=== PATIENT | female | born 1950 | race Caucasian/White ===

== ENCOUNTER 2017-01-24 09:18 | Day surgery (SDC) | payer MEDICARE, OTHER ==
[2017-01-21 08:12] VITALS: BMI 30.9
[2017-01-24] MEDS ORDERED: oxyCODONE HCL 5 MG TABLET PO PRN (12:29)
[2017-01-24] MEDS ORDERED: ONDANSETRON 4 MG/2 ML VIAL IVPUSH PRN (12:29)
[2017-01-24] MEDS ORDERED: LACTATED RINGERS SOLUTION 1,000 ML IV SCH (12:30)
[2017-01-24] MEDS ORDERED: ceFAZolin SODIUM 1 GM VIAL IVPB ONE (13:22)
[2017-01-24] MEDS ORDERED: LIDOCAINE HCL 1%, 10 MG/ML (20ML VIAL) PNB ONE (13:42)
[2017-01-24] MEDS ORDERED: BACITRACIN 50,000 UNITS VIAL TP ONE (13:55)
--- NOTE | 2017-01-24 14:32 | OP ---
Operative Note - Note: Operative Date: 01/24/17 Pre-Operative Diagnosis: urge incontinence Operation: full interstim implant Implants: interstim neuromodulator Post-Operative Diagnosis: Same as Pre-op Surgeon: Silvino Allison Anesthesia: Local, Fractional
[2017-01-24 15:40] VITALS: TEMP 97.6
[2017-01-24 16:28] VITALS: BP 121/76; PULSE 59
--- NOTE | 2017-01-25 12:12 | OP ---
DATE OF OPERATION: 01/24/2017 PREOPERATIVE DIAGNOSIS: Urge incontinence. POSTOPERATIVE DIAGNOSIS: Urge incontinence. PROCEDURE: 1. Complete InterStim system implantation with incision and implantation of tined quadripolar lead electrodes into foramen S3. 2. Fluoroscopic guidance for needle placement. 3. Subcutaneous implantation of sacral nerve neurostimulator, electronic analysis and complex programming. INDICATIONS FOR THE PROCEDURE: Patient has severe urinary frequency and urgency with urge incontinence. The patient was informed of the risks and benefits of the procedures and agreed to undertake this procedure. DESCRIPTION OF PROCEDURE: The patient was properly identified and placed in prone position as per operating room protocol. MAC anesthesia was administered. The patient was given 1 g of Ancef. Pillows were placed under the lower abdomen to flatten the sacrum and under the shins to allow the toes to dangle freely. Tape was placed on each buttock and pulled laterally to separate cheeks adequately to visualize anal sphincter. The patient was prepped and draped in the usual sterile manner using ChloraPrep prep solution. The C-arm was moved into the PA position to provide fluoroscopy visual and the midline of the vertebrae. S1 notches and medial foraminal borders were marked. The C-arm was moved to the lateral position to image the area from sacral promontory to the coccyx. Local injection of lidocaine was administered. A 3.5-inch size needle was introduced approximately 2 cm above the SI notch and 3 cm lateral to the vertebral midline, feeling for foraminal margins until the S3 foramen was identified and penetrated. The depth of the needle was confirmed and adjusted fluoroscopically. Proper needle position was confirmed by patient identification of location of sensation, direct observation of the lifting of the perineum or bellowing, and observation of plantar flexion of the great toe utilizing the test stimulator box. The needle stylet was removed and a directional guidewire was placed and confirmed fluoroscopically. The foramen needle was removed. An incision was made peripherally to the directional guidewire through the fascial layer. The dilator and introducer sheath were placed over the directional guidewire and directed into the foramen until the opaque marker of the dilator was seen on the anterior rim of the sacrum. The dilator obturator was unlocked and removed. The lead was then placed through the introducer sheath to the first white line. Position was checked fluoroscopically. The lead was then further introduced until 3 electrodes were visible below the sacrum. Each electrode was tested for location of patient sensation, visualization of ulises and plantar flexion of the great toe. After satisfactory positioning was confirmed, under continuous fluoroscopy, the introducer sheath was retracted, deploying the lead tines into the perisacral tissue. Further incision was made into the subcutaneous tissue posterior to the iliac crest and blunt dissection was continued until the gluteal fascia was identified and hemostasis was achieved, allowing for a sufficient pocket for the neurostimulator. A tunneling tool and tube were placed from the lead subcutaneously to the incised pocket site. The tunneling tool was removed and the lead was fed through the tube and pulled out at the pocket site. The lead was cleansed of bodily fluids and a boot was placed over the lead. The lead was inserted into the InterStim II pulse generator and the metal bands were aligned with the white lead tip clearly visible in the distal portion of the pulse generator header. The single set screw was tightened with the hex wrench. The pulse generator was placed into the subcutaneous pocket with the etched identification side placed upward and the extension wrapped counterclockwise around the pulse generator. The programming head was placed over the implanted neurostimulator. The impedance was verified to ensure adequate lead placement and the parameters were within normal limits. If impedance is greater than the normal limits, a second interrogation is required. If the second interrogation is required, further troubleshooting may be required. Impedances were checked, confirmed to be within normal limits at greater than 50 and less than 4000. After implantation of the neurostimulator was completed, complex programming of the neurostimulator was performed based on impedance values. Final electrode sensations were set to 0+1-2-. Estimated time for analysis and complex programming was 30 minutes. The wounds were irrigated with antibiotic solution and water and closed with a subcutaneous and subcuticular stitch. Counts were correct. Steri-Strips and gauze were placed over the incision under the cable connector. The estimated blood loss was less than 3 mL. The patient was transferred to postop in satisfactory condition. Using the clinician statistical programmer, the patient was programmed to the lead of optimum sensation and given instructions on utilizing the patient statistical programmer prior to discharge. Conrad [id number]
== END 2017-01-24 16:15 | disposition home or self-care (01) ==
LOC: JASU-SURG 09:18
PROVIDERS: ATTEND Urology
PROC: 4B01XVZ Measurement of Peripheral Nervous Stimulator, External Approach (ICD-10-PCS; 2017-01-24)
PROC: 0JH70BZ Insertion of Single Array Stimulator Generator into Back Subcutaneous Tissue and Fascia, Open Approach (ICD-10-PCS; 2017-01-24)
PROC: 01HY0MZ Insertion of Neurostimulator Lead into Peripheral Nerve, Open Approach (ICD-10-PCS; 2017-01-24)
PROC: 4B01XVZ Measurement of Peripheral Nervous Stimulator, External Approach (ICD-10-PCS; 2017-01-24)
PROC: 0JH70BZ Insertion of Single Array Stimulator Generator into Back Subcutaneous Tissue and Fascia, Open Approach (ICD-10-PCS; principal; 2017-01-24 11:00)
DX: N39.41 Urge incontinence (principal); R35.0 Frequency of micturition
CPT/HCPCS: 64581; 64590; 95972; C1767; 76000-TC; 94760

== ENCOUNTER 2017-09-01 09:04 | Emergency (ER) | payer MEDICARE, OTHER ==
[2017-09-01 09:11] VITALS: TEMP 97.7; BMI 31.4
--- NOTE | 2017-09-01 10:00 | PDOC ---
History of Present Illness - History of Present Illness Initial Comments: 09/01/17 12:58 Patient is a 67 year old female with a significant past medical history of Seizure, Dementia, Hypercholesterolemia, recurrent UTI, Diet controlled diabetes , who presents to the ED with complaints of increased crying that began earlier this week. As per patient's , patient has been experiencing increased movement of her bowels, which he states began to worry him, prompting him to bring her into the ED for further evaluation. He reports taking the patient to see Dr. Maya but states the symptoms have been persistent since the appointment. Denies chest pain, Sob. Denies nausea, vomiting. Denies contact with sick individuals, out of state travelling. Denies diarrhea, constipation, dysuria, hematuria. Denies fever,chills. Denies any other symptoms. Allergies: Ciprofloxacin Social history: Surgical history: Right foot surgery. PMD: Dr. 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 - Suicide/Smoking/Psychosocial Hx Smoking History: Never smoked Have you smoked in the past 12 months: No Information on smoking cessation initiated: No Hx Alcohol Use: No Drug/Substance Use Hx: No Substance Use Type: None Hx Substance Use Treatment: No <Ge Rand - Last Filed: 09/01/17 13:03> - Past Medical History Allergies/Adverse Reactions: Allergies Allergy/AdvReac Type Severity Reaction Status Date / Time ciprofloxacin Allergy Intermediate Rash Verified 09/01/17 09:06 Home Medications: Ambulatory Orders Albuterol Sulfate Inhaler - [Ventolin HFA Inhaler -] 1 - 2 inh PO QID 12/31/14 Aspirin [Ecotrin] 81 mg PO DAILY 12/31/14 Atorvastatin Ca [Lipitor] 10 mg PO HS 01/21/17 Memantine HCl/Donepezil HCl [Namzaric 7 mg-10 mg Capsule] 1 each PO DAILY Oxybutynin Chloride [Oxybutynin Chloride ER] 10 mg PO DAILY 01/21/17 Phenobarbital 32.4 mg PO BID 01/21/17 Phenobarbital 60 mg PO BID 01/21/17 Amox-Tr/K Cl [Augmentin - 500Mg Tablet] 1 tab PO BID #14 tab 01/24/17 Cephalexin [Keflex] 500 mg PO BID #14 capsule 09/01/17 Review of Systems - Review of Systems Able to Perform ROS?: Yes Comments:: 09/01/17 12:58 GENERAL/CONSTITUTIONAL: No fever or chills. No weakness. HEAD, EYES, EARS, NOSE AND THROAT: No change in vision. No ear pain or discharge. No sore throat. CARDIOVASCULAR: No chest pain or shortness of breath. RESPIRATORY: No cough, wheezing, or hemoptysis. GASTROINTESTINAL: +Frequent bowel movements. No nausea, vomiting, diarrhea or constipation. GENITOURINARY: No dysuria, frequency, or change in urination. MUSCULOSKELETAL: No joint or muscle swelling or pain. No neck or back pain. SKIN: No rash NEUROLOGIC: No headache, vertigo, loss of consciousness, or change in strength/ sensation. ENDOCRINE: No increased thirst. No abnormal weight change. HEMATOLOGIC/LYMPHATIC: No anemia, easy bleeding, or history of blood clots. ALLERGIC/IMMUNOLOGIC: No hives or skin allergy. <Chris Wilson - Last Filed: 09/01/17 12:58> *Physical Exam - Vital Signs Last Vital Signs Temp Pulse Resp BP Pulse Ox 97.7 F 70 16 112/69 100 09/01/17 09:06 09/01/17 09:06 09/01/17 09:06 09/01/17 09:06 09/01/17 09:06 - Physical Exam Comments: 09/01/17 12:59 GENERAL: Awake, alert, in no acute distress HEAD: No signs of trauma EYES: PERRLA, EOMI, sclera anicteric, conjunctiva clear ENT: Auricles normal inspection, hearing grossly normal, nares patent, oropharynx clear without exudates. Moist mucosa NECK: Normal ROM, supple, no lymphadenopathy, JVD, or masses LUNGS: Breath sounds equal, clear to auscultation bilaterally. No wheezes, and no crackles HEART: Regular rate and rhythm, normal S1 and S2, no murmurs, rubs or gallops ABDOMEN: Soft, nontender, normoactive bowel sounds. No guarding, no rebound. No masses EXTREMITIES: Normal range of motion, no edema. No clubbing or cyanosis. No cords, erythema, or tenderness NEUROLOGICAL: +AAOx0. +Non verbal Cranial nerves II through XII grossly intact. Normal speech, normal gait SKIN: Warm, Dry, normal turgor, no rashes or lesions noted. <Chris Wilson - Last Filed: 09/01/17 12:58> - Vital Signs Last Vital Signs Temp Pulse Resp BP Pulse Ox 97.7 F 70 16 112/69 100 09/01/17 09:06 09/01/17 09:06 09/01/17 09:06 09/01/17 09:06 09/01/17 09:06 <Ge Rand - Last Filed: 09/01/17 13:03> Heart Score/ECG Review #1 ECG reviewed & interpreted by me at: 10:10 09/01/17 12:09 NSR 58, no std/filipe, TWI III, normal axis, normal intervals, QTC 422 msec <Ge Rand - Last Filed: 09/01/17 13:03> ED Treatment Course - LABORATORY CBC & Chemistry Diagram: 09/01/17 10:25 09/01/17 10:25 - ADDITIONAL ORDERS Additional order review: Laboratory Results 09/01/17 09/01/17 11:00 10:25 Sodium 141 Potassium 4.0 Chloride 106 Carbon Dioxide 31 Anion Gap 4 L BUN 13 Creatinine 0.8 Creat Clearance w eGFR > 60 Random Glucose 88 Calcium 8.6 Magnesium 2.4 Total Bilirubin 0.2 AST 22 ALT 14 Alkaline Phosphatase 137 H Creatine Kinase 188 Creatine Kinase Index 1.7 CK-MB (CK-2) 3.291 Troponin I < 0.02 Total Protein 7.2 Albumin 3.7 Urine Color Ltyellow Urine Appearance Clear Urine pH 8.0 Ur Specific [place] 1.008 Urine Protein Negative Urine Glucose (UA) Negative Urine Ketones Negative Urine Blood 2+ H Urine Nitrite Negative Urine Bilirubin Negative Urine Urobilinogen Negative Ur Leukocyte Esterase 1+ H 09/01/17 10:25 RBC 4.24 MCV 92.7 MCHC 33.6 RDW 13.9 MPV 10.1 Neutrophils % 55.9 Lymphocytes % 21.9 Monocytes % 7.4 Eosinophils % 14.0 H Basophils % 0.8 <Chris Wilson - Last Filed: 09/01/17 12:58> - LABORATORY CBC & Chemistry Diagram: 09/01/17 10:25 09/01/17 10:25 <Ge Rand - Last Filed: 09/01/17 13:03> Medical Decision Making - Medical Decision Making 09/01/17 09:59 A portion of this note was documented by scribe services under my direction. I have reviewed the details of the note, within reason, and agree with the documentation with the following case summary and management plan written by me. Patient treated in the ED. Nursing notes are reviewed and incorporated into the medical decision-making. Vital signs reviewed. Peripheral IV access obtained by the nurse, laboratory studies are drawn and sent, reviewed and interpreted by myself. Vital Signs Temp Pulse Resp BP Pulse Ox 97.7 F 70 16 112/69 100 09/01/17 09:06 09/01/17 09:06 09/01/17 09:06 09/01/17 09:06 09/01/17 09:06 67 year old female with diet-controlled diabetes, hyperlipidemia, seizure disorder, dementia, history urinary tract infections presents with increasing crying. The history is obtained from the patient's as the patient is demented. The patient's reports that the last 2 weeks, the patient has been increasingly crying more often though without other acute focal pathology. Has noticed that the patient has been moving her bowels more frequent throughout the night but not loose or diarrhea like. The patient never endorsed any nausea, vomiting or fevers or abdominal pain. Patient otherwise cannot specify any acute symptoms. The patient went to follow-up with Dr. Maya for visit at that time. However, since then the patient has been having these persistent symptoms and brought the patient to the ER. The patient overall is nontoxic appearing and without complaints. She has had some increased stooling but not diarrhea like. I have low suspicion for infection at this time. We'll obtain a urinalysis. I will touch base with the patient's primary care physician. The patient is otherwise well-appearing. Could this crying be secondary to her advancing dementia? I feel that the patient is otherwise can be discharged with follow-up at home. I do not suspect colitis or gastroenteritis or other acute abdominal pathology at this time. 09/01/17 13:00 CBC, BMP 09/01/17 10:25 09/01/17 10:25 CMP Sodium 141 mmol/L (136-145) 09/01/17 10:25 Potassium 4.0 mmol/L (3.5-5.1) 09/01/17 10:25 Chloride 106 mmol/L (98-107) 09/01/17 10:25 Carbon Dioxide 31 mmol/L (21-32) 09/01/17 10:25 Anion Gap 4 (8-16) L 09/01/17 10:25 BUN 13 mg/dL (7-18) 09/01/17 10:25 Creatinine 0.8 mg/dL (0.55-1.02) 09/01/17 10:25 Creat Clearance w eGFR > 60 (>60) 09/01/17 10:25 Random Glucose 88 mg/dL (74-106) 09/01/17 10:25 Calcium 8.6 mg/dL (8.5-10.1) 09/01/17 10:25 Magnesium 2.4 mg/dL (1.8-2.4) 09/01/17 10:25 Total Bilirubin 0.2 mg/dL (0.2-1.0) 09/01/17 10:25 AST 22 U/L (15-37) 09/01/17 10:25 ALT 14 U/L (12-78) 09/01/17 10:25 Alkaline Phosphatase 137 U/L (45-117) H 09/01/17 10:25 Creatine Kinase 188 IU/L (26-192) 09/01/17 10:25 Creatine Kinase Index 1.7 % (0.0-5.0) 09/01/17 10:25 CK-MB (CK-2) 3.291 ng/mL (0.5-3.6) 09/01/17 10:25 Troponin I < 0.02 ng/ml (0.00-0.05) 09/01/17 10:25 Total Protein 7.2 g/dl (6.4-8.2) 09/01/17 10:25 Albumin 3.7 g/dl (3.4-5.0) 09/01/17 10:25 Urine Test Results Urine Color Ltyellow 09/01/17 11:00 Urine Appearance Clear 09/01/17 11:00 Urine pH 8.0 (5.0-8.0) 09/01/17 11:00 Ur Specific [place] 1.008 (1.001-1.035) 09/01/17 11:00 Urine Protein Negative (NEGATIVE) 09/01/17 11:00 Urine Glucose (UA) Negative (NEGATIVE) 09/01/17 11:00 Urine Ketones Negative (NEGATIVE) 09/01/17 11:00 Urine Blood 2+ (NEGATIVE) H 09/01/17 11:00 Urine Nitrite Negative (NEGATIVE) 09/01/17 11:00 Urine Bilirubin Negative (<2.0 mg/dL) 09/01/17 11:00 Ur Leukocyte Esterase 1+ (NEGATIVE) H 09/01/17 11:00 Ur Epithelial Cells Rare /HPF (FEW) 09/01/17 11:00 We have placed a page out to Dr. Maya. Awaiting phone calls. However, pt's is requesting to go home. It is unclear why the patient is moving her bowels more frequently (not diarrhea ). However, given that the patient is overall well-appearing and nontoxic, the patient can be discharged with outpatient follow up. I will prescribe keflex for the UTI. I discussed the physical exam findings, ancillary test results and final diagnoses with the patient. I answered all of the patient's questions. The patient was satisfied with the care received and felt comfortable with the discharge plan and treatment plan. The patient will call their primary care physician within 24 hours to arrange follow-up and will return to the Emergency Department with any new, persistant or worsening symptoms. <Ge Rand - Last Filed: 09/01/17 13:03> *DC/Admit/Observation/Transfer - Attestations Scribe Attestion: 09/01/17 12:59 Documentation prepared by Chris Wilson, acting as lpn or medical assistant for Ge Rand MD, /DO. <Chris Wilson - Last Filed: 09/01/17 12:58> - Discharge Dispostion Decision to Admit order: No <Ge Rand - Last Filed: 09/01/17 13:03> Diagnosis at time of Disposition: UTI (urinary tract infection) Qualifiers: Urinary tract infection type: site unspecified Hematuria presence: without hematuria Qualified Code(s): N39.0 - Urinary tract infection, site not specified - Discharge Dispostion Disposition: HOME Condition at time of disposition: Stable - Prescriptions Prescriptions: Cephalexin [Keflex] 500 mg PO BID #14 capsule - Referrals Referrals: Irsael Maya MD [Primary Care Provider] - - Patient Instructions Printed Discharge Instructions: DI for Urinary Tract Infection (UTI) Additional Instructions: Please take the keflex 500 mg every 12 hours for the next week for the urine infection. Please take them every day. Follow up with Dr. Maya. Print Language: [place] - Post Discharge Activity
[2017-09-01 10:38] LABS: BASO % 0.8 % (0-2.0); HEMATOCRIT 39.4 % (32.4-45.2); HEMOGLOBIN 13.2 GM/dL (10.7-15.3); LYMPH % 21.9 % (8-40); MCH 31.1 pg (25.7-33.7); MCHC 33.6 g/dl (32.0-36.0); MEAN CELL VOLUME 92.7 fl (80-96); MEAN PLT VOLUME 10.1 fl (7.5-11.1); MONO % 7.4 % (3.8-10.2); NEUT % 55.9 % (42.8-82.8); PLATELET COUNT 184 K/MM3 (134-434); RBC 4.24 M/mm3 (3.60-5.2); RDW 13.9 % (11.6-15.6); WHITE BLOOD COUNT 6.6 K/mm3 (4.0-10.0)
[2017-09-01 10:59] LABS: ALBUMIN 3.7 g/dl (3.4-5.0); ANION GAP 4 (8-16); BILIRUBIN,TOTAL 0.2 mg/dL (0.2-1.0); BLOOD UREA NITROGEN 13 mg/dL (7-18); CALCIUM 8.6 mg/dL (8.5-10.1); CHLORIDE 106 mmol/L (98-107); CO2 31 mmol/L (21-32); CREATININE 0.8 mg/dL (0.55-1.02); GLUCOSE,RANDOM 88 mg/dL (74-106); MAGNESIUM 2.4 mg/dL (1.8-2.4); SGOT/AST 22 U/L (15-37); SGPT/ALT 14 U/L (12-78); SODIUM 141 mmol/L (136-145); TOT PROT 7.2 g/dl (6.4-8.2)
[2017-09-01 11:02] LABS: ALK PHOS 137 U/L (45-117)
[2017-09-01 11:21] LABS: URINE APPEARANCE CLEAR; URINE BILIRUBIN NEGATIVE (<2.0 mg/dL); URINE COLOR LTYELLOW; URINE GLUCOSE (UA) NEGATIVE (NEGATIVE); URINE KETONE NEGATIVE (NEGATIVE); URINE NITRITE NEGATIVE (NEGATIVE); URINE PROTEIN NEGATIVE (NEGATIVE); URINE UROBILINOGEN NEGATIVE mg/dL (0.2-1.0)
[2017-09-01 11:24] LABS: URINE LEUK ESTERASE 1+ (NEGATIVE)
[2017-09-01 12:00] LABS: EPI CELLS RARE /HPF (FEW)
[2017-09-01] MEDS ORDERED: CEPHALEXIN MONOHYDRATE 500 MG CAPSULE (UD) PO ONE (13:34)
[2017-09-01] MEDS ORDERED: CEPHALEXIN MONOHYDRATE 500 MG CAPSULE (UD) ONE (13:36)
[2017-09-01 13:53] VITALS: BP 129/79; PULSE 73
--- NOTE | 2017-09-02 09:46 | EKG ---
Test Reason : Blood Pressure : / mmHG Vent. Rate : 058 BPM Atrial Rate : 058 BPM P-R Int : 154 ms QRS Dur : 074 ms QT Int : 430 ms P-R-T Axes : 046 008 012 degrees QTc Int : 422 ms SINUS BRADYCARDIA OTHERWISE NORMAL ECG NO PREVIOUS ECGS AVAILABLE Confirmed by KELSI CEBALLOS MD ([id number]) on 09/02/2017 9:45:50 AM Referred By: Confirmed By:KELSI CEBALLOS MD
== END 2017-09-01 13:54 | disposition home or self-care (01) ==
LOC: JER 09:04
DX: N39.0 Urinary tract infection, site not specified (principal); G30.8 Other Alzheimer's disease; F02.80 Dementia in other diseases classified elsewhere, unspecified severity, without behavioral disturbance, psychotic disturbance, mood disturbance, and anxiety; E11.9 Type 2 diabetes mellitus without complications; E78.00 Pure hypercholesterolemia, unspecified; Z86.69 Personal history of other diseases of the nervous system and sense organs; Z87.09 Personal history of other diseases of the respiratory system
CPT/HCPCS: 36415; 80053; 81003; 81015; 82550; 82553; 83735; 84484; 85025; 87086; 93005; 93010; 99283-25

== ENCOUNTER 2017-09-07 07:15 | Emergency (ER) | payer MEDICARE, OTHER ==
--- NOTE | 2017-09-07 07:18 | PDOC ---
Attending Attestation - HPI HPI: 09/07/17 08:01 The patient is a 67 year old female, with a significant past medical history of seizures, dementia, hyperlipidemia, recurrent UTIs, and diet controlled diabetes , who presents to the emergency department BIB from home, for evaluation of altered mental status since this morning. As per , the patient was difficult to arouse this morning, and was making a gagging noise. The reports she was not shaking, but difficult to wake up. He reports patient is now back at baseline. reports she is minimally verbal, and incontinent of stool and urine at baseline. No recent travel or sick contacts. - Physicial Exam PE: 09/07/17 08:04 Constitutional: Awake, alert, oriented to person. No acute distress. Nonverbal , but able to track movement with her eyes and smile. Head: Normocephalic. Atraumatic Eyes: PERRL. EOMI. Conjunctivae are not pale. ENT: Mucous membranes are moist and intact. Posterior pharynx without exudates or erythema. Uvula midline. No tongue biting Neck: Supple. Full ROM. No lymphadenopathy. Cardiovascular: Regular rate. Regular rhythm. S1, S2 regular. Distal pulses are 2+ and symmetric. Pulmonary/Chest: Poor inspiratory effort, but otherwise clear to auscultation bilaterally. No evidence of respiratory distress. No wheezing, rales or rhonchi. Abdominal: Soft and non-distended. There is no tenderness. No rebound, guarding or rigidity. No organomegaly. No palpable masses. Good bowel sounds. Back: No CVA tenderness. Musculoskeletal: No edema. No cyanosis. No clubbing. Full range of motion in all extremities. No calf tenderness. Radial/pedal pulses are intact and 2+ bilaterally Skin: Skin is warm and dry. No petechiae. No purpura. Neurological: Alert and oriented to person. Cranial nerves II-XII are grossly intact. Strength is grossly symmetric. No sensory deficits. Psychiatric: Good eye contact. Normal interaction, affect and behavior. - Medical Decision Making 09/07/17 08:01 Documentation prepared by Joby García, acting as medical laboratory technicians for Tenisha Real DO. <Joby García - Last Filed: 09/07/17 08:11> - Resident Resident Name: Young,Dwight - ED Attending Attestation I have performed the following: I have examined & evaluated the patient, The case was reviewed & discussed with the resident, I agree w/resident's findings & plan, Exceptions are as noted - Medical Decision Making 09/07/17 07:18 I, Dr. Tenisha Real, DO, attest that this document has been prepared under my direction and personally reviewed by me in its entirety. I further attest, that it accurately reflects all work, treatment, procedures and medical decision -making performed by me. 09/07/17 08:08 a/p: 67yo female with alzheimers dementia and hx of seizures biba for eval of being unarousable this am -per the , pt made girgling sound, when he tried to wake her up she was difficult to arouse -arrives in the ED awake, minimally verbal at baseline -no shaking per the - states at baseline MS at this time -pt follows commands, smiles, tracks with eyes, moving all extremities -hx of UTI -hypothermic on rectal upon arrival -will obtain labs, cultures, ua, head ct, ekg, cxr -will monitor and reassess 09/07/17 08:10 repeat temp is 97 09/07/17 10:00 pt crying that she wants to go home per , will take phenobarb for seizures in the Am, but sometimes throws the pills out at night no shaking, drooling, foaming at the mouth this AM will dose am dose of phenobarb no acute findings on labs or head ct or cxr will po challenge has been at baseline MS 09/07/17 12:55 pt tolerated PO has been at baseline MS family and pat want to go home discussed all reasons to return to the ED. pt ambulatory in the ED wants to take her home <Tenisha Real - Last Filed: 09/07/17 12:55> Heart Score/ECG Review - ECG Intrepretation Comment:: 09/07/17 08:08 sinus at 77, nl axis, nl interval, no acute st/t wave findings, t wave flattening diffusely <Tenisha Real - Last Filed: 09/07/17 12:55>
[2017-09-07 07:22] VITALS: BMI 28.3
--- NOTE | 2017-09-07 07:38 | PDOC ---
History of Present Illness - General Chief Complaint: Altered Mental Status Stated Complaint: POSSIBLE SEIZURE Time Seen by Provider: 09/07/17 07:17 - History of Present Illness Initial Comments: 09/07/17 07:36 67 yo F with h/o Seizure, Dementia, Hypercholesterolemia, recurrent UTI, Diet controlled diabetes, BIBA with AMS. Per EMS patient called EMS because patient was unresponsive to painful stimuli and unarousable this AM, when he attempted to wake her up. states that patient was found in bed making "gargling" sounds, with no witnessed convulsions or abnormal posturing this AM. No report of fall, head/neck/back trauma. Last known well yesterday evening 1000 PM before going to sleep. EMS states that patient was urinary incontinent upon arrival. Patient with baseline urinary and fecal incontinence. Seen in [facility] ED earlier this week ( 09/01) for increased crying spells. Patient unable to provide history ( non verbal at baseline). PMH: as noted above SHx: Unable to provide. Surgical Hx: Right foot surgery. PMD: Dr. Maya Allergies: Ciprofloxacin Past History - Past Medical History Allergies/Adverse Reactions: Allergies Allergy/AdvReac Type Severity Reaction Status Date / Time ciprofloxacin Allergy Intermediate Rash Verified 09/07/17 07:16 Home Medications: Ambulatory Orders Aspirin [Ecotrin] 81 mg PO DAILY 12/31/14 Atorvastatin Ca [Lipitor] 10 mg PO HS 01/21/17 Oxybutynin Chloride [Oxybutynin Chloride ER] 10 mg PO DAILY 01/21/17 Phenobarbital 32.4 mg PO BID 01/21/17 Phenobarbital 60 mg PO BID 01/21/17 Albuterol Sulfate Inhaler - [Ventolin Hfa Inhaler -] 1 - 2 inh PO Q4H PRN Cetirizine HCl [Zyrtec -] 10 mg PO DAILY 09/07/17 Escitalopram Oxalate [Lexapro -] 10 mg PO DAILY 09/07/17 Fluticasone Prop 0.05% Nasal [Flonase -] 1 spray NS BID 09/07/17 Folic Acid 1 mg PO DAILY 09/07/17 Memantine HCl/Donepezil HCl [Namzaric 28 mg-10 mg Capsule] 1 each PO DAILY 09/07 Asthma: Yes COPD: No Dementia: Yes Disorders: Yes (HEMATURIA, incontinency) HTN: Yes Hypercholesterolemia: Yes Seizures: Yes - Suicide/Smoking/Psychosocial Hx Smoking History: Never smoked Have you smoked in the past 12 months: No Information on smoking cessation initiated: No Hx Alcohol Use: No Drug/Substance Use Hx: No Substance Use Type: None Hx Substance Use Treatment: No Review of Systems - Review of Systems Comments:: 09/07/17 07:40 Unable to obtain. Limited 2/2 AMS. *Physical Exam - Vital Signs Last Vital Signs Temp Pulse Resp BP Pulse Ox 95.4 F L 80 20 103/41 100 09/07/17 07:16 09/07/17 07:16 09/07/17 07:16 09/07/17 07:16 09/07/17 07:16 - Physical Exam Comments: 09/07/17 07:40 GENERAL: Awake, alert, in no acute distress. Non verbal at baseline. Non communicative. HEAD: No signs of trauma, normocephalic, atraumatic EYES: PERRLA, EOMI, sclera anicteric, conjunctiva clear ENT: Auricles normal inspection, hearing grossly normal, nares patent, oropharynx clear without exudates. Moist mucosa NECK: Normal ROM, supple, no lymphadenopathy, JVD, or masses LUNGS: No distress, speaks full sentences, clear to auscultation bilaterally HEART: Regular rate and rhythm, normal S1 and S2, no murmurs, rubs or gallops, peripheral pulses normal and equal bilaterally. ABDOMEN: Soft, nontender, normoactive bowel sounds. No guarding, no rebound. No masses EXTREMITIES : Normal inspection, Normal range of motion, no edema. No clubbing or cyanosis. NEUROLOGICAL:Limited. Cranial nerves II through XII grossly intact. No focal sensorimotor deficits SKIN: Warm, Dry, normal turgor, no rashes or lesions noted ED Treatment Course - LABORATORY CBC & Chemistry Diagram: 09/07/17 07:40 09/07/17 07:40 - RADIOLOGY Radiology Studies Ordered: Category Date Time Status CXRPORT [CHEST X-RAY PORTABLE*] [RAD] Stat Radiology 09/07/17 07:23 Taken Medical Decision Making - Medical Decision Making 09/07/17 07:54 67 yo F with h/o Seizure, Dementia, Hypercholesterolemia, recurrent UTI, Diet controlled diabetes, BIBA with AMS. Alert, non verbal at baselin. No obvious deficits on physical exam. Per patient is now at baseline mental status. VSS. BS ~85 per EMS. Will evaluate for hypoglycemia, seizure/postictal phase, underlying electrolyte abnml, metabolic derangements, toxic and acid- base disturbance, and underlying infections. ED Course: CBC, CMP, Lactic acid, Cardiac Blood cx. Urine cx NS [address] HEAD, CXR, EKG 09/07/17 10:13 CBC: Unremarkable CK: 209 Trop: neg CT HEAD: No acute intracranial pathology. CXR: Unremarkable UA: Neg Phenobarbital 60 mg. Patient can tolerate PO intake. Patient safe for d/c with return precautions. *DC/Admit/Observation/Transfer Diagnosis at time of Disposition: Altered mental status Qualifiers: Altered mental status type: unspecified Qualified Code(s): R41.82 - Altered mental status, unspecified - Referrals Referrals: Israel Maya MD [Primary Care Provider] - - Patient Instructions Printed Discharge Instructions: DI for Altered Mental Status Additional Instructions: Please return to the emergency department with any new or worsening symptoms or concerns. Please follow up with your primary care physician within 72 hours. - Post Discharge Activity - Attestations Physician Attestion: 09/07/17 10:15 I attest to the information provided in this note.
[2017-09-07] MEDS ORDERED: SODIUM CHLORIDE 1,000 ML IV STA (07:47)
[2017-09-07 07:55] LABS: HEMATOCRIT 39.8 % (32.4-45.2); HEMOGLOBIN 13.4 GM/dL (10.7-15.3); MCH 31.3 pg (25.7-33.7); MCHC 33.6 g/dl (32.0-36.0); MEAN CELL VOLUME 93.2 fl (80-96); MEAN PLT VOLUME 9.7 fl (7.5-11.1); PLATELET COUNT 194 K/MM3 (134-434); RBC 4.27 M/mm3 (3.60-5.2); WHITE BLOOD COUNT 5.3 K/mm3 (4.0-10.0)
[2017-09-07 08:07] VITALS: TEMP 97.5
[2017-09-07 08:11] LABS: INR 0.95 (0.82-1.09); PROTHROMBIN TIME (PATIENT) 10.7 SEC (9.7-13.0)
[2017-09-07 08:28] LABS: ALBUMIN 3.6 g/dl (3.4-5.0); ALK PHOS 133 U/L (45-117); ANION GAP 6 (8-16); BILIRUBIN,TOTAL 0.3 mg/dL (0.2-1.0); BLOOD UREA NITROGEN 9 mg/dL (7-18); CHLORIDE 106 mmol/L (98-107); CO2 30 mmol/L (21-32); CREATININE 0.8 mg/dL (0.55-1.02); GLUCOSE,RANDOM 87 mg/dL (74-106); SGPT/ALT 17 U/L (12-78); SODIUM 142 mmol/L (136-145); TOT PROT 7.1 g/dl (6.4-8.2)
[2017-09-07 08:28] LABS: URINE APPEARANCE CLEAR; URINE BILIRUBIN NEGATIVE (<2.0 mg/dL); URINE COLOR LTYELLOW; URINE GLUCOSE (UA) NEGATIVE (NEGATIVE); URINE KETONE NEGATIVE (NEGATIVE); URINE LEUK ESTERASE NEGATIVE (NEGATIVE); URINE NITRITE NEGATIVE (NEGATIVE); URINE PROTEIN NEGATIVE (NEGATIVE); URINE UROBILINOGEN NEGATIVE mg/dL (0.2-1.0)
[2017-09-07 08:39] LABS: POTASSIUM 4.4 mmol/L (3.5-5.1); SGOT/AST 28 U/L (15-37)
[2017-09-07 08:49] LABS: EPI CELLS RARE /HPF (FEW); URINE MUCUS RARE
[2017-09-07 09:47] LABS: PLATELET ESTIMATE NORMAL
[2017-09-07] MEDS ORDERED: PHENobarbital 30 MG TABLET PO ONE ×2 (10:00)
[2017-09-07 10:23] VITALS: BP 124/57; PULSE 79
--- NOTE | 2017-09-07 11:49 | EKG ---
Test Reason : Blood Pressure : / mmHG Vent. Rate : 077 BPM Atrial Rate : 077 BPM P-R Int : 162 ms QRS Dur : 068 ms QT Int : 378 ms P-R-T Axes : 056 027 016 degrees QTc Int : 427 ms NORMAL SINUS RHYTHM NORMAL ECG WHEN COMPARED WITH ECG OF 01-SEP-2017 10:09, NO SIGNIFICANT CHANGE WAS FOUND Confirmed by ABIMBOLA DURAND MD ([id number]) on 09/07/2017 11:49:07 AM Referred By: Confirmed By:ABIMBOLA DURAND MD
== END 2017-09-07 11:05 | disposition home or self-care (01) ==
LOC: JER 07:15
PROC: 3E0337Z Introduction of Electrolytic and Water Balance Substance into Peripheral Vein, Percutaneous Approach (ICD-10-PCS; principal; 2017-09-07)
DX: R41.82 Altered mental status, unspecified (principal); F03.90 Unspecified dementia, unspecified severity, without behavioral disturbance, psychotic disturbance, mood disturbance, and anxiety; Z87.440 Personal history of urinary (tract) infections; E11.9 Type 2 diabetes mellitus without complications
CPT/HCPCS: 36415; 70450-TC; 71045-TC-FY; 80053; 81003; 81015; 82550; 82553; 82962; 83605; 84484; 85025; 85610; 87040; 87086; 93005; 93010; 96360; 99284-25; J7030

== ENCOUNTER 2017-09-09 09:27 | Emergency (ER) | payer MEDICARE, OTHER ==
--- NOTE | 2017-09-09 10:13 | PDOC ---
History of Present Illness - General Chief Complaint: Vaginal Bleeding Stated Complaint: BLEEDING (ALTERED MENTAL STATUS) Time Seen by Provider: 09/09/17 10:05 History Source: Spouse Exam Limitations: Dementia - History of Present Illness Initial Comments: CHIEF COMPLAINT: 67 y/o afebrile female with dementia, HLD, asthma here from home with and home health aide because of 2 episodes of vaginal bleeding this morning. HISTORY OF PRESENT ILLNESS: and aide state last night the patient reported abdominal pain and they noticed bright red blood in the patient's diaper twice this morning. and aide deny fever, cough, hemoptysis, n/v/d , constipation, hematemesis, BRBPR, melena. The patient has been seen here in the past for hematuria. PMD is Dr. Maya Vital signs on arrival are within normal limits. REVIEW OF SYSTEMS: Provided by . GENERAL/CONSTITUTIONAL: No fever/chills. RESPIRATORY: No cough, hemoptysis. GASTROINTESTINAL: +abdominal pain. No vomiting, diarrhea, constipation, BRPBR, melena, hematemsis. GENITOURINARY: No change in urination. +vaginal bleeding SKIN: No rash or easy bruising. NEUROLOGIC: No LOC PHYSICAL EXAM: GENERAL: The patient is awake, alert, demented. HEAD: Normal with no signs of trauma. ABDOMEN: Soft, non-distended, minimal TTP of suprapubic region, no hepatomegaly or splenomegaly, no masses. VAGINAL: Some blood seen on external vaginal opening. RECTAL: soft light brown stool without visible blood. No masses EXTREMITIES: Normal range of motion, no edema. NEUROLOGICAL: Normal speech, normal gait. CN II-XII grossly intact. SKIN: Warm, dry, normal turgor, no rashes or lesions noted. Past History - Past Medical History Allergies/Adverse Reactions: Allergies Allergy/AdvReac Type Severity Reaction Status Date / Time ciprofloxacin Allergy Intermediate Rash Verified 09/09/17 10:03 Home Medications: Ambulatory Orders Aspirin [Ecotrin] 81 mg PO DAILY 12/31/14 Atorvastatin Ca [Lipitor] 10 mg PO HS 01/21/17 Oxybutynin Chloride [Oxybutynin Chloride ER] 10 mg PO DAILY 01/21/17 Phenobarbital 32.4 mg PO BID 01/21/17 Phenobarbital 60 mg PO BID 01/21/17 Albuterol Sulfate Inhaler - [Ventolin Hfa Inhaler -] 1 - 2 inh PO Q4H PRN Cetirizine HCl [Zyrtec -] 10 mg PO DAILY 09/07/17 Escitalopram Oxalate [Lexapro -] 10 mg PO DAILY 09/07/17 Fluticasone Prop 0.05% Nasal [Flonase -] 1 spray NS BID 09/07/17 Folic Acid 1 mg PO DAILY 09/07/17 Memantine HCl/Donepezil HCl [Namzaric 28 mg-10 mg Capsule] 1 each PO DAILY 09/07 Sulfamethoxazole/Trimethoprim [Bactrim Ds -] 1 tab PO TID #12 tablet 09/09/17 Asthma: Yes COPD: No Dementia: Yes (alzehimers.) Disorders: Yes (HEMATURIA, incontinency) HTN: Yes Hypercholesterolemia: Yes Seizures: Yes - Suicide/Smoking/Psychosocial Hx Smoking History: Never smoked Have you smoked in the past 12 months: No Information on smoking cessation initiated: No Hx Alcohol Use: No Drug/Substance Use Hx: No Substance Use Type: None Hx Substance Use Treatment: No *Physical Exam - Vital Signs Last Vital Signs Temp Pulse Resp BP Pulse Ox 0/0 09/09/17 09:57 ED Treatment Course - LABORATORY CBC & Chemistry Diagram: 09/09/17 10:28 09/09/17 10:28 Medical Decision Making - Medical Decision Making A/P: 67 y/o female with reported 2 episodes of vaginal bleeding when diaper being changed this morning. Plan is as follows: 1. Labs 2. Stool occult 3. UA/culture 4. Transvaginal ultrasound Patient's refused transvaginl ultrasound. It appears blood is coming from urethra. Will send for kidney/renal ultrasound Kidney/renal ultrasound IMPRESSION: No hydro or nephrolithiasis. incidental finding of gallstones with dilated common bile duct. Gallbladder ultrasound recommended. Gallbladder ultrasound ordered IV ofirmev ordered. *DC/Admit/Observation/Transfer Diagnosis at time of Disposition: UTI (urinary tract infection), Ovarian cyst, Gallstone - Discharge Dispostion Disposition: HOME Condition at time of disposition: Stable - Prescriptions Prescriptions: Sulfamethoxazole/Trimethoprim [Bactrim Ds -] 1 tab PO TID #12 tablet - Referrals Referrals: Silvino Allison MD [Staff Physician] - - Patient Instructions Printed Discharge Instructions: DI for Urinary Tract Infection (UTI), DI for Hematuria Additional Instructions: You were seen in the ER for a blood in the urine and abdominal pain. We did laboratory tests on your urine and found blood in the urine, as well as a bladder infection. We gave you medications and IV fluids which helped your symptoms, and a dose of antibiotics. We did a CT of the abdomen and pelvis, and an ultrasound of the abdomen, and we saw an ovarian cyst and gallbladder stones which are not likely an emergency problem. After our assessment, we do not believe you are having a medical emergency at this time, and we believe you are safe to go home. operator supply and take your prescription for antibiotic that we are sending electronically to your pharmacy. We are giving you information Dr. David Orourke's clinic, and you should call them on Tuesday morning to make an appointment to come in on Tuesday08/27/21. Please also take over the counter pain medications for pain (like Tylenol), following the instructions on the medication label. Please follow up with your regular doctor in 1-3 days. Call their clinic [facility], tell them you were seen in the ER, and tell them you need an appointment. Please come back to the ER at any time, 24 hours a day, for any new or worsening symptoms, like worsening pain unrelieved with medications, fever, inability to urinate, burning on urination, or other symptoms. If you are having severe or life threatening symptoms, or symptoms that make it unsafe to drive or have someone drive you, please call 911. Que fueron vistos en el ER para yesenia en la orina y dolor abdominal. Hicimos pruebas de laboratorio en la orina y encontraron yesenia en la orina, as kary bernice infeccin de la vejiga. Le dimos los medicamentos y lquidos intravenosos que ayud a kelvin sntomas, y bernice dosis de antibiticos. Hicimos bernice tomografa computarizada del abdomen y la pelvis, y un ultrasonido del abdomen, y vimos un quiste ovrico y de la vescula biliar piedras que probablemente no son un problema de emergencia. Despus de nuestra evaluacin, no creemos que tiene bernice urgencia mdica en cirilo momento, y creemos que son seguras para ir a casa. Recoger y won dumont prescripcin de antibiticos que estamos enviando electr nicamente a dumont farmacia. Le damos informacin de la clnica del Dr. Allison, y usted debe llamar el lunes por la maana para hacer bernice emmanuel para venir en el Nicki 08/27/21. Tenga tambin a lo diann de los analgsicos de venta mike para el dolor (kary Tylenol), siguiendo las instrucciones en la etiqueta del medicamento. Por favor, siga con dumont mdico regular en 1-3 cox. Llame a dumont cl kecia de [facility], dgales que fueron vistos en el ER, y decirles que usted necesita bernice emmanuel. Por favor, vuelva a la kelley de urgencias en cualquier momento, las 24 horas del da, para cualquier nueva o empeoramiento de los sntomas, kary el empeoramiento del dolor no se alivian con medicamentos, fiebre, incapacidad para orinar, ardor al orinar u otros sntomas. Si tiene sntomas graves o potencialmente mortales, o los sntomas que lo hacen inseguro para conducir o tener alguien que, por favor, llame al 911. Print Language: SLOVENIAN - Post Discharge Activity
[2017-09-09 10:38] VITALS: BMI 31.6
[2017-09-09 10:45] LABS: URINE APPEARANCE CLOUDY; URINE BILIRUBIN NEGATIVE (<2.0 mg/dL); URINE COLOR RED; URINE GLUCOSE (UA) NEGATIVE (NEGATIVE); URINE KETONE NEGATIVE (NEGATIVE); URINE NITRITE NEGATIVE (NEGATIVE); URINE UROBILINOGEN NEGATIVE mg/dL (0.2-1.0)
[2017-09-09 10:59] LABS: BASO % 0.3 % (0-2.0); EOS % 5.1 % (0-4.5); HEMATOCRIT 38.4 % (32.4-45.2); LYMPH % 9.9 % (8-40); MCH 31.2 pg (25.7-33.7); MCHC 33.7 g/dl (32.0-36.0); MEAN CELL VOLUME 92.5 fl (80-96); MONO % 7.1 % (3.8-10.2); NEUT % 77.6 % (42.8-82.8); PLATELET COUNT 195 K/MM3 (134-434); RBC 4.15 M/mm3 (3.60-5.2); RDW 14.1 % (11.6-15.6); WHITE BLOOD COUNT 11.3 K/mm3 (4.0-10.0)
[2017-09-09 11:04] LABS: INR 1.02 (0.82-1.09); PROTHROMBIN TIME (PATIENT) 11.5 SEC (9.7-13.0)
[2017-09-09 11:06] LABS: ACTIVATED PTT 29.7 SECONDS (26.9-34.4)
[2017-09-09 11:10] LABS: ALBUMIN 3.6 g/dl (3.4-5.0); ANION GAP 6 (8-16); BLOOD UREA NITROGEN 12 mg/dL (7-18); CALCIUM 8.5 mg/dL (8.5-10.1); CHLORIDE 104 mmol/L (98-107); CO2 30 mmol/L (21-32); CREATININE 0.9 mg/dL (0.55-1.02); GLUCOSE,RANDOM 135 mg/dL (74-106); POTASSIUM 3.5 mmol/L (3.5-5.1); SGOT/AST 17 U/L (15-37); SGPT/ALT 16 U/L (12-78); SODIUM 140 mmol/L (136-145)
[2017-09-09 11:12] LABS: ALK PHOS 130 U/L (45-117); BILIRUBIN,TOTAL 0.6 mg/dL (0.2-1.0); TOT PROT 7.1 g/dl (6.4-8.2)
[2017-09-09 11:23] LABS: URINE LEUK ESTERASE 2+ (NEGATIVE); URINE PROTEIN 3+ (NEGATIVE)
[2017-09-09] MEDS ORDERED: ACETAMINOPHEN INJECTION 100 ML IVPB ONE (12:17)
[2017-09-09] MEDS ORDERED: ACETAMINOPHEN 1000 MG/100 ML VIAL (NON FORMULARY) IVPB ONE (12:17)
--- NOTE | 2017-09-09 15:36 | PDOC ---
*Physical Exam - Vital Signs Last Vital Signs Temp Pulse Resp BP Pulse Ox 98.3 F 82 16 125/74 100 09/09/17 09:57 09/09/17 09:57 09/09/17 09:57 09/09/17 09:57 09/09/17 09:57 09/09/17 15:25 This is a 67 YOF h/o dementia who p/w bleeding in her diaper. Urine with hematuria. Suprapubic tenderness on exam. On renal and bladder US the patient had mobile gallstone, as well as biliary ductal dilatation to 7.5 mm diameter. GI was called and stated a lipase should be checked and if normal, she should be appropriate for outpatient f/u as the white count could be attributed to her UTI shown on UA. However the patient may need spiral CT to r/o renal stone. She also will need tx for UTI. ED Treatment Course - LABORATORY CBC & Chemistry Diagram: 09/09/17 10:28 09/09/17 10:28 - ADDITIONAL ORDERS Additional order review: Laboratory Results 09/09/17 09/09/17 09/09/17 10:56 10:40 10:28 PT with INR INR PTT (Actin FS) Sodium Potassium Chloride Carbon Dioxide Anion Gap BUN Creatinine Creat Clearance w eGFR Random Glucose Calcium Total Bilirubin AST ALT Alkaline Phosphatase Total Protein Albumin Urine Color Red Urine Appearance Cloudy Urine pH 7.0 Ur Specific [place] 1.014 Urine Protein 3+ H Urine Glucose (UA) Negative Urine Ketones Negative Urine Blood 3+ H Urine Nitrite Negative Urine Bilirubin Negative Urine Urobilinogen Negative Ur Leukocyte Esterase 2+ H Urine WBC (Auto) 383 Urine RBC (Auto) 5938 Stool Occult Blood Negative Blood Type O POSITIVE Antibody Screen Negative 09/09/17 09/09/17 10:28 10:28 PT with INR 11.50 INR 1.02 PTT (Actin FS) 29.7 Sodium 140 Potassium 3.5 Chloride 104 Carbon Dioxide 30 Anion Gap 6 L BUN 12 Creatinine 0.9 Creat Clearance w eGFR > 60 Random Glucose 135 H Calcium 8.5 Total Bilirubin 0.6 D AST 17 ALT 16 Alkaline Phosphatase 130 H Total Protein 7.1 Albumin 3.6 Urine Color Urine Appearance Urine pH Ur Specific [place] Urine Protein Urine Glucose (UA) Urine Ketones Urine Blood Urine Nitrite Urine Bilirubin Urine Urobilinogen Ur Leukocyte Esterase Urine WBC (Auto) Urine RBC (Auto) Stool Occult Blood Blood Type Antibody Screen 09/09/17 10:28 RBC 4.15 MCV 92.5 MCHC 33.7 RDW 14.1 MPV 10.0 Neutrophils % 77.6 D Lymphocytes % 9.9 D Monocytes % 7.1 Eosinophils % 5.1 H Basophils % 0.3 - Medications Given in the ED: ED Medications Discontinued Medications Generic Name Dose Route Start Last Admin Trade Name Saji PRN Reason Stop Dose Admin Acetaminophen 1,000 mg 09/09/17 12:17 09/09/17 12:22 Ofirmev Injection - IVPB 09/09/17 12:18 1,000 mg ONCE ONE Administration Medical Decision Making - Medical Decision Making 09/09/17 16:[address] Lacy with GI Surgery. 09/09/17 17:[address] Ab/Pel without contrast shows e/o cystitis, ovarian cyst. The patient's repeat abdominal exam is benign. The is comfortable going home with plan to f/u as OP with GI and PCP. First dose of Bactrim is given here in the ED for UTI. 09/09/17 18:[address] Hao Orourke who placed bladder stimulator in 01/2017 in the patient. He states hematuria very unlikely to have been related to bladder stimulator. I look at her H/H trend from her 3 visits this week and there is no significant drop. The patient is appropriately for discharge home with close follow up with Dr. Hao Orourke and PCP. Dr. El. Orourke states he will see her in clinic on Tuesday next week. This is discussed with the patient and the and they will be able to f/u on Tuesday. Return precautions are discussed. E-Rx is sent to their pharmacy for Bactrim. *DC/Admit/Observation/Transfer Diagnosis at time of Disposition: UTI (urinary tract infection) Qualifiers: Urinary tract infection type: site unspecified Hematuria presence: with hematuria Qualified Code(s): N39.0 - Urinary tract infection, site not specified ; R31.9 - Hematuria, unspecified; R31.9 - Hematuria, unspecified Ovarian cyst Qualifiers: Laterality: unspecified laterality Qualified Code(s): N83.209 - Unspecified ovarian cyst, unspecified side Gallstone Qualifiers: Cholecystitis presence: without cholecystitis Biliary obstruction: with biliary obstruction Qualified Code(s): K80.21 - Calculus of gallbladder without cholecystitis with obstruction - Discharge Dispostion Disposition: HOME Condition at time of disposition: Stable Decision to Admit order: No - Prescriptions Prescriptions: Sulfamethoxazole/Trimethoprim [Bactrim Ds -] 1 tab PO TID #12 tablet - Referrals Referrals: Silvino Allison MD [Staff Physician] - - Patient Instructions Printed Discharge Instructions: DI for Urinary Tract Infection (UTI), DI for Hematuria Additional Instructions: You were seen in the ER for a blood in the urine and abdominal pain. We did laboratory tests on your urine and found blood in the urine, as well as a bladder infection. We gave you medications and IV fluids which helped your symptoms, and a dose of antibiotics. We did a CT of the abdomen and pelvis, and an ultrasound of the abdomen, and we saw an ovarian cyst and gallbladder stones which are not likely an emergency problem. After our assessment, we do not believe you are having a medical emergency at this time, and we believe you are safe to go home. operator command support systems and take your prescription for antibiotic that we are sending electronically to your pharmacy. We are giving you information Dr. David Orourke's clinic, and you should call them on Tuesday morning to make an appointment to come in on Tuesday08/27/21. Please also take over the counter pain medications for pain (like Tylenol), following the instructions on the medication label. Please follow up with your regular doctor in 1-3 days. Call their clinic [facility], tell them you were seen in the ER, and tell them you need an appointment. Please come back to the ER at any time, 24 hours a day, for any new or worsening symptoms, like worsening pain unrelieved with medications, fever, inability to urinate, burning on urination, or other symptoms. If you are having severe or life threatening symptoms, or symptoms that make it unsafe to drive or have someone drive you, please call 911. Que fueron vistos en el ER para yesenia en la orina y dolor abdominal. Hicimos pruebas de laboratorio en la orina y encontraron yesenia en la orina, as kary bernice infeccin de la vejiga. Le dimos los medicamentos y lquidos intravenosos que ayud a kelvin sntomas, y bernice dosis de antibiticos. Hicimos bernice tomografa computarizada del abdomen y la pelvis, y un ultrasonido del abdomen, y vimos un quiste ovrico y de la vescula biliar piedras que probablemente no son un problema de emergencia. Despus de nuestra evaluacin, no creemos que tiene bernice urgencia mdica en cirilo momento, y creemos que son seguras para ir a casa. Recoger y won dumont prescripcin de antibiticos que estamos enviando electr nicamente a dumont farmacia. Le damos informacin de la clnica del Dr. Allison, y usted debe llamar el lunes por la maana para hacer bernice emmanuel para venir en el Nicki 08/27/21. Tenga tambin a lo diann de los analgsicos de venta mike para el dolor (kary Tylenol), siguiendo las instrucciones en la etiqueta del medicamento. Por favor, siga con dumont mdico regular en 1-3 cox. Llame a dumont cl kecia de [facility], dgales que fueron vistos en el ER, y decirles que jami necesita bernice emmanuel. Por favor, vuelva a la kelley de urgencias en cualquier momento, las 24 horas del da, para cualquier nueva o empeoramiento de los sntomas, kary el empeoramiento del dolor no se alivian con medicamentos, fiebre, incapacidad para orinar, ardor al orinar u otros sntomas. Si tiene sntomas graves o potencialmente mortales, o los sntomas que lo hacen inseguro para conducir o tener alguien que, por favor, llame al 911. Print Language: TUVALUAN - Post Discharge Activity
--- NOTE | 2017-09-09 16:38 | CONSULT ---
Consult Consult Specialty:: General Surgery Reason for Consultation:: Hematuria and incidental gallstones - History of Present Illness Chief Complaint: unable to elicit from patient due to Dementia, non-verbal at baseline History of Present Illness: Patient's states patient seems to have lower abdominal pain, denies vomiting, soft stools 3-4 times a day, no other GI symptoms, no other known symptoms - History Source History Provided By: Family Member Limitations to Obtaining History: Dementia - Past Medical History BUFFER CHROME: Yes: Alzheimer's Cardio/Vascular: Yes: Hyperlipdemia. No: CHF Pulmonary: Yes: Asthma Renal/: Yes: Hematuria, Neurogenic Bladder, UTI Reproductive: Yes: Postmenopausal - Past Surgical History Additional Surgical History: Neuro bladder stimulator - Alcohol/Substance Use Hx Alcohol Use: No - Smoking History Smoking history: Never smoked Have you smoked in the past 12 months: No - Social History Usual Living Arrangement: With Spouse ADL: Family Assistance Home Medications - Allergies Allergies/Adverse Reactions: Allergies Allergy/AdvReac Type Severity Reaction Status Date / Time ciprofloxacin Allergy Intermediate Rash Verified 09/11/17 09:55 - Home Medications Home Medications: Ambulatory Orders Aspirin [Ecotrin] 81 mg PO DAILY 12/31/14 Atorvastatin Ca [Lipitor] 10 mg PO HS 01/21/17 Oxybutynin Chloride [Oxybutynin Chloride ER] 10 mg PO DAILY 01/21/17 Phenobarbital 32.4 mg PO BID 01/21/17 Cetirizine HCl [Zyrtec -] 10 mg PO DAILY 09/07/17 Escitalopram Oxalate [Lexapro -] 10 mg PO DAILY 09/07/17 Fluticasone Prop 0.05% Nasal [Flonase -] 1 spray NS BID 09/07/17 Folic Acid 1 mg PO DAILY 09/07/17 Memantine HCl/Donepezil HCl [Namzaric 28 mg-10 mg Capsule] 1 each PO DAILY 09/07 Heparin - 5,000 unit SQ BID vial 09/12/17 Pantoprazole Sodium [Protonix -] 40 mg PO DAILY tablet.ec 09/12/17 Family Disease History - Family Disease History Family History: Unable to Obtain Review of Systems Unable to obtain ROS, reason: Dementia, non-verbal at b Findings/Remarks: Obtained by questioning - Review of Systems Constitutional: denies: Fever, Loss of Appetite, Unintentional Wgt. Loss HENT: denies: Difficult Swallowing, Ear Pain Neck: denies: Pain on Movement Cardiovascular: denies: Chest Pain, Shortness of Breath Respiratory: denies: Cough, Hemoptysis Gastrointestinal: reports: Abdominal Pain. denies: Nausea, Vomiting Genitourinary: reports: Hematuria, Vaginal Bleeding Musculoskeletal: denies: Decreased ROM Integumentary: denies: Wound Neurological: reports: Headache Endocrine: denies: Increased Hunger, Unexplained Weight Loss Hematology/Lymphatic: denies: Easily Bruised Physical Exam Vital Signs: Vital Signs Temperature 98.2 F 09/09/17 15:00 Pulse Rate 76 09/09/17 15:00 Respiratory Rate 17 09/09/17 15:00 Blood Pressure 117/60 09/09/17 15:00 O2 Sat by Pulse Oximetry (%) 98 09/09/17 15:00 Constitutional: Yes: Well Nourished, No Distress, Calm Eyes: Yes: Conjunctiva Clear, EOM Intact HENT: Yes: Atraumatic, Normocephalic Neck: Yes: Supple, Trachea Midline Cardiovascular: Yes: Regular Rate and Rhythm Respiratory: Yes: Regular Gastrointestinal: Yes: Normal Bowel Sounds, Soft, Abdomen, Obese, Tenderness, Other (Patient flinches when abdomen palpated, difficult to discern whether tender). No: Hematemesis, Hernia, Melena, Tenderness, Rebound ...Rectal Exam: Yes: Deferred Renal/: Yes: Hematuria, Vaginal Discharge Musculoskeletal: No: Muscle Weakness Extremities: Yes: WNL Integumentary: No: Jaundice, Rash Neurological: Yes: Alert, Other (Responsive, non-verbal) Psychiatric: Yes: Alert. No: Oriented Labs: CBC, BMP 09/09/17 10:28 09/09/17 10:28 Imaging - Results Cat Scan: Pending, Report Reviewed (Marked thickening of the bladder, thick walled cystic structure in right adenexa, approx. 6 cm, no urolithiasis) Ultrasound: Image Reviewed (US revealed a mobile gallstone approx. 2 cm, no gallbladder wall thickening, no pericholecystic fluid, 7.5 mm CDB) Problem List - Problems (1) Cholelithiasis Assessment/Plan: Incidental gallstones, no US evidence cholecystitis, no evidence choledocholithiasis, no evidence obstruction. No need indication for surgical intervention at this time. Follow up with our surgical group prn. Code(s): K80.20 - CALCULUS OF GALLBLADDER W/O CHOLECYSTITIS W/O OBSTRUCTION Qualifiers: Cholelithiasis location: gallbladder Cholecystitis presence: without cholecystitis Biliary obstruction: without biliary obstruction Qualified Code(s): K80.20 - Calculus of gallbladder without cholecystitis without obstruction (2) Abdominal pain Assessment/Plan: Patient difficult to examine, mild diffuse tenderness, no focal tenderness, no rebound. Probably due to UTI. ED to obtain spiral renal CT scan for hematuria. Code(s): R10.9 - UNSPECIFIED ABDOMINAL PAIN Qualifiers: Abdominal location: generalized Qualified Code(s): R10.84 - Generalized abdominal pain (3) UTI (urinary tract infection) Assessment/Plan: Abx as per ED. Follow up with Urology. Code(s): N39.0 - URINARY TRACT INFECTION, SITE NOT SPECIFIED Qualifiers: Urinary tract infection type: site unspecified Hematuria presence: with hematuria Qualified Code(s): N39.0 - Urinary tract infection, site not specified; R31.9 - Hematuria, unspecified; R31.9 - Hematuria, unspecified (4) Dementia Assessment/Plan: Baseline Dementia. No change in mental status according to patient's . Code(s): F03.90 - UNSPECIFIED DEMENTIA WITHOUT BEHAVIORAL DISTURBANCE Qualifiers: Dementia type: Alzheimer's disease Alzheimer's disease onset: unspecified onset Dementia behavioral disturbance: without behavioral disturbance Qualified Code(s): G30.9 - Alzheimer's disease, unspecified; F02.80 - Dementia in other diseases classified elsewhere without behavioral disturbance; F02.80 - Dementia in other diseases classified elsewhere without behavioral disturbance; F02.80 - Dementia in other diseases classified elsewhere without behavioral disturbance Assessment/Plan A/P Patient presents to ED c/o abdominal pain according to , patient is non-verbal at baseline due to severe Dementia. reports no nausea, NO vomiting, constipation, no other GI symptoms. Hematuris found on U/A, otherwise unremarkable. US revealed one mobile gallstone slightly dilated CBD but no evidence cholecystitis. LFT's, Lipase WNL. Abdominal exam difficult to assess due to non-verbal status, no rebound tenderness. It appears to be a case of incidental cholelihiasis. No need for operative intervention. Patient with prior history of UTI's, hematuria. ED to obtain spiral renal scan to look for nephrolithiasis, ureter stones.
[2017-09-09] MEDS ORDERED: SULFAMETHOXAZOLE/TRIMETHOPRIM 800MG/160MG D.S. TABLET PO ONE (17:39)
[2017-09-09] MEDS ORDERED: SULFAMETHOXAZOLE/TRIMETHOPRIM 800MG/160MG D.S. TABLET ONE (17:44)
[2017-09-09 19:18] VITALS: BP 116/72; PULSE 71; TEMP 98.2
--- NOTE | 2017-09-11 07:54 | PDOC ---
Patient Follow-up (Call Back) - Post ED Follow - Up Condition at time of discharge: Stable Disposition at time of original discharge: HOME Reason for Call Back: Abnwl. Microbiology
--- NOTE | 2017-09-11 08:37 | PDOC ---
Patient Follow-up (Call Back) - Post ED Follow - Up Condition at time of discharge: Stable Disposition at time of original discharge: HOME Reason for Call Back: Abnwl. Microbiology - Disposition Additional Instructions/Notes: (+) urine culture - pseudomonas species. Only sensitive to fluoroquinolones and IV meds. Patient is allergic to cipro (develops rash). Will not give Levaquin, as most likely allergic to that as well. Spoke with patient's and he is going to bring the patient to the ER today for IV antibiotics.
== END 2017-09-09 19:00 | disposition home or self-care (01) ==
LOC: JER 09:27
PROC: 3E033NZ Introduction of Analgesics, Hypnotics, Sedatives into Peripheral Vein, Percutaneous Approach (ICD-10-PCS; principal; 2017-09-09)
DX: N39.0 Urinary tract infection, site not specified (principal); N83.209 Unspecified ovarian cyst, unspecified side; K80.80 Other cholelithiasis without obstruction; G30.9 Alzheimer's disease, unspecified; F02.80 Dementia in other diseases classified elsewhere, unspecified severity, without behavioral disturbance, psychotic disturbance, mood disturbance, and anxiety; F05 Delirium due to known physiological condition; I10 Essential (primary) hypertension; E78.5 Hyperlipidemia, unspecified
CPT/HCPCS: 36415; 74176; 76705-TC; 76775-TC; 76830-TC; 80053; 81003; 81015; 82272; 83690; 85025; 85610; 85730; 86850; 86900; 86901; 87086; 87186; 96374; 99283-25; J0131

== ENCOUNTER 2017-09-11 09:45 | Inpatient (IN) | payer MEDICARE, OTHER ==
[2017-09-11] MEDS ORDERED: CEFEPIME HCL/D5W 1 GM/50 ML BAG IVPB ONE (10:42)
--- NOTE | 2017-09-11 10:42 | PDOC ---
History of Present Illness - General Chief Complaint: Revisit, Lab Variance Stated Complaint: REVISIT Time Seen by Provider: 09/11/17 10:08 History Source: Spouse Exam Limitations: Dementia - History of Present Illness Initial Comments: CHIEF COMPLAINT: 67 y/o afebrile female with dementia, HLD, asthma returned to ER for IV antibiotics after urine culture showed pseudomonas infection. HISTORY OF PRESENT ILLNESS: The patient was seen here on 09/09 and was found to have a UTI. She was discharged with an rx for bactrim. The urine culture resulted today and it's a pseudomonas infection. The patient gets a rash when she takes cipro and therefore she cannot have Levaquin. Was called to return to the ER for IV antibiotics. denies fever and hematuria. PMD is Dr. Maya Vital signs on arrival are within normal limits. REVIEW OF SYSTEMS: Provided by . GENERAL/CONSTITUTIONAL: No fever/chills. RESPIRATORY: No cough, hemoptysis. GASTROINTESTINAL: No abdominal pain. No vomiting, diarrhea, constipation, BRPBR , melena, hematemsis. GENITOURINARY: No change in urination. SKIN: No rash or easy bruising. NEUROLOGIC: No LOC PHYSICAL EXAM: GENERAL: The patient is awake, alert, demented. HEAD: Normal with no signs of trauma. ABDOMEN: Soft, non-distended, minimal TTP of suprapubic region, no hepatomegaly or splenomegaly, no masses. EXTREMITIES: Normal range of motion, no edema. NEUROLOGICAL: normal gait. Demented SKIN: Warm, dry, normal turgor, no rashes or lesions noted. Past History - Past Medical History Allergies/Adverse Reactions: Allergies Allergy/AdvReac Type Severity Reaction Status Date / Time ciprofloxacin Allergy Intermediate Rash Verified 09/11/17 09:55 Home Medications: Ambulatory Orders Aspirin [Ecotrin] 81 mg PO DAILY 12/31/14 Atorvastatin Ca [Lipitor] 10 mg PO HS 01/21/17 Oxybutynin Chloride [Oxybutynin Chloride ER] 10 mg PO DAILY 01/21/17 Phenobarbital 32.4 mg PO BID 01/21/17 Albuterol Sulfate Inhaler - [Ventolin Hfa Inhaler -] 1 - 2 inh PO Q4H PRN Cetirizine HCl [Zyrtec -] 10 mg PO DAILY 09/07/17 Escitalopram Oxalate [Lexapro -] 10 mg PO DAILY 09/07/17 Fluticasone Prop 0.05% Nasal [Flonase -] 1 spray NS BID 09/07/17 Folic Acid 1 mg PO DAILY 09/07/17 Memantine HCl/Donepezil HCl [Namzaric 28 mg-10 mg Capsule] 1 each PO DAILY 09/07 Sulfamethoxazole/Trimethoprim [Bactrim Ds -] 1 tab PO TID #12 tablet 09/09/17 Asthma: Yes COPD: No Dementia: Yes (alzehimers.) Disorders: Yes (HEMATURIA, incontinency) HTN: Yes Hypercholesterolemia: Yes Seizures: Yes - Suicide/Smoking/Psychosocial Hx Smoking History: Never smoked Have you smoked in the past 12 months: No Hx Alcohol Use: No Drug/Substance Use Hx: No Substance Use Type: None Hx Substance Use Treatment: No *Physical Exam - Vital Signs Last Vital Signs Temp Pulse Resp BP Pulse Ox 98 F 75 18 136/56 99 09/11/17 09:52 09/11/17 09:52 09/11/17 09:52 09/11/17 09:52 09/11/17 09:52 Medical Decision Making - Medical Decision Making A/P: 67 y/o female here for IV abx for treatment of a pseudomonal UTI. Plan is as follows: 1. basic labs 2. blood cultures 3. IV cefepime Called Dr. Maya for admission. Spoke with Dr. Young, iron worker foreman for Dr. Maya, and he accepts admission Family made aware. *DC/Admit/Observation/Transfer Diagnosis at time of Disposition: UTI (urinary tract infection) - Discharge Dispostion Condition at time of disposition: Stable Decision to Admit order: Yes - Referrals Referrals: Israel Maya MD [Primary Care Provider] - - Patient Instructions - Post Discharge Activity
[2017-09-11 11:23] LABS: BASO % 0.5 % (0-2.0); EOS % 10.5 % (0-4.5); HEMATOCRIT 36.7 % (32.4-45.2); MCH 30.3 pg (25.7-33.7); MCHC 32.7 g/dl (32.0-36.0); MEAN CELL VOLUME 92.6 fl (80-96); MEAN PLT VOLUME 9.6 fl (7.5-11.1); MONO % 12.4 % (3.8-10.2); NEUT % 58.6 % (42.8-82.8); PLATELET COUNT 198 K/MM3 (134-434); RBC 3.96 M/mm3 (3.60-5.2); RDW 14.1 % (11.6-15.6); WHITE BLOOD COUNT 8.1 K/mm3 (4.0-10.0)
[2017-09-11] MEDS ORDERED: CEFEPIME 1 GM/100 ML BAG IVPB ONE (11:25)
[2017-09-11 11:47] LABS: ALBUMIN 3.3 g/dl (3.4-5.0); ALK PHOS 101 U/L (45-117); ANION GAP 7 (8-16); BILIRUBIN,TOTAL 0.2 mg/dL (0.2-1.0); BLOOD UREA NITROGEN 14 mg/dL (7-18); CALCIUM 8.4 mg/dL (8.5-10.1); CHLORIDE 105 mmol/L (98-107); CO2 30 mmol/L (21-32); GLUCOSE,RANDOM 86 mg/dL (74-106); POTASSIUM 3.6 mmol/L (3.5-5.1); SGOT/AST 13 U/L (15-37); SGPT/ALT 14 U/L (12-78); SODIUM 142 mmol/L (136-145); TOT PROT 6.8 g/dl (6.4-8.2)
[2017-09-11] MEDS ORDERED: CEFEPIME HCL/D5W 1 GM/50 ML BAG IVPB SCH (18:00)
[2017-09-11] MEDS: CEFEPIME HCL/D5W 1 GM/50 ML BAG IVPB SCH (18:00)
[2017-09-11 18:28] VITALS: BMI 31.1
[2017-09-11] MEDS ORDERED: PT OWN MED DRAWER 7, Y5N ONE (21:23)
[2017-09-11] MEDS: PHENobarbital 30 MG TABLET PO SCH (21:25)
[2017-09-11] MEDS: ATORVASTATIN CA 10 MG TABLET (FP) PO SCH (21:25)
[2017-09-11] MEDS: HEPARIN NA (PORCINE) 5,000 UNITS/ML 1ML VIAL SQ SCH (21:25)
[2017-09-11] MEDS: FLUTICASONE PROP 0.05% 16 GM NASAL SPRAY NS SCH (22:28)
[2017-09-12] MEDS: CEFEPIME HCL/D5W 1 GM/50 ML BAG IVPB SCH (01:46)
[2017-09-12 08:37] LABS: BASO % 0.5 % (0-2.0); EOS % 17.2 % (0-4.5); HEMATOCRIT 34.7 % (32.4-45.2); HEMOGLOBIN 11.5 GM/dL (10.7-15.3); LYMPH % 19.7 % (8-40); MCH 30.5 pg (25.7-33.7); MCHC 33.1 g/dl (32.0-36.0); MONO % 8.7 % (3.8-10.2); NEUT % 53.9 % (42.8-82.8); PLATELET COUNT 193 K/MM3 (134-434); RBC 3.77 M/mm3 (3.60-5.2); RDW 14.1 % (11.6-15.6); WHITE BLOOD COUNT 6.6 K/mm3 (4.0-10.0)
[2017-09-12 09:07] LABS: CHLORIDE 108 mmol/L (98-107); POTASSIUM 3.7 mmol/L (3.5-5.1); SODIUM 143 mmol/L (136-145)
[2017-09-12 09:14] LABS: ALBUMIN 3.1 g/dl (3.4-5.0); ALK PHOS 91 U/L (45-117); ANION GAP 7 (8-16); BILIRUBIN,TOTAL 0.2 mg/dL (0.2-1.0); BLOOD UREA NITROGEN 16 mg/dL (7-18); CALCIUM 8.3 mg/dL (8.5-10.1); CO2 28 mmol/L (21-32); CREATININE 0.7 mg/dL (0.55-1.02); GLUCOSE,RANDOM 94 mg/dL (74-106); SGOT/AST 15 U/L (15-37); SGPT/ALT 11 U/L (12-78); TOT PROT 6.4 g/dl (6.4-8.2)
--- NOTE | 2017-09-12 09:48 | CON.ID ---
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 No: CHF Pulmonary: Yes: Asthma Renal/: Yes: Hematuria, Neurogenic Bladder, UTI - Alcohol/Substance Use Hx Alcohol Use: No - Smoking History Smoking history: Never smoked Have you smoked in the past 12 months: No - Social History Usual Living Arrangement: With Spouse ADL: Support Services History of Recent Travel: No Home Medications - Allergies Allergies/Adverse Reactions: Allergies Allergy/AdvReac Type Severity Reaction Status Date / Time ciprofloxacin Allergy Intermediate Rash Verified 09/11/17 09:55 - Home Medications Home Medications: Ambulatory Orders Aspirin [Ecotrin] 81 mg PO DAILY 12/31/14 Atorvastatin Ca [Lipitor] 10 mg PO HS 01/21/17 Oxybutynin Chloride [Oxybutynin Chloride ER] 10 mg PO DAILY 01/21/17 Phenobarbital 32.4 mg PO BID 01/21/17 Albuterol Sulfate Inhaler - [Ventolin Hfa Inhaler -] 1 - 2 inh PO Q4H PRN Cetirizine HCl [Zyrtec -] 10 mg PO DAILY 09/07/17 Escitalopram Oxalate [Lexapro -] 10 mg PO DAILY 09/07/17 Fluticasone Prop 0.05% Nasal [Flonase -] 1 spray NS BID 09/07/17 Folic Acid 1 mg PO DAILY 09/07/17 Memantine HCl/Donepezil HCl [Namzaric 28 mg-10 mg Capsule] 1 each PO DAILY 09/07 Sulfamethoxazole/Trimethoprim [Bactrim Ds -] 1 tab PO TID #12 tablet 09/09/17 Family Disease History - Family Disease History Family History: Unable to Obtain Review of Systems - Review of Systems Constitutional: reports: No Symptoms. denies: Chills, Diaphoresis, Fever Physical Exam Vital Signs: Vital Signs Temperature 98.3 F 09/12/17 08:39 Pulse Rate 80 09/12/17 08:39 Respiratory Rate 20 09/12/17 08:39 Blood Pressure 107/56 09/12/17 08:39 O2 Sat by Pulse Oximetry (%) 98 09/11/17 21:00 Constitutional: Yes: Well Nourished, No Distress, Calm Eyes: Yes: WNL, Conjunctiva Clear HENT: Yes: Atraumatic, Normocephalic Neck: Yes: WNL, Supple, Trachea Midline. No: Lymphadenopathy Cardiovascular: Yes: Regular Rate and Rhythm. No: Murmur Respiratory: Yes: Regular, CTA Bilaterally Gastrointestinal: Yes: Normal Bowel Sounds, Soft. No: Tenderness, Tenderness, Epigastrium ...Rectal Exam: Yes: Deferred Renal/: No: CVA Tenderness - Left, CVA Tenderness - Right, Pozo Present Extremities: Yes: WNL Edema: No Peripheral Pulses WNL: No Neurological: Yes: Alert, Oriented ...Motor Strength: WNL Psychiatric: Yes: Alert, Oriented Labs: CBC, BMP 09/12/17 07:45 09/12/17 07:45 Imaging - Results Cat Scan: Report Reviewed Problem List - Problems (1) UTI (urinary tract infection) Code(s): N39.0 - URINARY TRACT INFECTION, SITE NOT SPECIFIED Qualifiers: (2) Hematuria Code(s): R31.9 - HEMATURIA, UNSPECIFIED (3) Dementia Code(s): F03.90 - UNSPECIFIED DEMENTIA WITHOUT BEHAVIORAL DISTURBANCE Qualifiers: Dementia type: Alzheimer's disease Alzheimer's disease onset: unspecified onset Dementia behavioral disturbance: without behavioral disturbance Qualified Code(s): G30.9 - Alzheimer's disease, unspecified; F02.80 - Dementia in other diseases classified elsewhere without behavioral disturbance; F02.80 - Dementia in other diseases classified elsewhere without behavioral disturbance; F02.80 - Dementia in other diseases classified elsewhere without behavioral disturbance (4) Ciprofloxacin adverse reaction Code(s): T36.8X5A - ADVERSE EFFECT OF OTHER SYSTEMIC ANTIBIOTICS, INIT ENCNTR Assessment/Plan pseudomonas UTi hematuria cipro allergy dementia continue ceftaz consider GYNE evaluation
[2017-09-12] MEDS ORDERED: PATIENT'S OWN MEDICATION (NON-FORMULARY) (Memantine Hcl/Donepezil Hcl [Namzaric 28 Mg-10 M PO SCH (10:00)
--- NOTE | 2017-09-12 10:41 | HP ---
Admitting History and Physical - Primary Care Physician PCP: Demetrius Young - Admission Chief Complaint: Complicated UTI History of Present Illness: Ms Avila, pleasantly confused 67 yo female came through [facility] er for complicated UTI. She came in to ER originally on 09/09/17 with complaints of abdominal pain and red tinged urine on her diaper. Upon evaluation she was found to have cholelithiasis and cystitis. Surgery was consulted for cholelithiasis to r/o cholecyctitis. There were no acute findings and the abdominal pain was not r/t cholelithiasis. Her UC from 09/09/17 grew Pseudomonas aerugenosa, so her , who is the primary managed care specialist was called in to come back to ER for IV abx as patient is allergic to fluoroquinolones. 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 No: CHF Pulmonary: Yes: Asthma Renal/: Yes: Hematuria, Neurogenic Bladder, UTI - Smoking History Smoking history: Never smoked Have you smoked in the past 12 months: No - Alcohol/Substance Use Hx Alcohol Use: No - Social History ADL: Support Services History of Recent Travel: No Home Medications - Allergies Allergies/Adverse Reactions: Allergies Allergy/AdvReac Type Severity Reaction Status Date / Time ciprofloxacin Allergy Intermediate Rash Verified 09/11/17 09:55 - Home Medications Home Medications: Ambulatory Orders Aspirin [Ecotrin] 81 mg PO DAILY 12/31/14 Atorvastatin Ca [Lipitor] 10 mg PO HS 01/21/17 Oxybutynin Chloride [Oxybutynin Chloride ER] 10 mg PO DAILY 01/21/17 Phenobarbital 32.4 mg PO BID 01/21/17 Albuterol Sulfate Inhaler - [Ventolin Hfa Inhaler -] 1 - 2 inh PO Q4H PRN Cetirizine HCl [Zyrtec -] 10 mg PO DAILY 09/07/17 Escitalopram Oxalate [Lexapro -] 10 mg PO DAILY 09/07/17 Fluticasone Prop 0.05% Nasal [Flonase -] 1 spray NS BID 09/07/17 Folic Acid 1 mg PO DAILY 09/07/17 Memantine HCl/Donepezil HCl [Namzaric 28 mg-10 mg Capsule] 1 each PO DAILY 09/07 Sulfamethoxazole/Trimethoprim [Bactrim Ds -] 1 tab PO TID #12 tablet 09/09/17 Review of Systems - Review of Systems Constitutional: reports: No Symptoms Eyes: reports: No Symptoms HENT: reports: No Symptoms Neck: reports: No Symptoms Cardiovascular: reports: No Symptoms Respiratory: reports: No Symptoms Gastrointestinal: reports: No Symptoms Genitourinary: reports: No Symptoms Breasts: reports: No Symptoms Reported Musculoskeletal: reports: No Symptoms Integumentary: reports: No Symptoms Neurological: reports: No Symptoms Endocrine: reports: No Symptoms Hematology/Lymphatic: reports: No Symptoms Psychiatric: reports: No Symptoms Physical Examination Vital Signs: Vital Signs Temperature 98.3 F 09/12/17 08:39 Pulse Rate 80 09/12/17 08:39 Respiratory Rate 20 09/12/17 08:39 Blood Pressure 107/56 09/12/17 08:39 O2 Sat by Pulse Oximetry (%) 98 09/11/17 21:00 Constitutional: Yes: Well Nourished, No Distress, Calm Cardiovascular: Yes: Regular Rate and Rhythm Respiratory: Yes: Regular Gastrointestinal: Yes: Normal Bowel Sounds, Soft Musculoskeletal: Yes: Muscle Weakness Extremities: Yes: WNL Edema: No Peripheral Pulses WNL: Yes Neurological: Yes: Alert, Pre-Existing Deficit Psychiatric: Yes: Alert Labs: CBC, BMP 09/12/17 07:45 09/12/17 07:45 Imaging - Results Ultrasound: Report Reviewed Problem List - Problems (1) UTI (urinary tract infection) Assessment/Plan: -UC positive for pseudomonas aerugenosa -ID consult -IV abx-Ceftazidime -U/S transvaginal shows thickened endometrium abnormal for age/postmenopausal state -add Ca 125 -BREAD ICER consult to r/o any BREAD ICER pathology Code(s): N39.0 - URINARY TRACT INFECTION, SITE NOT SPECIFIED Qualifiers: (2) Abdominal pain Assessment/Plan: -resolved -likely secondary to Cystitis showed on pelvic/bladder U/S Code(s): R10.9 - UNSPECIFIED ABDOMINAL PAIN Qualifiers: Abdominal location: generalized Qualified Code(s): R10.84 - Generalized abdominal pain (3) Weakness Assessment/Plan: -Physical therapy -Spoke to , he is okay with patient going to rehab if needed, await PT evaluation Code(s): R53.1 - WEAKNESS (4) Dementia Code(s): F03.90 - UNSPECIFIED DEMENTIA WITHOUT BEHAVIORAL DISTURBANCE Qualifiers: Dementia type: Alzheimer's disease Alzheimer's disease onset: unspecified onset Dementia behavioral disturbance: without behavioral disturbance Qualified Code(s): G30.9 - Alzheimer's disease, unspecified; F02.80 - Dementia in other diseases classified elsewhere without behavioral disturbance; F02.80 - Dementia in other diseases classified elsewhere without behavioral disturbance; F02.80 - Dementia in other diseases classified elsewhere without behavioral disturbance Assessment/Plan see problem list DVT/GI prophylaxis
[2017-09-12] MEDS: HEPARIN NA (PORCINE) 5,000 UNITS/ML 1ML VIAL SQ SCH ×2 (11:02→21:29)
[2017-09-12] MEDS: PHENobarbital 30 MG TABLET PO SCH ×2 (11:04→21:30)
[2017-09-12] MEDS: FOLIC ACID 1 MG TABLET (FP) PO SCH (11:04)
[2017-09-12] MEDS: ESCITALOPRAM OXALATE 10 MG TABLET (FP) PO SCH (11:05)
[2017-09-12] MEDS: ASPIRIN COATED 81 MG TABLET.EC PO SCH (11:05)
[2017-09-12] MEDS: SOLIFENACIN SUCCINATE 5 MG TAB (FP) PO SCH (11:05)
[2017-09-12] MEDS ORDERED: PT OWN MED DRAWER 7, Y5N ONE ×4 (11:09→21:32)
[2017-09-12] MEDS: FLUTICASONE PROP 0.05% 16 GM NASAL SPRAY NS SCH ×2 (11:12→21:32)
--- NOTE | 2017-09-12 11:31 | CON.OBG ---
Consult Consult Specialty:: Gynecology Reason for Consultation:: POstmenospausal bleeding - History of Present Illness Chief Complaint: Postmenopausal bleeding History of Present Illness: 67 yo female from [facility] er treated for complicated UTI. She came in to ER originally on 09/09/17 with complaints of abdominal pain and red tinged urine on her diaper.Also has cholelithiasis and cystitis. Surgery was consulted for cholelithiasis to r/o cholecyctitis. T UC from 09/09/17 grew Pseudomonas aerugenosa. 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 No: CHF Pulmonary: Yes: Asthma Renal/: Yes: Hematuria, Neurogenic Bladder, UTI ...: No - Alcohol/Substance Use Hx Alcohol Use: No History of Substance Use: reports: None - Smoking History Smoking history: Never smoked Have you smoked in the past 12 months: No - Social History Usual Living Arrangement: With Spouse ADL: Support Services History of Recent Travel: No Home Medications - Allergies Allergies/Adverse Reactions: Allergies Allergy/AdvReac Type Severity Reaction Status Date / Time ciprofloxacin Allergy Intermediate Rash Verified 09/11/17 09:55 - Home Medications Home Medications: Ambulatory Orders Aspirin [Ecotrin] 81 mg PO DAILY 12/31/14 Atorvastatin Ca [Lipitor] 10 mg PO HS 01/21/17 Oxybutynin Chloride [Oxybutynin Chloride ER] 10 mg PO DAILY 01/21/17 Phenobarbital 32.4 mg PO BID 01/21/17 Albuterol Sulfate Inhaler - [Ventolin Hfa Inhaler -] 1 - 2 inh PO Q4H PRN Cetirizine HCl [Zyrtec -] 10 mg PO DAILY 09/07/17 Escitalopram Oxalate [Lexapro -] 10 mg PO DAILY 09/07/17 Fluticasone Prop 0.05% Nasal [Flonase -] 1 spray NS BID 09/07/17 Folic Acid 1 mg PO DAILY 09/07/17 Memantine HCl/Donepezil HCl [Namzaric 28 mg-10 mg Capsule] 1 each PO DAILY 09/07 Sulfamethoxazole/Trimethoprim [Bactrim Ds -] 1 tab PO TID #12 tablet 09/09/17 Review of Systems - Review of Systems Genitourinary: reports: Vaginal Bleeding Physical Exam-INTERMEDIATE FRAME TENDER Vital Signs: Vital Signs Temperature 98.3 F 09/12/17 08:39 Pulse Rate 80 09/12/17 08:39 Respiratory Rate 20 09/12/17 08:39 Blood Pressure 107/56 09/12/17 08:39 O2 Sat by Pulse Oximetry (%) 98 09/11/17 21:00 Constitutional: Yes: Well Nourished, No Distress, Calm HENT: Yes: WNL Gastrointestinal: Yes: WNL, Soft, Abdomen, Obese External Genitalia: Yes: Normal Cervix: Yes: Normal Uterus: Yes: Normal Edema: No Labs: CBC, BMP 09/12/17 07:45 09/12/17 07:45 Problem List - Problems (1) Postmenopausal bleeding Code(s): N95.0 - POSTMENOPAUSAL BLEEDING (2) UTI (urinary tract infection) Code(s): N39.0 - URINARY TRACT INFECTION, SITE NOT SPECIFIED Qualifiers: Assessment/Plan Usg normal for age - no endometrial thicking at 7mm postmenopasual bleeding prob secondary to urethra bleeding due to UTI Plan refer if needed for pap smear as outpatient
[2017-09-12] MEDS: CEFTAZIDIME PENTAHYDRATE 1 GM in DEXTROSE 5%-WATER - 50 ML IVPB SCH ×2 (12:49→17:26)
[2017-09-12] MEDS ORDERED: ALBUTEROL SO4 18 GM HFA INHALER IH PRN (18:54)
[2017-09-12] MEDS: ATORVASTATIN CA 10 MG TABLET (FP) PO SCH (21:29)
[2017-09-13] MEDS: CEFTAZIDIME PENTAHYDRATE 1 GM in DEXTROSE 5%-WATER - 50 ML IVPB SCH ×3 (02:00→21:01)
--- NOTE | 2017-09-13 10:27 | DS ---
Physical Examination Vital Signs: Vital Signs Temperature 98.4 F 09/13/17 07:35 Pulse Rate 75 09/13/17 07:35 Respiratory Rate 18 09/13/17 07:35 Blood Pressure 122/56 09/13/17 07:35 O2 Sat by Pulse Oximetry (%) 98 09/12/17 21:00 Findings/Remarks: Walked with PT withclose contact of 1 Needs Fortaz 1 GM BID IV x 10 days for complicated UTI, Cystitis Constitutional: Yes: Well Nourished, No Distress, Calm HENT: Yes: Atraumatic Cardiovascular: Yes: Regular Rate and Rhythm Respiratory: Yes: Regular Gastrointestinal: Yes: Normal Bowel Sounds, Soft Musculoskeletal: Yes: Muscle Weakness Extremities: Yes: WNL Edema: No Peripheral Pulses WNL: Yes Neurological: Yes: Alert, Pre-Existing Deficit Labs: CBC, BMP 09/12/17 07:45 09/12/17 07:45 Discharge Summary Reason For Visit: UTI Current Active Problems Ciprofloxacin adverse reaction (Acute) Postmenopausal bleeding (Acute) UTI (urinary tract infection) (Acute) Weakness (Acute) Hospital Course: Ms Avila, pleasantly confused 67 yo female came through [facility] er for complicated UTI. She came in to ER originally on 09/09/17 with complaints of abdominal pain and red tinged urine on her diaper. Upon evaluation she was found to have cholelithiasis and cystitis. Surgery was consulted for cholelithiasis to r/o cholecyctitis. There were no acute findings and the abdominal pain was not r/t cholelithiasis. Her UC from 09/09/17 grew Pseudomonas aerugenosa, so her , who is the primary home care rn was called in to come back to ER for IV abx as patient is allergic to fluoroquinolones. Also, at bedside today states that he has not seen any more blood or blood Condition: Stable - Instructions Referrals: Israel Maya MD [Primary Care Provider] - Disposition: SNF FACILITY - Home Medications Comprehensive Discharge Medication List: Ambulatory Orders Aspirin [Ecotrin] 81 mg PO DAILY 12/31/14 Atorvastatin Ca [Lipitor] 10 mg PO HS 01/21/17 Oxybutynin Chloride [Oxybutynin Chloride ER] 10 mg PO DAILY 01/21/17 Phenobarbital 32.4 mg PO BID 01/21/17 Cetirizine HCl [Zyrtec -] 10 mg PO DAILY 09/07/17 Escitalopram Oxalate [Lexapro -] 10 mg PO DAILY 09/07/17 Fluticasone Prop 0.05% Nasal [Flonase -] 1 spray NS BID 09/07/17 Folic Acid 1 mg PO DAILY 09/07/17 Memantine HCl/Donepezil HCl [Namzaric 28 mg-10 mg Capsule] 1 each PO DAILY 09/07 Heparin - 5,000 unit SQ BID vial 09/12/17 Pantoprazole Sodium [Protonix -] 40 mg PO DAILY tablet.ec 09/12/17
[2017-09-13] MEDS ORDERED: PT OWN MED DRAWER 7, Y5N ONE (10:44)
[2017-09-13] MEDS: ASPIRIN COATED 81 MG TABLET.EC PO SCH (11:06)
[2017-09-13] MEDS: HEPARIN NA (PORCINE) 5,000 UNITS/ML 1ML VIAL SQ SCH ×2 (11:07→21:05)
[2017-09-13] MEDS: SOLIFENACIN SUCCINATE 5 MG TAB (FP) PO SCH (11:08)
[2017-09-13] MEDS: ESCITALOPRAM OXALATE 10 MG TABLET (FP) PO SCH (11:08)
[2017-09-13] MEDS: PHENobarbital 30 MG TABLET PO SCH ×2 (11:08→21:05)
[2017-09-13] MEDS: FOLIC ACID 1 MG TABLET (FP) PO SCH (11:08)
[2017-09-13] MEDS: PANTOPRAZOLE 40 MG TABLET (FP) PO SCH (11:08)
[2017-09-13] MEDS: FLUTICASONE PROP 0.05% 16 GM NASAL SPRAY NS SCH ×2 (11:12→21:01)
[2017-09-13] MEDS: ALBUTEROL SO4 2.5/IPRATROPIUM 0.5 INH SOL 3 ML VIAL.NEB. NEB PRN (12:40)
--- NOTE | 2017-09-13 15:31 | PN ---
Progress Note (short form) - Note Progress Note: d/w PMD (jeannette Patel) earlier today no more hematuria seen by gyne Vital Signs Period Temp Pulse Resp BP Sys/[place] Pulse Ox Last 24 Hr 97.5 F-98.4 F 75-86 18-20 102-132/47-68 94-98 cor-rrr lungs clear abd soft,nt ext no edema CBC, BMP 09/12/17 07:45 09/12/17 07:45 Microbiology 09/11/17 11:00 Blood - Peripheral Venous Blood Culture - Preliminary NO GROWTH OBTAINED AFTER 48 HOURS, INCUBATION TO CONTINUE FOR 3 DAYS. 09/11/17 11:00 Blood - Peripheral Venous Blood Culture - Preliminary NO GROWTH OBTAINED AFTER 48 HOURS, INCUBATION TO CONTINUE FOR 3 DAYS. a/p pseudomonas UTI day #2 fortaz plan 10 days total for picc line please call back if needed Problem List - Problems (1) UTI (urinary tract infection) Code(s): N39.0 - URINARY TRACT INFECTION, SITE NOT SPECIFIED Qualifiers: Urinary tract infection type: site unspecified Hematuria presence: with hematuria Qualified Code(s): N39.0 - Urinary tract infection, site not specified; R31.9 - Hematuria, unspecified; R31.9 - Hematuria, unspecified (2) Hematuria Code(s): R31.9 - HEMATURIA, UNSPECIFIED (3) Dementia Code(s): F03.90 - UNSPECIFIED DEMENTIA WITHOUT BEHAVIORAL DISTURBANCE Qualifiers: Dementia type: Alzheimer's disease Alzheimer's disease onset: unspecified onset Dementia behavioral disturbance: without behavioral disturbance Qualified Code(s): G30.9 - Alzheimer's disease, unspecified; F02.80 - Dementia in other diseases classified elsewhere without behavioral disturbance; F02.80 - Dementia in other diseases classified elsewhere without behavioral disturbance; F02.80 - Dementia in other diseases classified elsewhere without behavioral disturbance (4) Ciprofloxacin adverse reaction Code(s): T36.8X5A - ADVERSE EFFECT OF OTHER SYSTEMIC ANTIBIOTICS, INIT ENCNTR
[2017-09-13] MEDS ORDERED: CEFTAZIDIME PENTAHYDRATE 1 GM in DEXTROSE 5%-WATER - 50 ML IVPB SCH (16:00)
[2017-09-13] MEDS ORDERED: MELATONIN 5 MG TABLETS PO ONE (20:47)
[2017-09-13] MEDS: ATORVASTATIN CA 10 MG TABLET (FP) PO SCH (21:02)
[2017-09-13] MEDS ORDERED: cefTAZidime PENTAHYDRATE 1 GM/50ML PRE-DOCKED (RESTRICTED TO ID) IVPB SCH (22:00)
--- NOTE | 2017-09-14 10:58 | PN ---
Progress Note, Physician Chief Complaint: UTI History of Present Illness: NAD Seen by ID Awaiting authorization from insurance for ADIRA, in agreement and then PICC line - Current Medication List Current Medications: Active Medications Albuterol/Ipratropium (Duoneb -) 1 amp NEB Q6H PRN PRN Reason: SHORTNESS OF BREATH Last Admin: 09/13/17 12:40 Dose: 1 amp Aspirin (Ecotrin -) 81 mg PO DAILY [facility] Last Admin: 09/13/17 11:06 Dose: 81 mg Atorvastatin Calcium (Lipitor -) 10 mg PO HS [facility] Last Admin: 09/13/17 21:02 Dose: 10 mg Escitalopram Oxalate (Lexapro -) 10 mg PO DAILY [facility] Last Admin: 09/13/17 11:08 Dose: 10 mg Fluticasone Propionate (Flonase -) 1 spray NS BID [facility] Last Admin: 09/13/17 21:01 Dose: 1 spray Folic Acid (Folic Acid -) 1 mg PO DAILY [facility] Last Admin: 09/13/17 11:08 Dose: 1 mg Heparin Sodium (Porcine) (Heparin -) 5,000 unit SQ BID [facility] Last Admin: 09/13/17 21:05 Dose: 5,000 unit Ceftazidime 1 gm/ Dextrose 50 mls @ 100 mls/hr IVPB BID [facility] Last Admin: 09/13/17 21:01 Dose: 100 mls/hr Non-Formulary Medication (Memantine Hcl/Donepezil Hcl [Namzaric 28 Mg-10 Mg Capsule]) 1 each PO DAILY [facility] Pantoprazole Sodium (Protonix -) 40 mg PO DAILY [facility] Last Admin: 09/13/17 11:08 Dose: 40 mg Phenobarbital (Phenobarbital -) 30 mg PO BID [facility] Last Admin: 09/13/17 21:05 Dose: 30 mg Solifenacin (Vesicare -) 5 mg PO DAILY [facility] Last Admin: 09/13/17 11:08 Dose: 5 mg - Objective Vital Signs: Vital Signs Temperature 98.5 F 09/14/17 06:55 Pulse Rate 74 09/14/17 06:55 Respiratory Rate 20 09/14/17 06:55 Blood Pressure 126/70 09/14/17 06:55 O2 Sat by Pulse Oximetry (%) 95 09/13/17 21:00 Constitutional: Yes: Well Nourished, No Distress, Calm Cardiovascular: Yes: Regular Rate and Rhythm Respiratory: Yes: Regular Gastrointestinal: Yes: Normal Bowel Sounds, Soft Musculoskeletal: Yes: WNL Extremities: Yes: WNL Edema: No Peripheral Pulses WNL: Yes Neurological: Yes: Alert, Oriented Psychiatric: Yes: Alert, Oriented Labs: CBC, BMP 09/12/17 07:45 09/12/17 07:45 Problem List - Problems (1) UTI (urinary tract infection) Assessment/Plan: -UC positive for pseudomonas aerugenosa -ID consult -IV abx-Ceftazidime, needs 10 days in total of abx -will go to SNF, awaiting auth from insurance and then PICC line Code(s): N39.0 - URINARY TRACT INFECTION, SITE NOT SPECIFIED Qualifiers: Urinary tract infection type: site unspecified Hematuria presence: with hematuria Qualified Code(s): N39.0 - Urinary tract infection, site not specified; R31.9 - Hematuria, unspecified; R31.9 - Hematuria, unspecified (2) Abdominal pain Assessment/Plan: -resolved -likely secondary to Cystitis showed on pelvic/bladder U/S Code(s): R10.9 - UNSPECIFIED ABDOMINAL PAIN Qualifiers: Abdominal location: generalized Qualified Code(s): R10.84 - Generalized abdominal pain (3) Weakness Assessment/Plan: -Physical therapy -Spoke to , he is okay with patient going to rehab [facility] Code(s): R53.1 - WEAKNESS (4) Dementia Code(s): F03.90 - UNSPECIFIED DEMENTIA WITHOUT BEHAVIORAL DISTURBANCE Qualifiers: Dementia type: Alzheimer's disease Alzheimer's disease onset: unspecified onset Dementia behavioral disturbance: without behavioral disturbance Qualified Code(s): G30.9 - Alzheimer's disease, unspecified; F02.80 - Dementia in other diseases classified elsewhere without behavioral disturbance; F02.80 - Dementia in other diseases classified elsewhere without behavioral disturbance; F02.80 - Dementia in other diseases classified elsewhere without behavioral disturbance Assessment/Plan see problem list DVT/GI prophylaxis
[2017-09-14] MEDS ORDERED: PT OWN MED DRAWER 7, Y5N ONE (11:08)
[2017-09-14] MEDS: HEPARIN NA (PORCINE) 5,000 UNITS/ML 1ML VIAL SQ SCH ×2 (11:11→21:38)
[2017-09-14] MEDS: FOLIC ACID 1 MG TABLET (FP) PO SCH (11:11)
[2017-09-14] MEDS: PANTOPRAZOLE 40 MG TABLET (FP) PO SCH ×2 (11:11→11:12)
[2017-09-14] MEDS: SOLIFENACIN SUCCINATE 5 MG TAB (FP) PO SCH (11:11)
[2017-09-14] MEDS: ESCITALOPRAM OXALATE 10 MG TABLET (FP) PO SCH (11:11)
[2017-09-14] MEDS: ASPIRIN COATED 81 MG TABLET.EC PO SCH (11:11)
[2017-09-14] MEDS: PHENobarbital 30 MG TABLET PO SCH ×2 (11:11→21:39)
[2017-09-14] MEDS: FLUTICASONE PROP 0.05% 16 GM NASAL SPRAY NS SCH ×2 (11:12→21:39)
[2017-09-14] MEDS: CEFTAZIDIME PENTAHYDRATE 1 GM in DEXTROSE 5%-WATER - 50 ML IVPB SCH ×2 (11:12→21:39)
[2017-09-14] MEDS: ALBUTEROL SO4 2.5/IPRATROPIUM 0.5 INH SOL 3 ML VIAL.NEB. NEB PRN (11:18)
[2017-09-14] MEDS: ATORVASTATIN CA 10 MG TABLET (FP) PO SCH (21:38)
--- NOTE | 2017-09-15 07:45 | DS ---
Physical Examination Vital Signs: Vital Signs Temperature 98.2 F 09/15/17 05:36 Pulse Rate 60 09/15/17 05:36 Respiratory Rate 18 09/15/17 05:36 Blood Pressure 133/73 09/15/17 05:36 O2 Sat by Pulse Oximetry (%) 95 09/13/17 21:00 Cardiovascular: Yes: S1, S2 Respiratory: Yes: Regular, CTA Bilaterally Gastrointestinal: Yes: Normal Bowel Sounds, Soft Labs: CBC, BMP 09/12/17 07:45 09/12/17 07:45 Discharge Summary Reason For Visit: UTI Current Active Problems Ciprofloxacin adverse reaction (Acute) Postmenopausal bleeding (Acute) UTI (urinary tract infection) (Acute) Weakness (Acute) Hospital Course: Ms Avila, pleasantly confused 67 yo female came through [facility] er for complicated UTI. She came in to ER originally on 09/09/17 with complaints of abdominal pain and red tinged urine on her diaper. Upon evaluation she was found to have cholelithiasis and cystitis. Surgery was consulted for cholelithiasis to r/o cholecyctitis. There were no acute findings and the abdominal pain was not r/t cholelithiasis. Her UC from 09/09/17 grew Pseudomonas aerugenosa, so her , who is the primary progressive care manager was called in to come back to ER for IV abx as patient is allergic to fluoroquinolones. Also, at bedside today states that he has not seen any more blood or blood - Problems (1) UTI (urinary tract infection) Assessment/Plan: -UC positive for pseudomonas aerugenosa -ID consult -IV abx-Ceftazidime, needs 10 days in total of abx -will go to [facility] , awaiting auth from insurance and then PICC line Code(s): N39.0 - URINARY TRACT INFECTION, SITE NOT SPECIFIED Qualifiers: Urinary tract infection type: site unspecified Hematuria presence: with hematuria Qualified Code(s): N39.0 - Urinary tract infection, site not specified; R31.9 - Hematuria, unspecified; R31.9 - Hematuria, unspecified (2) Abdominal pain Assessment/Plan: -resolved -likely secondary to Cystitis showed on pelvic/bladder U/S Code(s): R10.9 - UNSPECIFIED ABDOMINAL PAIN Qualifiers: Abdominal location: generalized Qualified Code(s): R10.84 - Generalized abdominal pain (3) Weakness Assessment/Plan: -Physical therapy -Spoke to , he is okay with patient going to rehab [facility] Code(s): R53.1 - WEAKNESS (4) Dementia Code(s): F03.90 - UNSPECIFIED DEMENTIA WITHOUT BEHAVIORAL DISTURBANCE Qualifiers: Dementia type: Alzheimer's disease Alzheimer's disease onset: unspecified onset Dementia behavioral disturbance: without behavioral disturbance Qualified Code(s): G30.9 - Alzheimer's disease, unspecified; F02.80 - Dementia in other diseases classified elsewhere without behavioral disturbance; F02.80 - Dementia in other diseases classified elsewhere without behavioral disturbance; F02.80 - Dementia in other diseases classified elsewhere without behavioral disturbance Condition: Stable - Instructions Referrals: Israel Maya MD [Primary Care Provider] - Disposition: NURSING HOME FACILITY - Home Medications Comprehensive Discharge Medication List: Ambulatory Orders Aspirin [Ecotrin] 81 mg PO DAILY 12/31/14 Atorvastatin Ca [Lipitor] 10 mg PO HS 01/21/17 Oxybutynin Chloride [Oxybutynin Chloride ER] 10 mg PO DAILY 01/21/17 Phenobarbital 32.4 mg PO BID 01/21/17 Cetirizine HCl [Zyrtec -] 10 mg PO DAILY 09/07/17 Escitalopram Oxalate [Lexapro -] 10 mg PO DAILY 09/07/17 Fluticasone Prop 0.05% Nasal [Flonase -] 1 spray NS BID 09/07/17 Folic Acid 1 mg PO DAILY 09/07/17 Memantine HCl/Donepezil HCl [Namzaric 28 mg-10 mg Capsule] 1 each PO DAILY 09/07 Heparin - 5,000 unit SQ BID vial 09/12/17 Pantoprazole Sodium [Protonix -] 40 mg PO DAILY tablet.ec 09/12/17 Albuterol 2.5/Ipratropium 0.5 [Duoneb -] 1 amp NEB Q6H PRN amp 09/15/17 Ceftazidime 1 gm Pre-Docked [Fortaz 1 gm Ivpb (Pre-Docked)] 1 gm IVPB BID bag 09/15/17
[2017-09-15] MEDS ORDERED: PT OWN MED DRAWER 7, Y5N ONE ×2 (10:06→21:07)
[2017-09-15] MEDS: ESCITALOPRAM OXALATE 10 MG TABLET (FP) PO SCH (10:13)
[2017-09-15] MEDS: ASPIRIN COATED 81 MG TABLET.EC PO SCH (10:13)
[2017-09-15] MEDS: PHENobarbital 30 MG TABLET PO SCH ×2 (10:13→21:19)
[2017-09-15] MEDS: PANTOPRAZOLE 40 MG TABLET (FP) PO SCH (10:13)
[2017-09-15] MEDS: FOLIC ACID 1 MG TABLET (FP) PO SCH (10:13)
[2017-09-15] MEDS: HEPARIN NA (PORCINE) 5,000 UNITS/ML 1ML VIAL SQ SCH ×2 (10:14→21:17)
[2017-09-15] MEDS: SOLIFENACIN SUCCINATE 5 MG TAB (FP) PO SCH (10:14)
[2017-09-15] MEDS: FLUTICASONE PROP 0.05% 16 GM NASAL SPRAY NS SCH ×2 (10:14→21:16)
[2017-09-15] MEDS: CEFTAZIDIME PENTAHYDRATE 1 GM in DEXTROSE 5%-WATER - 50 ML IVPB SCH ×2 (10:14→21:17)
[2017-09-15] MEDS: ALBUTEROL SO4 2.5/IPRATROPIUM 0.5 INH SOL 3 ML VIAL.NEB. NEB PRN (15:59)
[2017-09-15] MEDS: ATORVASTATIN CA 10 MG TABLET (FP) PO SCH (21:16)
--- NOTE | 2017-09-16 07:11 | DS ---
Physical Examination Vital Signs: Vital Signs Temperature 98.2 F 09/16/17 06:00 Pulse Rate 82 09/16/17 06:00 Respiratory Rate 20 09/16/17 06:00 Blood Pressure 130/77 09/15/17 14:35 O2 Sat by Pulse Oximetry (%) 96 09/15/17 21:00 Cardiovascular: Yes: Regular Rate and Rhythm Respiratory: Yes: Regular, CTA Bilaterally Gastrointestinal: Yes: Normal Bowel Sounds, Soft Labs: CBC, BMP 09/12/17 07:45 09/12/17 07:45 Discharge Summary Reason For Visit: UTI Current Active Problems Ciprofloxacin adverse reaction (Acute) Postmenopausal bleeding (Acute) UTI (urinary tract infection) (Acute) Weakness (Acute) Hospital Course: Ms Avila, pleasantly confused 67 yo female came through [facility] er for complicated UTI. She came in to ER originally on 09/09/17 with complaints of abdominal pain and red tinged urine on her diaper. Upon evaluation she was found to have cholelithiasis and cystitis. Surgery was consulted for cholelithiasis to r/o cholecyctitis. There were no acute findings and the abdominal pain was not r/t cholelithiasis. Her UC from 09/09/17 grew Pseudomonas aerugenosa, so her , who is the primary cna caregiver was called in to come back to ER for IV abx as patient is allergic to fluoroquinolones. Also, at bedside today states that he has not seen any more blood or blood - Problems (1) UTI (urinary tract infection) Assessment/Plan: -UC positive for pseudomonas aerugenosa -ID consult -IV abx-Ceftazidime, needs 10 days in total of abx -will go to [facility] , awaiting auth from insurance and then PICC line Code(s): N39.0 - URINARY TRACT INFECTION, SITE NOT SPECIFIED Qualifiers: Urinary tract infection type: site unspecified Hematuria presence: with hematuria Qualified Code(s): N39.0 - Urinary tract infection, site not specified; R31.9 - Hematuria, unspecified; R31.9 - Hematuria, unspecified (2) Abdominal pain Assessment/Plan: -resolved -likely secondary to Cystitis showed on pelvic/bladder U/S Code(s): R10.9 - UNSPECIFIED ABDOMINAL PAIN Qualifiers: Abdominal location: generalized Qualified Code(s): R10.84 - Generalized abdominal pain (3) Weakness Assessment/Plan: -Physical therapy -Spoke to , he is okay with patient going to rehab [facility] Code(s): R53.1 - WEAKNESS (4) Dementia Code(s): F03.90 - UNSPECIFIED DEMENTIA WITHOUT BEHAVIORAL DISTURBANCE Qualifiers: Dementia type: Alzheimer's disease Alzheimer's disease onset: unspecified onset Dementia behavioral disturbance: without behavioral disturbance Qualified Code(s): G30.9 - Alzheimer's disease, unspecified; F02.80 - Dementia in other diseases classified elsewhere without behavioral disturbance; F02.80 - Dementia in other diseases classified elsewhere without behavioral disturbance; F02.80 - Dementia in other diseases classified elsewhere without behavioral disturbance Condition: Stable - Instructions Referrals: Israel Maya MD [Primary Care Provider] - Disposition: [facility] FACILITY - Home Medications Comprehensive Discharge Medication List: Ambulatory Orders Aspirin [Ecotrin] 81 mg PO DAILY 12/31/14 Atorvastatin Ca [Lipitor] 10 mg PO HS 01/21/17 Oxybutynin Chloride [Oxybutynin Chloride ER] 10 mg PO DAILY 01/21/17 Phenobarbital 32.4 mg PO BID 01/21/17 Cetirizine HCl [Zyrtec -] 10 mg PO DAILY 09/07/17 Escitalopram Oxalate [Lexapro -] 10 mg PO DAILY 09/07/17 Fluticasone Prop 0.05% Nasal [Flonase -] 1 spray NS BID 09/07/17 Folic Acid 1 mg PO DAILY 09/07/17 Memantine HCl/Donepezil HCl [Namzaric 28 mg-10 mg Capsule] 1 each PO DAILY 09/07 Heparin - 5,000 unit SQ BID vial 09/12/17 Pantoprazole Sodium [Protonix -] 40 mg PO DAILY tablet.ec 09/12/17 Albuterol 2.5/Ipratropium 0.5 [Duoneb -] 1 amp NEB Q6H PRN amp 09/15/17 Ceftazidime 1 gm Pre-Docked [Fortaz 1 gm Ivpb (Pre-Docked)] 1 gm IVPB BID bag 09/15/17
[2017-09-16] MEDS: ALBUTEROL SO4 2.5/IPRATROPIUM 0.5 INH SOL 3 ML VIAL.NEB. NEB PRN (07:37)
[2017-09-16 10:33] VITALS: BP 132/69; PULSE 87; TEMP 98.6
[2017-09-16] MEDS ORDERED: PT OWN MED DRAWER 7, Y5N ONE (11:21)
[2017-09-16] MEDS: CEFTAZIDIME PENTAHYDRATE 1 GM in DEXTROSE 5%-WATER - 50 ML IVPB SCH (12:39)
[2017-09-16] MEDS: HEPARIN NA (PORCINE) 5,000 UNITS/ML 1ML VIAL SQ SCH (12:40)
[2017-09-16] MEDS: SOLIFENACIN SUCCINATE 5 MG TAB (FP) PO SCH (12:40)
[2017-09-16] MEDS: ESCITALOPRAM OXALATE 10 MG TABLET (FP) PO SCH (12:40)
[2017-09-16] MEDS: FOLIC ACID 1 MG TABLET (FP) PO SCH (12:40)
[2017-09-16] MEDS: PHENobarbital 30 MG TABLET PO SCH (12:40)
[2017-09-16] MEDS: ASPIRIN COATED 81 MG TABLET.EC PO SCH (12:40)
[2017-09-16] MEDS: PANTOPRAZOLE 40 MG TABLET (FP) PO SCH (12:40)
[2017-09-16] MEDS: FLUTICASONE PROP 0.05% 16 GM NASAL SPRAY NS SCH (12:41)
== END 2017-09-16 14:50 | DRG 690 ==
LOC: JER 09:45 → JERBED 11:20 → J6S 16:26
PROVIDERS: ADMIT Family Medicine; ATTEND Family Medicine
PROC: 02HV33Z Insertion of Infusion Device into Superior Vena Cava, Percutaneous Approach (ICD-10-PCS; principal; 2017-09-16)
DX: N39.0 Urinary tract infection, site not specified (principal); R10.9 Unspecified abdominal pain; R53.1 Weakness; G30.9 Alzheimer's disease, unspecified; F02.80 Dementia in other diseases classified elsewhere, unspecified severity, without behavioral disturbance, psychotic disturbance, mood disturbance, and anxiety; B96.5 Pseudomonas (aeruginosa) (mallei) (pseudomallei) as the cause of diseases classified elsewhere; N95.0 Postmenopausal bleeding; T36.8X5A Adverse effect of other systemic antibiotics, initial encounter; N83.201 Unspecified ovarian cyst, right side; E78.5 Hyperlipidemia, unspecified; R31.9 Hematuria, unspecified
CPT/HCPCS: 36415; 36569; 77001-TC-FY; 80053; 85025; 86304; 87040; 94640; 97116-GP; 97161-GP; 99282-25; C1751; J1644; J7620

== ENCOUNTER 2017-10-19 09:40 | Emergency (ER) | payer MEDICARE, OTHER ==
[2017-10-19 10:09] VITALS: TEMP 96.7; BMI 29.9
--- NOTE | 2017-10-19 10:19 | PDOC ---
History of Present Illness <Evon Chopra - Last Filed: 10/19/17 12:26> - History of Present Illness Initial Comments: 10/19/17 13:43 The patient is a 67-year-old female, with a significant past medical history of asthma, hyperlipidemia, alzheimers, and seizures, who presents to the ED s/p witnessed seizure today. As per , the patient usually wakes up every morning around 8:00 AM, but was sleeping more than usual today. At 8:30 AM reports that he heard his shaking in the bedroom and immediately ran over to the bedside. Patient was noted to have blood in her mouth. called 911 and patient was transported via EMS to the ED for further evaluation. Seizure lasted for approx 3 mins, but stopped by the time EMS arrived. He denies any falls or head trauma. He reports that Dr. Young recently changed her phenobarbital dosage from 92.4 mg 2x a day to 32 mg 2x a day. He believes that the patient had the seizure today secondary to this dosage change. Patient was said to be at her baseline yesterday, but now reports that the patient appears more tired, which is typical for her after seizures. He otherwise states she is at her baseline - pleasantly demented and non verbal. denies that the patient is experiencing any nausea, vomiting, diarrhea, or abdominal pain. No recent fevers, chills. He denies any chest pain or shortness of breath. Allergies: ciprofloxacin Past surgical history: None report Social history: No reported cigarette, alcohol, or drug use. PCP: Dr. Maya. <Jasmine Espinoza - Last Filed: 10/19/17 19:48> - General Chief Complaint: Seizure Stated Complaint: SEIZURE Time Seen by Provider: 10/19/17 09:45 Past History <Evon Chopra - Last Filed: 10/19/17 12:26> - Past Medical History Asthma: Yes COPD: No Dementia: Yes (Alzheimers) GI Disorders: Yes (H/O GALLSTONES/INCONTINENT OF STOOL) Disorders: Yes (HEMATURIA, incontinency) HTN: Yes Hypercholesterolemia: Yes Seizures: Yes - Suicide/Smoking/Psychosocial Hx Smoking History: Never smoked Have you smoked in the past 12 months: No Information on smoking cessation initiated: No Hx Alcohol Use: No Drug/Substance Use Hx: No Substance Use Type: None Hx Substance Use Treatment: No <Jasmine Espinoza - Last Filed: 10/19/17 19:48> - Past Medical History Allergies/Adverse Reactions: Allergies Allergy/AdvReac Type Severity Reaction Status Date / Time ciprofloxacin Allergy Intermediate Rash Verified 09/11/17 09:55 Home Medications: Ambulatory Orders Aspirin [Ecotrin] 81 mg PO DAILY 12/31/14 Atorvastatin Ca [Lipitor] 10 mg PO HS 01/21/17 Oxybutynin Chloride [Oxybutynin Chloride ER] 10 mg PO DAILY 01/21/17 Phenobarbital 32.4 mg PO BID 01/21/17 Cetirizine HCl [Zyrtec -] 10 mg PO DAILY 09/07/17 Escitalopram Oxalate [Lexapro -] 10 mg PO DAILY 09/07/17 Pantoprazole Sodium [Protonix -] 40 mg PO DAILY tablet.ec 09/12/17 Albuterol Sulfate Inhaler - [Ventolin Hfa Inhaler -] 1 - 2 inh PO Q4H PRN Memantine HCl 5 mg PO DAILY 10/19/17 Memantine HCl/Donepezil HCl [Namzaric 28 mg-10 mg Capsule] 1 each PO DAILY 10/19 Naproxen Sodium [Naproxen Sodium ER] 500 mg PO BID 10/19/17 Phenobarbital 32.4 mg PO BID #60 tablet MDD 2 tablets 10/19/17 Phenobarbital 60 mg PO BID #60 tablet MDD 2 tablets 10/19/17 Review of Systems - Review of Systems Comments:: 10/19/17 13:46 UTO <Jasmine Espinoza - Last Filed: 10/19/17 19:48> *Physical Exam - Vital Signs Last Vital Signs Temp Pulse Resp BP Pulse Ox 96.7 F L 75 18 112/69 100 10/19/17 09:40 10/19/17 09:40 10/19/17 09:40 10/19/17 09:40 10/19/17 09:40 <Evon Chopra - Last Filed: 10/19/17 12:26> - Vital Signs Last Vital Signs Temp Pulse Resp BP Pulse Ox 96.7 F L 75 18 112/69 100 10/19/17 09:40 10/19/17 09:40 10/19/17 09:40 10/19/17 09:40 10/19/17 09:40 - Physical Exam Comments: 10/19/17 13:51 GENERAL: (+)Nonverbal. Awake, alert, smiling in no acute distress. HEAD: No signs of trauma EYES: PERRLA, EOMI, sclera anicteric, conjunctiva clear LUNGS: Breath sounds equal, clear to auscultation bilaterally. No wheezes, and no crackles HEART: Regular rate and rhythm, normal S1 and S2, no murmurs, rubs or gallops ABDOMEN: Soft, nontender, normoactive bowel sounds. No guarding, no rebound. No masses EXTREMITIES: Normal range of motion, no edema. No clubbing or cyanosis. No cords , erythema, or tenderness BACK: No midline spinal tenderness in cervical/thoracic/lumbar region NEUROLOGICAL: Cranial nerves intact, moves all 4 extremities, normal tone. Not cooperative with remainder of exam SKIN: Warm, Dry, normal turgor, no rashes or lesions noted. <Jasmine Espinoza - Last Filed: 10/19/17 19:48> Heart Score/ECG Review #1 10/19/17 13:52 Twelve-lead EKG was performed and reviewed by me. Normal sinus rhythm, rate 63. Normal axis and intervals. No ST elevations. Isolated T-wave inversion in lead 3. <Jasmine Espinoza - Last Filed: 10/19/17 19:48> ED Treatment Course - LABORATORY CBC & Chemistry Diagram: 10/19/17 11:05 10/19/17 10:50 - RADIOLOGY Radiology Studies Ordered: 10/19/17 11:41 Chest X-Ray was reviewed by Dr. Espinoza and overread by Radiology. Impression: Limited examination. Shallow inspiration. No evidence of CHF, pulmonary infiltrates, pneumothorax, or large pleural effusion. 10/19/17 12:[address] was reviewed by Dr. Espinoza and overread by Radiology. Impression: No significant interval change or acute intracranial pathology is identified. <Evon Chopra - Last Filed: 10/19/17 12:26> - LABORATORY CBC & Chemistry Diagram: 10/19/17 11:05 10/19/17 10:50 <Jasmine Espinoza - Last Filed: 10/19/17 19:48> Medical Decision Making - Medical Decision Making 10/19/17 10:23 Dr. Estrada called at 10:23 AM, case discussed with Dr. Espinoza. <Evon Chopra - Last Filed: 10/19/17 12:26> - Medical Decision Making 10/19/17 10:40 67yo F with MMP including alzheimers dementia and seizure d/o, typically well controlled on phenobarb presents to the ED with a GTC seizure. Vitals wnl. Pt currently at her baseline with unremarkable exam. Unable to visualize tongue as pt is not cooperative with exam. but likely has a tongue bite as she had dried blood on her face on arrival. Pt no longer bleeding from lac. Pt likely had seizure as she has been taking 32mg PO phenobarb BID as opposed to her usual dose of 92mg BID since discharge from [facility]. Case discussed with Dr. Estrada ( covering for Dr. Tucker) who recommends an IV load of 130mg and then she can be resumed on her usual dose. Will check labs, UA, CXR, CTH to r/o infection as alternate cause for breakthrough seizure. 10/19/17 19:30 Work up negative so far, UA pending Pt has been observed for 10hrs now, at her baseline per her Loaded with phenobarb 10/19/17 19:46 UA negative, pt at her baseline, stable for DC home I discussed the physical exam findings, ancillary test results and final diagnoses with the patient. I answered all of the patient's questions. The patient was satisfied with the care received and felt comfortable with the discharge plan and treatment plan. The patient will call their primary care physician within 24 hours to arrange follow-up and will return to the Emergency Department with any new, persistent or worsening symptoms. <Jasmine Espinoza - Last Filed: 10/19/17 19:48> *DC/Admit/Observation/Transfer <Evon Chopra - Last Filed: 10/19/17 12:26> - Discharge Dispostion Decision to Admit order: No - Attestations Physician Attestion: 10/19/17 19:47 I, Dr. Jasmine Espinoza MD, attest that this document has been prepared under my direction and personally reviewed by me in its entirety. I further attest, that it accurately reflects all work, treatment, procedures and medical decision -making performed by me. <Jasmine Espinoza - Last Filed: 10/19/17 19:48> Diagnosis at time of Disposition: Seizure - Discharge Dispostion Disposition: HOME Condition at time of disposition: Stable - Prescriptions Prescriptions: Phenobarbital 32.4 mg PO BID #60 tablet MDD 2 tablets Phenobarbital 60 mg PO BID #60 tablet MDD 2 tablets - Referrals Referrals: Israel Maya MD [Primary Care Provider] - Taras Tucker MD [Staff Physician] - - Patient Instructions Printed Discharge Instructions: DI for Seizure Disorder -- Adult Additional Instructions: Follow up with Dr. Tucker (neurologist) within 1-2 weeks. Follow up with Dr. Maya within 1 week. Return to the emergency department if you have any new, worsening, or concerning symptoms. - Post Discharge Activity
[2017-10-19] MEDS ORDERED: PHENobarbital SODIUM 65 MG/1 ML VIAL IVPB ONE (10:26)
[2017-10-19 11:14] LABS: BASO % 0.5 % (0-2.0); EOS % 3.9 % (0-4.5); HEMATOCRIT 39.9 % (32.4-45.2); HEMOGLOBIN 13.1 GM/dL (10.7-15.3); LYMPH % 9.3 % (8-40); MCH 30.5 pg (25.7-33.7); MCHC 32.8 g/dl (32.0-36.0); MEAN PLT VOLUME 9.6 fl (7.5-11.1); MONO % 5.5 % (3.8-10.2); NEUT % 80.8 % (42.8-82.8); PLATELET COUNT 198 K/MM3 (134-434); RBC 4.29 M/mm3 (3.60-5.2); RDW 14.3 % (11.6-15.6); WHITE BLOOD COUNT 8.1 K/mm3 (4.0-10.0)
[2017-10-19 12:07] LABS: ALBUMIN 3.7 g/dl (3.4-5.0); ANION GAP 9 (8-16); BLOOD UREA NITROGEN 17 mg/dL (7-18); CALCIUM 8.7 mg/dL (8.5-10.1); CHLORIDE 108 mmol/L (98-107); CO2 26 mmol/L (21-32); GLUCOSE,RANDOM 109 mg/dL (74-106); SODIUM 143 mmol/L (136-145)
[2017-10-19 12:10] LABS: BILIRUBIN,TOTAL 0.2 mg/dL (0.2-1.0); CREATININE 0.8 mg/dL (0.55-1.02); SGPT/ALT 18 U/L (12-78)
[2017-10-19 12:12] LABS: MAGNESIUM 2.2 mg/dL (1.8-2.4); SGOT/AST 20 U/L (15-37)
[2017-10-19 12:14] LABS: ALK PHOS 131 U/L (45-117)
--- NOTE | 2017-10-19 13:00 | EKG ---
Test Reason : Blood Pressure : / mmHG Vent. Rate : 063 BPM Atrial Rate : 063 BPM P-R Int : 170 ms QRS Dur : 082 ms QT Int : 420 ms P-R-T Axes : 052 007 016 degrees QTc Int : 429 ms NORMAL SINUS RHYTHM NORMAL ECG WHEN COMPARED WITH ECG OF 07-SEP-2017 07:22, NO SIGNIFICANT CHANGE WAS FOUND Confirmed by ABIMBOLA DURAND MD ([id number]) on 10/19/2017 1:00:43 PM Referred By: Confirmed By:ABIMBOLA DURAND MD
[2017-10-19 17:29] LABS: URINE APPEARANCE CLEAR; URINE BILIRUBIN NEGATIVE (<2.0 mg/dL); URINE COLOR STRAW; URINE GLUCOSE (UA) NEGATIVE (NEGATIVE); URINE KETONE NEGATIVE (NEGATIVE); URINE LEUK ESTERASE TRACE (NEGATIVE); URINE NITRITE NEGATIVE (NEGATIVE); URINE PROTEIN NEGATIVE (NEGATIVE); URINE UROBILINOGEN NEGATIVE mg/dL (0.2-1.0)
[2017-10-19 18:53] LABS: EPI CELLS RARE /HPF (FEW); URINE BACTERIA RARE /hpf (NONE SEEN); URINE MUCUS RARE
[2017-10-19 20:22] VITALS: BP 100/56; PULSE 71
--- NOTE | 2017-10-22 07:51 | PDOC ---
Patient Follow-up (Call Back) - Post ED Follow - Up Condition at time of discharge: Stable Disposition at time of original discharge: HOME Reason for Call Back: Abnwl. Microbiology (Urine prelim with + lactose fermenting - bacilli. Pt on no abx. Hx seizures. will await sensitivity.)
== END 2017-10-19 20:15 | disposition home or self-care (01) ==
LOC: JER 09:40
DX: G40.909 Epilepsy, unspecified, not intractable, without status epilepticus (principal); J45.909 Unspecified asthma, uncomplicated; E78.5 Hyperlipidemia, unspecified; I10 Essential (primary) hypertension; G30.9 Alzheimer's disease, unspecified; F02.80 Dementia in other diseases classified elsewhere, unspecified severity, without behavioral disturbance, psychotic disturbance, mood disturbance, and anxiety; Z88.1 Allergy status to other antibiotic agents
CPT/HCPCS: 36415; 70450-TC; 71045-TC-FY; 80053; 81003; 81015; 83735; 84484; 85025; 87086; 87186; 93005; 93010; 99284-25

== ENCOUNTER 2018-01-12 07:54 | Observation (INO) | payer MEDICARE, OTHER ==
--- NOTE | 2018-01-12 09:04 | PDOC ---
History of Present Illness - History of Present Illness Initial Comments: 01/12/18 08:54 67 year old woman, with a pmhx asthma, hyperlipidemia, alzheimers, dementia, arthritis and seizures, who presents to the ED s/p witnessed seizure 0700 this AM. At baseline patient is nonverbal, does not follow commands, has fecal and urinary incontinence. Per patient's the patient's seizure looked exactly like her typical seizures with her arms extended and whole body shaking. She has seizures with a frequency of about 2 months since initial onset in 2013. The patient takes phenobarbitol 92 mg 2x a day. The denies any recent illness, coughing, fevers, blood in urine or stool, vomiting or diarrhea. The notes so other symptoms or concerns at bedside. PMHX: as in HPI PSHX: see below Meds: see below Allergies: ciprofloxacin Tob: none Etoh: none Rec drugs: none PCP: [facility] Supervisor: [phone] <Guerita Granado - Last Filed: 01/13/18 10:40> <Terri Westbrook - Last Filed: 01/14/18 07:32> - General Chief Complaint: Seizure Stated Complaint: SEIZURE Time Seen by Provider: 01/12/18 08:05 Past History - Past Medical History Asthma: Yes COPD: No Dementia: Yes (Alzheimers) GI Disorders: Yes (H/O GALLSTONES/INCONTINENT OF STOOL) Disorders: Yes (HEMATURIA, incontinency) HTN: Yes Hypercholesterolemia: Yes Seizures: Yes - Suicide/Smoking/Psychosocial Hx Smoking History: Never smoked Have you smoked in the past 12 months: No Information on smoking cessation initiated: No Hx Alcohol Use: No Drug/Substance Use Hx: No Substance Use Type: None Hx Substance Use Treatment: No <Guerita Granado - Last Filed: 01/13/18 10:40> <Terri Westbrook - Last Filed: 01/14/18 07:32> - Past Medical History Allergies/Adverse Reactions: Allergies Allergy/AdvReac Type Severity Reaction Status Date / Time ciprofloxacin Allergy Intermediate Rash Verified 01/12/18 08:07 Home Medications: Ambulatory Orders Aspirin [Ecotrin] 81 mg PO DAILY 12/31/14 Atorvastatin Ca [Lipitor] 10 mg PO HS 01/21/17 Oxybutynin Chloride [Oxybutynin Chloride ER] 10 mg PO DAILY 01/21/17 Cetirizine HCl [Zyrtec -] 10 mg PO DAILY 09/07/17 Escitalopram Oxalate [Lexapro -] 10 mg PO DAILY 09/07/17 Pantoprazole Sodium [Protonix -] 40 mg PO DAILY tablet.ec 09/12/17 Albuterol Sulfate Inhaler - [Ventolin Hfa Inhaler -] 1 - 2 inh PO Q4H PRN Memantine HCl 5 mg PO DAILY 10/19/17 Memantine HCl/Donepezil HCl [Namzaric 28 mg-10 mg Capsule] 1 each PO DAILY 10/19 Naproxen Sodium [Naproxen Sodium ER] 500 mg PO BID 10/19/17 Phenobarbital 32.4 mg PO BID #60 tablet MDD 2 tablets 10/19/17 Phenobarbital 60 mg PO BID #60 tablet MDD 2 tablets 10/19/17 Cephalexin Monohydrate [Keflex -] 500 mg PO BID #14 capsule 10/23/17 Review of Systems - Review of Systems Able to Perform ROS?: No (AMS) <Guerita Granado - Last Filed: 01/13/18 10:40> *Physical Exam - Vital Signs Last Vital Signs Temp Pulse Resp BP Pulse Ox 97 F L 77 16 118/75 100 01/12/18 07:55 01/12/18 07:55 01/12/18 07:55 01/12/18 07:55 01/12/18 07:55 - Physical Exam Comments: 01/12/18 09:10 GENERAL: nonverbal, in bed, occasionally alert when spoken to (baseline per ) HEAD: No signs of trauma, normocephalic, atraumatic EYES: clera anicteric, conjunctiva clear ENT: will not open mouth NECK: Normal ROM, supple LUNGS: clear to auscultation anteriorly HEART: Regular rate and rhythm, normal S1 and S2, no murmurs, rubs or gallops, peripheral pulses normal and equal bilaterally. ABDOMEN: Soft, normoactive bowel sounds. No guarding, no rebound. No masses EXTREMITIES : Normal inspection, no edema. No clubbing or cyanosis. NEUROLOGICAL: Will not follow commands SKIN: Warm, Dry, normal turgor, no rashes or lesions noted <Guerita Granado - Last Filed: 01/13/18 10:40> - Vital Signs Last Vital Signs Temp Pulse Resp BP Pulse Ox 97 F L 68 16 117/67 100 01/12/18 07:55 01/12/18 13:16 01/12/18 13:16 01/12/18 13:16 01/12/18 13:16 <Terri Westbrook - Last Filed: 01/14/18 07:32> ED Treatment Course - LABORATORY CBC & Chemistry Diagram: 01/13/18 09:20 01/13/18 09:20 <Guerita Granado - Last Filed: 01/13/18 10:40> - LABORATORY CBC & Chemistry Diagram: 01/13/18 09:20 01/13/18 09:20 - ADDITIONAL ORDERS Additional order review: Laboratory Results 01/12/18 01/12/18 12:45 09:40 Sodium 142 Potassium 4.2 Chloride 107 Carbon Dioxide 27 Anion Gap 8 BUN 18 Creatinine 0.7 Creat Clearance w eGFR > 60 Random Glucose 96 Calcium 9.1 Total Bilirubin 0.1 L AST 22 ALT 17 Alkaline Phosphatase 111 Total Protein 6.8 Albumin 3.7 Urine Color Straw Urine Appearance Clear Urine pH 8.0 Ur Specific [place] 1.006 Urine Protein Negative Urine Glucose (UA) Negative Urine Ketones Negative Urine Blood 2+ H Urine Nitrite Positive Urine Bilirubin Negative Urine Urobilinogen Negative Ur Leukocyte Esterase Negative Urine WBC (Auto) 1 Urine RBC (Auto) 5 Ur Epithelial Cells Rare Urine Bacteria Many 01/12/18 09:40 RBC 4.07 MCV 92.2 MCHC 32.4 RDW 14.8 MPV 9.2 Neutrophils % 57.1 D Lymphocytes % 22.3 D Monocytes % 7.4 Eosinophils % 12.3 H D Basophils % 0.9 - Medications Given in the ED: ED Medications Discontinued Medications Generic Name Dose Route Start Last Admin Trade Name Freq PRN Reason Stop Dose Admin Ceftriaxone Sodium 1,000 mg/ 50 mls @ 100 mls/hr 01/12/18 13:19 01/12/18 13: 30 Dextrose IVPB 01/12/18 13:48 100 mls/hr ONCE ONE Administration Phenobarbital 92 mg 01/12/18 09:17 01/12/18 09:52 Phenobarbital Injection - IV 01/12/18 09:18 92 mg NOW ONE Administration <Terri Westbrook - Last Filed: 01/14/18 07:32> Medical Decision Making - Medical Decision Making 01/12/18 09:10 67 year old woman, with a pmhx asthma, hyperlipidemia, alzheimers, dementia, arthritis and seizures, who presents to the ED s/p witnessed seizure 0700 this AM. At baseline patient is nonverbal, does not follow commands, has fecal and urinary incontinence. Per patient's the patient's seizure looked exactly like her typical seizures with her arms extended and whole body shaking. She has seizures with a frequency of about 2 months since initial onset in 2013. DDX including but not limited to: seizure 2/2 subtherapeutic AED vs PNA vs UTI vs arrythmia W/U: - cbc, cmp - ua, ucx TX: - 1L NS ED Course: Patient stable and at baseline per family 01/12/18 10:54 CBC, CMP, CXR: unremarkable. 01/12/18 11:10 Pt reassessed. at baseline. 01/12/18 12:57 Pt reassessed. stable. Family updated of all labs. Pending urine 01/12/18 14:43 [facility] Supervisor #[id number] This play writer spoke with pt's > 30min about admission. Family agrees to plan. Patient admitted to medicine. <Guerita Granado - Last Filed: 01/13/18 10:40> *DC/Admit/Observation/Transfer - Discharge Dispostion Decision to Admit order: Yes <Guerita Granado - Last Filed: 01/13/18 10:40> - Discharge Dispostion Decision to Admit order: Yes Decision to Admit order Date/Time: 01/14/18 07:32 <Terri Westbrook - Last Filed: 01/14/18 07:32> Diagnosis at time of Disposition: Seizure, UTI (urinary tract infection) - Discharge Dispostion Condition at time of disposition: Guarded
[2018-01-12] MEDS ORDERED: SODIUM CHLORIDE 1,000 ML IV SCH (09:15)
[2018-01-12] MEDS ORDERED: PHENobarbital SODIUM 130 MG/1 ML VIAL IV ONE (09:17)
[2018-01-12] MEDS ORDERED: PHENobarbital SODIUM 130 MG/1 ML VIAL ONE (09:47)
[2018-01-12 09:49] LABS: BASO % 0.9 % (0-2.0); EOS % 12.3 % (0-4.5); HEMATOCRIT 37.5 % (32.4-45.2); HEMOGLOBIN 12.2 GM/dL (10.7-15.3); LYMPH % 22.3 % (8-40); MCH 29.9 pg (25.7-33.7); MCHC 32.4 g/dl (32.0-36.0); MEAN CELL VOLUME 92.2 fl (80-96); MEAN PLT VOLUME 9.2 fl (7.5-11.1); MONO % 7.4 % (3.8-10.2); NEUT % 57.1 % (42.8-82.8); PLATELET COUNT 173 K/MM3 (134-434); RBC 4.07 M/mm3 (3.60-5.2); RDW 14.8 % (11.6-15.6); WHITE BLOOD COUNT 4.8 K/mm3 (4.0-10.0)
[2018-01-12 10:08] LABS: ALBUMIN 3.7 g/dl (3.4-5.0); ANION GAP 8 MMOL/L (8-16); BILIRUBIN,TOTAL 0.1 mg/dL (0.2-1); BLOOD UREA NITROGEN 18 mg/dL (7-18); CALCIUM 9.1 mg/dL (8.5-10.1); CHLORIDE 107 mmol/L (98-107); CO2 27 mmol/L (21-32); CREATININE 0.7 mg/dL (0.55-1.3); GLUCOSE,RANDOM 96 mg/dL (74-106); SGPT/ALT 17 U/L (13-61); SODIUM 142 mmol/L (136-145); TOT PROT 6.8 g/dl (6.4-8.2)
[2018-01-12 10:09] LABS: ALK PHOS 111 U/L (45-117)
--- NOTE | 2018-01-12 10:11 | PDOC ---
Attending Attestation - Resident Resident Name: BhaskarfloraGuerita - ED Attending Attestation I have performed the following: I have examined & evaluated the patient, The case was reviewed & discussed with the resident, I agree w/resident's findings & plan - HPI HPI: 01/12/18 13:39 67 year old woman, with a pmhx asthma, hyperlipidemia, alzheimers, dementia, arthritis and seizures, who presents to the ED s/p witnessed seizure 0700 this AM. At baseline patient is nonverbal, does not follow commands, has fecal and urinary incontinence. witnessed seizure by , now back to baseline status, nonverbal, no trauma. She has seizures with a frequency of about 2 months since initial onset in 2013. The patient takes phenobarbitol 92 mg 2x a day. missed dose this morning. history limited 2/2 dementia - Physicial Exam PE: 01/12/18 13:41 nonverbal, alert. no acute distress. +malodorous. MMM, clenched jaws, no tongue lacs. nl conjunctiva, anicteric; neck supple. lungs clear, RRR, abdomen soft nontender. +obese. No peripheral edema. normal color for ethnicity, WWP. - Medical Decision Making 01/12/18 13:38 [place] 67 year old woman, with a pmhx asthma, hyperlipidemia, alzheimers, dementia, arthritis and seizures p/w witnessed seizure this morning. Every 2 months since 2013. on phenobarbital. Baseline nonverbal and baseline with urinary incontinence. Takes phenobarb, missed morning dose Vital signs reviewed, wnl. low temp. does not appear septic. Medical Plan: CBC, CMP, UA, urine cx, ECG, Prior notes reviewed, including admissions, discharges and consultations. laboratory results and imaging reviewed, basic labs and lytes wnl, notable for + UA with nitrites and urine culture pending. . EKG normal sinus rhythm, no interval abnormalities, narrow QRS, ST and T wave segments and morphology normal. Nonspecific T wave abnormalities given IVF and ceftriaxone for UTI, prior urine cultures +pseudomonas and E coli , with nitrites, will most likely be e. coli infection and sensitivities reviewed. given dose of home dose phenobarbitol. no further sz activity here, continue to monitor. Dispo: admit to Dr. Maya, called service for admission to observation. Admit for UTI, seizure. Discussed results and management plan with pt and family member at bedside, agree with impression and plan 01/12/18 13:43 Heart Score/ECG Review - ECG Impressions Comment:: 01/12/18 13:44 EKG normal sinus rhythm, no interval abnormalities, narrow QRS, ST and T wave segments and morphology normal. Nonspecific T wave abnormalities
[2018-01-12 10:23] LABS: POTASSIUM 4.2 mmol/L (3.5-5.1); SGOT/AST 22 U/L (15-37)
[2018-01-12 12:53] LABS: URINE APPEARANCE CLEAR; URINE BILIRUBIN NEGATIVE (<2.0 mg/dL); URINE COLOR STRAW; URINE GLUCOSE (UA) NEGATIVE (NEGATIVE); URINE KETONE NEGATIVE (NEGATIVE); URINE LEUK ESTERASE NEGATIVE (NEGATIVE); URINE NITRITE POSITIVE (NEGATIVE); URINE PROTEIN NEGATIVE (NEGATIVE); URINE UROBILINOGEN NEGATIVE mg/dL (0.2-1.0)
[2018-01-12 13:04] LABS: EPI CELLS RARE /HPF (FEW)
[2018-01-12] MEDS ORDERED: CEFTRIAXONE 1,000 MG in DEXTROSE 5%-WATER - 50 ML IVPB ONE (13:19)
[2018-01-12 13:23] LABS: URINE BACTERIA MANY /hpf (NONE SEEN)
[2018-01-12] MEDS ORDERED: CEFTRIAXONE 1 GM/50 ML BAG ONE (13:26)
--- NOTE | 2018-01-12 14:41 | EKG ---
Test Reason : Blood Pressure : / mmHG Vent. Rate : 073 BPM Atrial Rate : 073 BPM P-R Int : 168 ms QRS Dur : 070 ms QT Int : 392 ms P-R-T Axes : 046 029 036 degrees QTc Int : 431 ms POOR DATA QUALITY, INTERPRETATION MAY BE ADVERSELY AFFECTED NORMAL SINUS RHYTHM NORMAL ECG WHEN COMPARED WITH ECG OF 19-OCT-2017 10:36, NO SIGNIFICANT CHANGE WAS FOUND Confirmed by PROMISE LAYTON, EDNA ([id number]) on 01/12/2018 2:41:29 PM Referred By: Confirmed By:EDNA VIRGEN MD
[2018-01-12 21:35] VITALS: BMI 31.4
--- NOTE | 2018-01-12 22:46 | HP ---
Admitting History and Physical - Primary Care Physician PCP: Demetrius Young - Admission Chief Complaint: Witnessed Seizure Activity History of Present Illness: This is a 67 y/o woman with a past medical history of Seizure Disorder (on Phenobarbital), Dementia, Alzheimer (non-verbal), HTN, HLD, Neurogenic Bladder. Who presents to the ED with witnessed seizure activity by the patient's spouse. Per the he witnessed seizure 0700 this AM. At baseline patient is nonverbal, does not follow commands, has fecal and urinary incontinence. Per patient's the patient's seizure looked exactly like her typical seizures with her arms extended and whole body shaking. She has seizures with a frequency of about 2 months since initial onset in 2013. The patient takes phenobarbitol 92 mg 2x a day. The reports that the patient has had increased episodes of bowel incontinence and he is concerned. The denies any recent illness, coughing, fevers,vomiting or diarrhea, blood in urine or stool. 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 No: CHF Pulmonary: Yes: Asthma Renal/: Yes: Hematuria, Neurogenic Bladder, UTI - Smoking History Smoking history: Never smoked Have you smoked in the past 12 months: No - Alcohol/Substance Use Hx Alcohol Use: No History of Substance Use: reports: None - Social History ADL: Support Services History of Recent Travel: No Home Medications - Allergies Allergies/Adverse Reactions: Allergies Allergy/AdvReac Type Severity Reaction Status Date / Time ciprofloxacin Allergy Intermediate Rash Verified 01/12/18 08:07 - Home Medications Home Medications: Ambulatory Orders Aspirin [Ecotrin] 81 mg PO DAILY 12/31/14 Atorvastatin Ca [Lipitor] 10 mg PO HS 01/21/17 Oxybutynin Chloride [Oxybutynin Chloride ER] 10 mg PO DAILY 01/21/17 Cetirizine HCl [Zyrtec -] 10 mg PO DAILY 09/07/17 Escitalopram Oxalate [Lexapro -] 10 mg PO DAILY 09/07/17 Pantoprazole Sodium [Protonix -] 40 mg PO DAILY tablet.ec 09/12/17 Albuterol Sulfate Inhaler - [Ventolin Hfa Inhaler -] 1 - 2 inh PO Q4H PRN Memantine HCl 5 mg PO DAILY 10/19/17 Memantine HCl/Donepezil HCl [Namzaric 28 mg-10 mg Capsule] 1 each PO DAILY 10/19 Naproxen Sodium [Naproxen Sodium ER] 500 mg PO BID 10/19/17 Phenobarbital 32.4 mg PO BID #60 tablet MDD 2 tablets 10/19/17 Phenobarbital 60 mg PO BID #60 tablet MDD 2 tablets 10/19/17 Cephalexin Monohydrate [Keflex -] 500 mg PO BID #14 capsule 10/23/17 Family Disease History - Family Disease History Family History: Unable to Obtain Review of Systems Unable to obtain ROS, reason: Alzheimer's/Dementia Physical Examination Vital Signs: Vital Signs Temperature 98.4 F 01/12/18 21:08 Pulse Rate 79 01/12/18 21:08 Respiratory Rate 18 01/12/18 21:08 Blood Pressure 152/68 01/12/18 21:08 O2 Sat by Pulse Oximetry (%) 96 01/12/18 21:08 Constitutional: Yes: No Distress, Calm Eyes: Yes: Conjunctiva Clear, PERRL HENT: Yes: WNL, Atraumatic, Normocephalic Neck: Yes: WNL, Supple, Trachea Midline Cardiovascular: Yes: WNL, Regular Rate and Rhythm, S1, S2 Respiratory: Yes: WNL, Regular, CTA Bilaterally Gastrointestinal: Yes: Normal Bowel Sounds, Soft, Abdomen, Obese ...Rectal Exam: Yes: Deferred Musculoskeletal: Yes: WNL Extremities: Yes: WNL Edema: No Peripheral Pulses WNL: Yes Neurological: Yes: Alert, Aphasia, Confusion. No: Seizure Psychiatric: Yes: Alert Labs: CBC, BMP 01/12/18 09:40 01/12/18 09:40 Laboratory Results - last 24 hr 01/12/18 01/12/18 01/12/18 09:40 09:40 12:45 WBC 4.8 RBC 4.07 Hgb 12.2 Hct 37.5 MCV 92.2 MCH 29.9 MCHC 32.4 RDW 14.8 Plt Count 173 MPV 9.2 Absolute Neuts (auto) 2.8 Neutrophils % 57.1 D Lymphocytes % 22.3 D Monocytes % 7.4 Eosinophils % 12.3 H D Basophils % 0.9 Nucleated RBC % 0 Sodium 142 Potassium 4.2 Chloride 107 Carbon Dioxide 27 Anion Gap 8 BUN 18 Creatinine 0.7 Creat Clearance w eGFR > 60 Random Glucose 96 Calcium 9.1 Total Bilirubin 0.1 L AST 22 ALT 17 Alkaline Phosphatase 111 Total Protein 6.8 Albumin 3.7 Urine Color Straw Urine Appearance Clear Urine pH 8.0 Ur Specific Barnhart 1.006 Urine Protein Negative Urine Glucose (UA) Negative Urine Ketones Negative Urine Blood 2+ H Urine Nitrite Positive Urine Bilirubin Negative Urine Urobilinogen Negative Ur Leukocyte Esterase Negative Urine WBC (Auto) 1 Urine RBC (Auto) 5 Ur Epithelial Cells Rare Urine Bacteria Many Intake & Output 01/10/18 01/11/18 01/12/18 01/13/18 23:59 23:59 23:59 23:59 Intake Total 0 Balance 0 Weight 85.729 kg Current Medications Generic Name Dose Route Start Last Admin Trade Name Freq PRN Reason Stop Dose Admin Ceftriaxone Sodium 1 gm/ 50 mls @ 100 mls/hr 01/13/18 10:00 Dextrose IVPB DAILY ALCIDES Protocol Dextrose/Sodium Chloride 1,000 mls @ 42 mls/hr 01/13/18 03:15 01/13/18 03:39 D5-1/2ns - IV 42 mls/hr ASDIR ALCIDES Administration Phenobarbital 92 mg 01/12/18 22:45 01/12/18 23:55 Phenobarbital Injection - IVPB 92 mg BID ALCIDES Administration Imaging - Results Chest X-ray: Report Reviewed, Image Reviewed Cat Scan: Report Reviewed, Image Reviewed EKG: Pending Problem List - Problems (1) Seizure Code(s): R56.9 - UNSPECIFIED CONVULSIONS (2) Dementia Code(s): F03.90 - UNSPECIFIED DEMENTIA WITHOUT BEHAVIORAL DISTURBANCE Qualifiers: Dementia type: Alzheimer's disease Alzheimer's disease onset: unspecified onset Dementia behavioral disturbance: without behavioral disturbance Qualified Code(s): G30.9 - Alzheimer's disease, unspecified; F02.80 - Dementia in other diseases classified elsewhere without behavioral disturbance (3) Alzheimer disease Code(s): G30.9 - ALZHEIMER'S DISEASE, UNSPECIFIED; F02.80 - DEMENTIA IN OTH DISEASES CLASSD ELSWHR W/O BEHAVRL DISTURB (4) Asthma Code(s): J45.909 - UNSPECIFIED ASTHMA, UNCOMPLICATED (5) HLD (hyperlipidemia) Code(s): E78.5 - HYPERLIPIDEMIA, UNSPECIFIED (6) HTN (hypertension) Code(s): I10 - ESSENTIAL (PRIMARY) HYPERTENSION Assessment/Plan This is a 67 y/o woman with a PMHx of Seizure Disorder (on Phenobarbital), Alzheimer, Dementia, HTN, HLD, Asthma. Placed on Observation for Seizure Activity, UTI for further evaluation of their emergent condition. Plan: 1. Seizure Activity- Head CT ordered tonight it showed-involutional changes, no hemorrhage, no definite mass, no obvious infarct, no shift, no herniation, Appreciate Neurology consult, Phenobarbital given in ED, will continue, add on Phenobarbital level, Seizure Precautions, Fall Precautions, Monitor vitals, Monitor CBC, BMP in am. 2. UTI- UA- +2 blood, +nitrates, Urine Culture-pending, Ceftriaxone given in ED will continue, Appreciate ID consult, Monitor CBC, BMP, Monitor vitals 3. Alzheimer's/Dementia- Continue home med, Fall Precautions 4. Hypertension- stable, Monitor vitals, Continue home meds, Monitor renal function 5. Hyperlipidemia- stable, Continue home med 6. Asthma- controlled, no active flare, continue home med, monitor Spo2 7. FEN- D51/2nS@42ml/hr, Replete lytes prn, NPO until seen by Neurology 8. DVT ppx- SCDs, Heparin SQ Code Status: Full Code Dispo: Observation Addendum: Was notified by RN that the patient has been on 6 south without orders or a H&P In ED records admission was called to the PCP's service at 13:38 I placed admission orders, evaluated the patient and did an H&P tonight. Care was assumed at 22:42 Visit type - Emergency Visit Emergency Visit: Yes ED Registration Date: 01/12/18 Care time: The patient presented to the Emergency Department on the above date and was hospitalized for further evaluation of their emergent condition. - New Patient This patient is new to me today: Yes Date on this admission: 01/12/18 - Critical Care Critical Care patient: No Hospitalist Screening - Colonoscopy Questionnaire Colonoscopy Questionnaire: Colonoscopy Questionnaire - Patient: 50 - 75 years old and never had a screening colonoscopy: Unknown History of colon or rectal polyps, or CA: Unknown History of IBD, Crohn's disease or UC: Unknown History of abdominal radiation therapy as a child: Unknown - Relative: 1 with colon or rectal CA, or polyps at age 60 or younger: Unknown Colon or rectal CA diagnosed at age 45 or younger: Unknown Multiple relatives with colon or rectal CA: Unknown - Outcome: Screening Result: Negative Screen
[2018-01-12] MEDS ORDERED: SODIUM CHLORIDE IV SCH (23:00)
[2018-01-12] MEDS ORDERED: PHENOBARBITAL IV SCH (23:00)
[2018-01-12] MEDS ORDERED: ACETAMINOPHEN 325 MG TABLET (FP) PO ONE (23:37)
[2018-01-12] MEDS: PHENobarbital SODIUM 65 MG/1 ML VIAL IVPB SCH (23:55)
[2018-01-13] MEDS ORDERED: DEXTROSE 5%-0.45% SALINE 1,000 ML IV SCH (03:15)
[2018-01-13 09:59] LABS: ANION GAP 8 MMOL/L (8-16); BLOOD UREA NITROGEN 17 mg/dL (7-18); CHLORIDE 108 mmol/L (98-107); CO2 26 mmol/L (21-32); CREATININE 0.6 mg/dL (0.55-1.3); GLUCOSE,RANDOM 99 mg/dL (74-106); POTASSIUM 3.8 mmol/L (3.5-5.1); SODIUM 142 mmol/L (136-145)
[2018-01-13] MEDS ORDERED: cefTAZidime PENTAHYDRATE 1 GM/50ML PRE-DOCKED (RESTRICTED TO ID) IVPB SCH (10:00)
--- NOTE | 2018-01-13 10:23 | PN ---
Progress Note, Physician Chief Complaint: patient seen and examined has dementia not able to answer my questions with appropriate answer admitted for seizures curently NPO - Current Medication List Current Medications: Active Medications Ceftriaxone Sodium 1 gm/ (Dextrose) 50 mls @ 100 mls/hr IVPB DAILY [facility]; Protocol Dextrose/Sodium Chloride (D5-1/2ns -) 1,000 mls @ 42 mls/hr IV ASDIR [facility] Last Admin: 01/13/18 03:39 Dose: 42 mls/hr Phenobarbital (Phenobarbital Injection -) 92 mg IVPB BID [facility] Last Admin: 01/12/18 23:55 Dose: 92 mg - Objective Vital Signs: Vital Signs Temperature 97.9 F 01/13/18 06:01 Pulse Rate 64 01/13/18 06:01 Respiratory Rate 18 01/13/18 06:01 Blood Pressure 107/59 01/13/18 06:01 O2 Sat by Pulse Oximetry (%) 96 01/13/18 06:19 Constitutional: Yes: Calm Cardiovascular: Yes: Regular Rate and Rhythm, S1, S2 Respiratory: Yes: CTA Bilaterally Gastrointestinal: Yes: Normal Bowel Sounds, Soft Edema: No Labs: CBC, BMP 01/13/18 09:20 01/13/18 09:20 Problem List - Problems (1) Seizure Assessment/Plan: NPO - iv fluids for now uyen lazo eval EEG ct head noted neurology eval pending seizure and fall precautions phenobarbital PT eval Code(s): R56.9 - UNSPECIFIED CONVULSIONS (2) Alzheimer disease Assessment/Plan: namenda and aricept Code(s): G30.9 - ALZHEIMER'S DISEASE, UNSPECIFIED; F02.80 - DEMENTIA IN OTH DISEASES CLASSD ELSWHR W/O BEHAVRL DISTURB (3) Asthma Assessment/Plan: controlled no flare albuterol prn Code(s): J45.909 - UNSPECIFIED ASTHMA, UNCOMPLICATED (4) HLD (hyperlipidemia) Assessment/Plan: statin Code(s): E78.5 - HYPERLIPIDEMIA, UNSPECIFIED (5) UTI (urinary tract infection) Assessment/Plan: Microbiology 01/12/18 12:45 Urine - Urine Clean Catch Urine Culture - Preliminary Lactose Fermenting Neg Bacilli iv rocephin Code(s): N39.0 - URINARY TRACT INFECTION, SITE NOT SPECIFIED
--- NOTE | 2018-01-13 10:38 | PN ---
Progress Note (short form) - Note Progress Note: ID consult dictated imp/reccd 67 yo female with dementia and seizure disorder admitted with seizure at home- last admitted for the same 2 months ago at bedside no fevers no chills eating well at home +urine culture agree with ceftriaxone neuro eval for seizure Problem List - Problems (1) Seizure Code(s): R56.9 - UNSPECIFIED CONVULSIONS (2) UTI (urinary tract infection) Code(s): N39.0 - URINARY TRACT INFECTION, SITE NOT SPECIFIED
[2018-01-13] MEDS ORDERED: cefTRIAXone SODIUM 1 GM VIAL ONE (10:52)
[2018-01-13] MEDS ORDERED: DEXTROSE 5%-WATER - 50 ML IVPB ONE (10:52)
[2018-01-13] MEDS: CEFTRIAXONE 1 GM in DEXTROSE 5%-WATER - 50 ML IVPB SCH (11:07)
[2018-01-13] MEDS: PHENobarbital SODIUM 65 MG/1 ML VIAL IVPB SCH ×2 (11:07→21:08)
--- NOTE | 2018-01-13 11:58 | CONSULT ---
Admitting History and Physical - Primary Care Physician PCP: Israel Maya - Admission History of Present Illness: 67 y/o woman with a past medical history of Seizure Disorder (on Phenobarbital) , Dementia, Alzheimer (non-verbal), HTN, HLD, Neurogenic Bladder. admitted following witnessed seizure activity at home. +urine culture This is my first consult with this pt. CT head (-). Post ictal. Pt alert, low volume unintelligible speech, euphoric, frequent laughter, elicited "Rolon" with precise articulation and good vocal quality. Pt's reports h/o communication deficits post seizures which has improved. Baseline, pt is verbal. 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 No: CHF Pulmonary: Yes: Asthma Renal/: Yes: Hematuria, Neurogenic Bladder, UTI - Smoking History Smoking history: Never smoked Have you smoked in the past 12 months: No - Alcohol/Substance Use Hx Alcohol Use: No History of Substance Use: reports: None - Social History ADL: Support Services History of Recent Travel: No History - Admission Reason For Visit: URINARY TRACT INFECTION, SEIZURE - Diagnostics X-ray: Report Reviewed CT Scan: Report Reviewed - General Mental Status: Awake and Alert, Confused (euphoric) Attention: Intact Head/Neck Control: Fair - Hearing Hearing: Normal Hearing Aide: No Speech Evaluation - Communication Primary Language: BULGARIAN Communication: Yes: Non-Communicable Oral Expression Ability: Yes: Severe Impairment - Speech Production Able to Make Needs Known: Yes: Severely Impaired Intelligibility: Yes: Severely Impaired - Speech Characteristics Voice Loudness: Severely Soft/Quiet (predominantly unintelligible. One clear word elicited upon repetition.) Speech Pattern: Impaired Speech Clarity: < 25% Articulation: Yes: Imprecise - Language/Auditory Comprehension Observation: Able to respond to yes/no queries: No - Language/Verbal Expression Able to Respond to Simple Queries: Yes: Severely Impaired Able to Communicate Wants and Needs: Yes: Severely Impaired Functional Communication Status: Yes: Severely Impaired - Swallow Evaluation/Bedside Assessment Current Nutritional Intake: NPO Oral Secretions: Yes: WFL Dentition: Yes: Adequate Facial Symmetry at Rest: Symmetrical Facial Symmetry on Retraction: Symmetrical Smile: Normal Lingual Movement: Normal, Symmetric Lingual Movement Strgth Against Opposition: Normal Lingual Movement Characteristics: Normal Rate of Intake: Slow/Holding (h/o oral holding with whole medication at home.) Bolus Size: Small Labial Seal: WFL Chewing: WFL Oral Prep Time: WFL A-P Transit: WFL Pocketing: None Timing of Swallow: Delayed Coughing/Throat Clear: No Change in Voice: No Recommendations - Speech Evaluation, Impression/Plan Impression: h/o oral holding with whole medication at home. Euphoric/laughter. Unintelligible jargon post ictal. Swallowing intact. Risk of choking, if laughter while eating. - Dysphagia Impressions/Plan Dysphagia Impressions: Minimal Impairment *Silent aspiration: cannot be R/O at bedside Dysphagia Treatment Plan: Small Bites, Chin Tuck/Down, Safe Rate, 1/2 tsp. at a time, Elevate HOB during feed - Recommendations Diet Consistency: Regular Medication Administration: Crushed with applesauce Liquids: Thin Liquids Supplement: Ensure
--- NOTE | 2018-01-13 16:48 | CONS ---
DATE OF CONSULTATION: 01/13/2018 HISTORY OF PRESENT ILLNESS: The patient is a 67-year-old woman with a past medical history of dementia and seizure disorder. She lives at home with her . She was last brought to the hospital about two months ago with a seizure. She again had a witnessed seizure yesterday morning and was brought to the emergency room. She had fecal and urinary incontinence. She takes phenobarbital at home. She had had no fever or chills at home, no vomiting or diarrhea. She was admitted for further evaluation. PAST MEDICAL HISTORY: Notable for Alzheimer disease, dementia, seizure disorder, hyperlipidemia, asthma, hematuria, neurogenic bladder, prior history of urinary tract infections. SOCIAL HISTORY: She lives at home with her . No history of cigarette, alcohol or substance abuse. FAMILY HISTORY: Not available. ALLERGIES: CIPROFLOXACIN. HOME MEDICATIONS: Aspirin, atorvastatin, oxybutynin, Lexapro, Protonix, memantine, naproxen, phenobarbital. REVIEW OF SYSTEMS: Unavailable from the patient. She has dementia. Per the , this is notable for seizures. PHYSICAL EXAMINATION: General: The patient's denied that the patient was having any fevers. He said she has been eating well at home. Vital Signs: Temperature 98.5, pulse 92, blood pressure 117/66, respiratory rate 18, saturating 98% on room air. HEENT: Normocephalic. Her eyes are anicteric. Neck: Supple. Lungs: Clear to auscultation. Heart: Regular rate and rhythm. Abdomen: Soft, nontender. No suprapubic discomfort. Extremities: Without edema. LABORATORY DATA: Labs are notable for a white count of 4.8. Hemoglobin is 12.2. Chemistries are normal. Urine culture is growing greater than 100,000 gram-negative rods. IMAGING: A head CT is negative. A chest x-ray is normal. IN SUMMARY: 1. This is a woman with recurrent seizures. Management is per primary service and Neurology. 2. Urinary tract infection. I would agree with ceftriaxone as her last urine culture had rock-sensitive Escherichia coli. Would follow up the culture and switch her to oral therapy when available. ADRIANA CHEEMA M.D. [id number]
--- NOTE | 2018-01-13 18:22 | CONSULT ---
Consult - text type - Consultation Consultation Note: NEUROLOGY CONSULTATION is greatly appreciated: Events reviewed and discussed with at the bedside who provides the history of this 67 yo RH woman with 5 children. PMH sig for HTN, cholesterol and progressive cognitive decline for at least 4-5 years and recurrent seizures x 4 years. describes Tonic-clonic seizures with incontinence and prolonged post- ictal confusion. On Phenobarbital 92 mg BID. Other meds include: atorvastatin, oxybutinin, zyrtec , lexapro, pantoprazole, albuterol, donepezil and Memantine. Pt is skilled nursing. HH Aide 9-1 x seven days. Wanders at night. No speech. Dependent on all ADL's and hasn't recognized her "in years." Now admitted with typical seizure and possible UTI, on ceftriaxone. + FH of dementia and seizures in her father (d 66 from [place]) who "had exactly the same thing" according to her . CT of head (reviewed): Moderate, diffuse, cerebral atrophy JERONIMO: No head trauma. No bruits. Hirsute. NEURO: Follows simple, repeated commands. Giggles and laughs but no useful speech + Glabella, snout CN II-XII: Full corona to threat. No facial. gag OK Motor: Moves all fours symmetrical. Playing with bedside medical equipment. Normal reflexes except AJ's. Toes downgoing. Coord: No obvious dystaxia. Sensory: Stands and balances well Gait: Stable. IMP: Severe B/L cerebral dysfunction (OMS/Chronic) C/W fairly advanced Alzheimer 's disease, possible Familial (autosomal dominant). Associated seizure disorder. SUGGEST: Continue antibiotics and hydration. Continue Phenobarbital 92 mp PO q 12 hrs. Add Levetiracetam 250 mg PO BID x 3 days then 500 mg PO BID Continue Donepezil 10 mg q AM and Memantine 10 mg BID Try Quetiapine 25 mg PO q HS D/C Oxybutinin, cirtrazine. Thank you very much, Chris Estrada MD
[2018-01-13] MEDS: ATORVASTATIN CA 10 MG TABLET (FP) PO SCH (21:08)
[2018-01-13] MEDS: levETIRAcetam 250 MG TABLET (FP) PO SCH (21:08)
[2018-01-14] MEDS: MEMANTINE HCL 10 MG TABLET (FP) PO SCH (08:09)
[2018-01-14 08:36] LABS: BASO % 0.6 % (0-2.0); EOS % 11.3 % (0-4.5); HEMATOCRIT 36.8 % (32.4-45.2); HEMOGLOBIN 11.9 GM/dL (10.7-15.3); LYMPH % 26.5 % (8-40); MCH 29.7 pg (25.7-33.7); MCHC 32.4 g/dl (32.0-36.0); MEAN CELL VOLUME 91.6 fl (80-96); MEAN PLT VOLUME 10.2 fl (7.5-11.1); MONO % 9.5 % (3.8-10.2); NEUT % 52.1 % (42.8-82.8); PLATELET COUNT 154 K/MM3 (134-434); RBC 4.01 M/mm3 (3.60-5.2); WHITE BLOOD COUNT 5.1 K/mm3 (4.0-10.0)
[2018-01-14 09:02] LABS: ALBUMIN 3.3 g/dl (3.4-5.0); ALK PHOS 113 U/L (45-117); ANION GAP 6 MMOL/L (8-16); BILIRUBIN,TOTAL 0.1 mg/dL (0.2-1); BLOOD UREA NITROGEN 18 mg/dL (7-18); CALCIUM 8.5 mg/dL (8.5-10.1); CHLORIDE 108 mmol/L (98-107); CHOLESTEROL 206 mg/dL (50-200); CO2 28 mmol/L (21-32); CREATININE 0.7 mg/dL (0.55-1.3); GLUCOSE,RANDOM 96 mg/dL (74-106); HDL CHOLESTEROL 97 mg/dL (40-60); POTASSIUM 3.7 mmol/L (3.5-5.1); SGOT/AST 22 U/L (15-37); SGPT/ALT 18 U/L (13-61); SODIUM 142 mmol/L (136-145); TOT PROT 6.6 g/dl (6.4-8.2); TRIGLYCERIDES 62 mg/dL (0-150)
[2018-01-14] MEDS ORDERED: DEXTROSE 5%-WATER - 50 ML IVPB ONE (09:52)
[2018-01-14] MEDS ORDERED: cefTRIAXone SODIUM 1 GM VIAL ONE (09:52)
[2018-01-14] MEDS: levETIRAcetam 250 MG TABLET (FP) PO SCH ×3 (09:56→21:26)
[2018-01-14] MEDS: CEFTRIAXONE 1 GM in DEXTROSE 5%-WATER - 50 ML IVPB SCH (09:57)
[2018-01-14] MEDS: PHENobarbital SODIUM 65 MG/1 ML VIAL IVPB SCH ×2 (10:00→21:27)
[2018-01-14] MEDS: DONEPEZIL HCL 10 MG TABLET (FP) PO SCH (10:46)
--- NOTE | 2018-01-14 11:58 | PN ---
Progress Note, Physician Chief Complaint: Seizure UTI History of Present Illness: NAD at bedside Seen by Neurology Started on keppra along with phenobarbital Seizure precipitated by acute UTI - Current Medication List Current Medications: Active Medications Atorvastatin Calcium (Lipitor -) 10 mg PO HS [facility] Last Admin: 01/13/18 21:08 Dose: 10 mg Donepezil HCl (Aricept -) 10 mg PO DAILY [facility] Last Admin: 01/14/18 10:46 Dose: 10 mg Ceftriaxone Sodium 1 gm/ (Dextrose) 50 mls @ 100 mls/hr IVPB DAILY [facility]; Protocol Last Admin: 01/14/18 09:57 Dose: 100 mls/hr Dextrose/Sodium Chloride (D5-1/2ns -) 1,000 mls @ 42 mls/hr IV ASDIR [facility] Last Admin: 01/13/18 03:39 Dose: 42 mls/hr Levetiracetam (Keppra -) 250 mg PO BID [facility] Last Admin: 01/14/18 10:48 Dose: Not Given Memantine (Namenda -) 10 mg PO DAILY@0800 [facility] Last Admin: 01/14/18 08:09 Dose: 10 mg Phenobarbital (Phenobarbital Injection -) 92 mg IVPB BID [facility] Last Admin: 01/14/18 10:00 Dose: 92 mg - Objective Vital Signs: Vital Signs Temperature 98.5 F 01/14/18 05:53 Pulse Rate 69 01/14/18 05:53 Respiratory Rate 18 01/14/18 05:53 Blood Pressure 115/64 01/14/18 05:53 O2 Sat by Pulse Oximetry (%) 98 01/14/18 05:39 Constitutional: Yes: Well Nourished, No Distress, Calm Cardiovascular: Yes: Regular Rate and Rhythm Gastrointestinal: Yes: Normal Bowel Sounds, Soft Musculoskeletal: Yes: Muscle Weakness Edema: No Peripheral Pulses WNL: Yes Neurological: Yes: Alert, Pre-Existing Deficit Psychiatric: Yes: Alert Labs: CBC, BMP 01/14/18 07:30 01/14/18 07:30 Problem List - Problems (1) Alzheimer disease Assessment/Plan: -will f/u with Neurology outpatient -On Namenda 10 mg po daily + aricept 10 mg po daily, continue Code(s): G30.9 - ALZHEIMER'S DISEASE, UNSPECIFIED; F02.80 - DEMENTIA IN OTH DISEASES CLASSD ELSWHR W/O BEHAVRL DISTURB (2) Seizure Assessment/Plan: -Seen by neurology -On phenobarbitol -precipitated by acute UTI -Added Keppra 250 mg po BID x 3 days then increase to 500 mg po BID Code(s): R56.9 - UNSPECIFIED CONVULSIONS (3) UTI (urinary tract infection) Assessment/Plan: -On IV rocephin -UC: Microbiology 01/12/18 12:45 Urine - Urine Clean Catch Urine Culture - Final Escherichia Coli -switch to po ceftin for 7 days Code(s): N39.0 - URINARY TRACT INFECTION, SITE NOT SPECIFIED Assessment/Plan see problem list walks at home with 1 person assistance Has help 9-1 on weekdays and 9-12 on weekends (7 days/week) is the primary caregiver
--- NOTE | 2018-01-14 12:11 | DS ---
Physical Examination Vital Signs: Vital Signs Temperature 98.5 F 01/14/18 05:53 Pulse Rate 69 01/14/18 05:53 Respiratory Rate 18 01/14/18 05:53 Blood Pressure 115/64 01/14/18 05:53 O2 Sat by Pulse Oximetry (%) 98 01/14/18 05:39 Findings/Remarks: This is a 67 y/o woman with a past medical history of Seizure Disorder (on Phenobarbital), Dementia, Alzheimer (non-verbal), HTN, HLD, Neurogenic Bladder. Who presents to the ED with witnessed seizure activity by the patient's spouse. Per the he witnessed seizure 0700 this AM. At baseline patient is nonverbal, does not follow commands, has fecal and urinary incontinence. Per patient's the patient's seizure looked exactly like her typical seizures with her arms extended and whole body shaking. She has seizures with a frequency of about 2 months since initial onset in 2013. The patient takes phenobarbitol 92 mg 2x a day. The reports that the patient has had increased episodes of bowel incontinence and he is concerned. The denies any recent illness, coughing, fevers,vomiting or diarrhea, blood in urine or stool. Constitutional: Yes: Well Nourished, No Distress, Calm Cardiovascular: Yes: Regular Rate and Rhythm Gastrointestinal: Yes: Normal Bowel Sounds, Soft Musculoskeletal: Yes: Muscle Weakness Extremities: Yes: WNL Edema: No Peripheral Pulses WNL: Yes Neurological: Yes: Alert, Oriented Psychiatric: Yes: Alert, Oriented Labs: CBC, BMP 01/14/18 07:30 01/14/18 07:30 Discharge Summary Reason For Visit: URINARY TRACT INFECTION, SEIZURE Current Active Problems Alzheimer disease (Acute) Asthma (Acute) HLD (hyperlipidemia) (Acute) HTN (hypertension) (Acute) Seizure (Acute) UTI (urinary tract infection) (Acute) Condition: Stable - Instructions Diet, Activity, Other Instructions: You were seen in the ED for complaints of seizure that was not different from regular seizures. In the ED you were evaluated with labwork and imaging. Your results were unremarkable. There does not appear to be an acute need for immediate hospitalization. You are advised to follow up with your primary care physician within 1 week. Return to the ED immediately if you experience worsening seizures, fevers, headache, loss of consciousness, blood in urine or stool, abdominal pain, chest pain or shortness of breath. Referrals: Israel Maya MD [Primary Care Provider] - Disposition: VNS/HOME HEALTH CARE - Home Medications Comprehensive Discharge Medication List: Ambulatory Orders Aspirin [Ecotrin] 81 mg PO DAILY 12/31/14 Atorvastatin Ca [Lipitor] 10 mg PO HS 01/21/17 Escitalopram Oxalate [Lexapro -] 10 mg PO DAILY 09/07/17 Pantoprazole Sodium [Protonix -] 40 mg PO DAILY tablet.ec 09/12/17 Albuterol Sulfate Inhaler - [Ventolin HFA Inhaler -] 1 - 2 inh PO Q4H PRN Naproxen Sodium [Naproxen Sodium ER] 500 mg PO BID 10/19/17 Phenobarbital 32.4 mg PO BID #60 tablet MDD 2 tablets 10/19/17 Phenobarbital 60 mg PO BID #60 tablet MDD 2 tablets 10/19/17 Cefuroxime Axetil [Cefuroxime] 500 mg PO BID #14 tablet 01/14/18 Memantine HCl 10 mg PO DAILY #30 tablet 01/14/18 levETIRAcetam [Keppra -] 250 mg PO BID #4 tablet 01/14/18
--- NOTE | 2018-01-14 12:49 | PN ---
Progress Note (short form) - Note Progress Note: awake and alert Vital Signs Period Temp Pulse Resp BP Sys/[place] Pulse Ox Last 24 Hr 97.3 F-98.5 F 69-92 18-18 115-127/64-70 98-98 cor-rrr lungs clear abd soft, nt ext no edema CBC, BMP 01/14/18 07:30 01/14/18 07:30 Microbiology 01/12/18 12:45 Urine - Urine Clean Catch Urine Culture - Final Escherichia Coli a/p recurrent seizures- adjust meds per neurology ecoli uti switch to po keflex for 5 more days please call back if needed Problem List - Problems (1) Seizure Code(s): R56.9 - UNSPECIFIED CONVULSIONS (2) UTI (urinary tract infection) Code(s): N39.0 - URINARY TRACT INFECTION, SITE NOT SPECIFIED
[2018-01-14] MEDS: ALBUTEROL SO4 0.083% IH SOL 2.5 MG/3 ML VIAL.NEB. NEB PRN ×2 (15:20→19:30)
[2018-01-14] MEDS: ASPIRIN COATED 81 MG TABLET.EC PO SCH (17:20)
[2018-01-14] MEDS: ATORVASTATIN CA 10 MG TABLET (FP) PO SCH (21:26)
--- NOTE | 2018-01-15 09:45 | PN ---
Progress Note, Physician Chief Complaint: Seizure UTI History of Present Illness: NAD at bedside Seen by Neurology Started on keppra along with phenobarbital Seizure precipitated by acute UTI -On PO abx - Current Medication List Current Medications: Active Medications Albuterol Sulfate (Ventolin 0.083% Nebulizer Soln -) 1 amp NEB Q4H PRN PRN Reason: SHORT OF BREATH/WHEEZING Last Admin: 01/14/18 19:30 Dose: 1 amp Aspirin (Ecotrin -) 81 mg PO DAILY [facility] Last Admin: 01/14/18 17:20 Dose: 81 mg Atorvastatin Calcium (Lipitor -) 10 mg PO HS [facility] Last Admin: 01/14/18 21:26 Dose: 10 mg Cephalexin HCl (Keflex -) 500 mg PO BID [facility] Donepezil HCl (Aricept -) 10 mg PO DAILY [facility] Last Admin: 01/14/18 10:46 Dose: 10 mg Dextrose/Sodium Chloride (D5-1/2ns -) 1,000 mls @ 42 mls/hr IV ASDIR [facility] Last Admin: 01/13/18 03:39 Dose: 42 mls/hr Levetiracetam (Keppra -) 250 mg PO BID [facility] Last Admin: 01/14/18 21:26 Dose: 250 mg Memantine (Namenda -) 10 mg PO DAILY@0800 [facility] Last Admin: 01/14/18 08:09 Dose: 10 mg Phenobarbital (Phenobarbital -) 90 mg PO BID [facility] - Objective Vital Signs: Vital Signs Temperature 98.2 F 01/15/18 05:50 Pulse Rate 64 01/15/18 05:50 Respiratory Rate 20 01/15/18 05:50 Blood Pressure 134/65 01/15/18 05:50 O2 Sat by Pulse Oximetry (%) 98 01/15/18 01:20 Constitutional: Yes: Well Nourished, No Distress, Calm Cardiovascular: Yes: Regular Rate and Rhythm Respiratory: Yes: Regular Musculoskeletal: Yes: WNL Extremities: Yes: WNL Neurological: Yes: Alert, Pre-Existing Deficit Psychiatric: Yes: Alert Labs: CBC, BMP 01/14/18 07:30 01/14/18 07:30 Problem List - Problems (1) Alzheimer disease Assessment/Plan: -will f/u with Neurology outpatient -On Namenda 10 mg po daily + aricept 10 mg po daily, continue Code(s): G30.9 - ALZHEIMER'S DISEASE, UNSPECIFIED; F02.80 - DEMENTIA IN OTH DISEASES CLASSD ELSWHR W/O BEHAVRL DISTURB (2) Seizure Assessment/Plan: -Seen by neurology -On phenobarbitol -precipitated by acute UTI -Added Keppra 250 mg po BID x 3 days then increase to 500 mg po BID Code(s): R56.9 - UNSPECIFIED CONVULSIONS (3) UTI (urinary tract infection) Assessment/Plan: -On IV rocephin -UC: Microbiology 01/12/18 12:45 Urine - Urine Clean Catch Urine Culture - Final Escherichia Coli -switch to po cephalexin for 7 days Code(s): N39.0 - URINARY TRACT INFECTION, SITE NOT SPECIFIED Assessment/Plan see problem list walks at home with 1 person assistance Has help 9-1 on weekdays and 9-12 on weekends (7 days/week) is the primary caregiver
[2018-01-15] MEDS ORDERED: CEPHALEXIN MONOHYDRATE 500 MG CAPSULE (UD) PO SCH (10:00)
[2018-01-15] MEDS ORDERED: CEFUROXIME AXETIL 500 MG TABLET PO SCH (10:00)
[2018-01-15] MEDS ORDERED: PHENobarbital 30 MG TABLET PO SCH (10:00)
[2018-01-15] MEDS: levETIRAcetam 250 MG TABLET (FP) PO SCH (11:04)
[2018-01-15] MEDS: ASPIRIN COATED 81 MG TABLET.EC PO SCH (11:05)
[2018-01-15] MEDS: MEMANTINE HCL 10 MG TABLET (FP) PO SCH (11:05)
[2018-01-15] MEDS: DONEPEZIL HCL 10 MG TABLET (FP) PO SCH (11:06)
[2018-01-15 11:57] VITALS: BP 113/68; PULSE 75; TEMP 98
== END 2018-01-15 14:30 | disposition home health service (06) ==
LOC: JER 07:54 → JERBED 13:25 → J6S 19:48
PROVIDERS: ADMIT Family Medicine; ATTEND Family Medicine
PROC: 3E03329 Introduction of Other Anti-infective into Peripheral Vein, Percutaneous Approach (ICD-10-PCS; principal; 2018-01-12)
PROC: 3E033GC Introduction of Other Therapeutic Substance into Peripheral Vein, Percutaneous Approach (ICD-10-PCS; 2018-01-12)
PROC: 3E0337Z Introduction of Electrolytic and Water Balance Substance into Peripheral Vein, Percutaneous Approach (ICD-10-PCS; 2018-01-12)
PROC: 3E0F7GC Introduction of Other Therapeutic Substance into Respiratory Tract, Via Natural or Artificial Opening (ICD-10-PCS; 2018-01-12)
DX: G40.89 Other seizures (principal); N39.0 Urinary tract infection, site not specified; I10 Essential (primary) hypertension; G30.9 Alzheimer's disease, unspecified; F02.80 Dementia in other diseases classified elsewhere, unspecified severity, without behavioral disturbance, psychotic disturbance, mood disturbance, and anxiety; E78.5 Hyperlipidemia, unspecified; J45.909 Unspecified asthma, uncomplicated; R15.9 Full incontinence of feces; N31.9 Neuromuscular dysfunction of bladder, unspecified; N39.498 Other specified urinary incontinence; Z87.440 Personal history of urinary (tract) infections; Z79.82 Long term (current) use of aspirin; Z88.1 Allergy status to other antibiotic agents
CPT/HCPCS: 36415; 70450-TC; 71045-TC-FY; 80048; 80053; 80061; 81003; 81015; 83721; 85025; 87086; 87186; 93005; 93010; 94640; 96365; 96375; 96376; 99282-25; G0378; J7030

== ENCOUNTER 2018-09-20 16:40 | Emergency (ER) | payer MEDICARE, OTHER | END 2018-09-20 17:39 | disposition home or self-care (01) | LOC: JERFT 16:40 ==

== ENCOUNTER 2018-11-25 05:31 | Emergency (ER) | payer MEDICARE, OTHER ==
[2018-11-25 06:10] VITALS: BMI 30.4
--- NOTE | 2018-11-25 06:11 | PDOC ---
History of Present Illness - General History Source: Spouse Exam Limitations: Dementia - History of Present Illness Initial Comments: 11/25/18 06:05 PCP: Dr. Maya Source: HPI: 68yo woman with PMH asthma, hyperlipidemia, alzheimers, fecal and urinary incontinence, and seizure disorder, on phenobarbital BIBEMS s/p witnessed seizure one hour ago. As per , he felt this shaking beside him and it woke him from sleep. She was in a reclined position and did not fall or have head trauma. Seizure lasted no more than 3-5 minutes. placed paper in her mouth to prevent her from biting her tongue however per EMS report, there was some blood on the paper as thy removed it. Seizure had ended by the time EMS arrived and they report the patient was sleepy but responsive to painful stimuli and gradually woke up while en route, glucose 114. says pt is still a bit sleepy (generally postictal for 20-30min) but is otherwise at her baseline with dementia and non-verbal. denies that the patient is experiencing any nausea, vomiting, diarrhea, or abdominal pain. No recent fevers, chills. He denies any chest pain or shortness of breath. He reports that she is not followed by neurology and that she is compliant with her medications. No anticoagulants. No new neuro deficits noticeable to the . Allergies: ciprofloxacin PMH: as above PSH: denies SHx: nonsmoker, no alcohol or drug use. <Deondre Doe - Last Filed: 11/25/18 07:13> <Fabiana Briggs - Last Filed: 11/26/18 00:47> - General Chief Complaint: Seizure Stated Complaint: SEIZURES Time Seen by Provider: 11/25/18 05:33 Past History - Travel Traveled outside of the country in the last 30 days: No Close contact w/someone who was outside of country & ill: No - Past Medical History Asthma: Yes COPD: No Dementia: Yes (Alzheimers) GI Disorders: Yes (H/O GALLSTONES/INCONTINENT OF STOOL) Disorders: Yes (HEMATURIA, incontinency) HTN: Yes Hypercholesterolemia: Yes Seizures: Yes - Immunization History Immunization Up to Date: No - Suicide/Smoking/Psychosocial Hx Smoking History: Never smoked Have you smoked in the past 12 months: No Hx Alcohol Use: No Drug/Substance Use Hx: No Substance Use Type: None Hx Substance Use Treatment: No <Deondre Doe - Last Filed: 11/25/18 07:13> <Fabiana Briggs - Last Filed: 11/26/18 00:47> - Past Medical History Allergies/Adverse Reactions: Allergies Allergy/AdvReac Type Severity Reaction Status Date / Time ciprofloxacin Allergy Intermediate Rash Verified 11/25/18 06:13 Home Medications: Ambulatory Orders Atorvastatin Ca [Lipitor] 10 mg PO HS 01/21/17 Escitalopram Oxalate [Lexapro -] 10 mg PO DAILY 09/07/17 Pantoprazole Sodium [Protonix -] 40 mg PO DAILY tablet.ec 09/12/17 Albuterol Sulfate Inhaler - [Ventolin HFA Inhaler -] 1 - 2 inh PO Q4H PRN Naproxen Sodium [Naproxen Sodium ER] 500 mg PO BID 10/19/17 Phenobarbital 32.4 mg PO BID #60 tablet MDD 2 tablets 10/19/17 Phenobarbital 60 mg PO BID #60 tablet MDD 2 tablets 10/19/17 Memantine HCl 10 mg PO DAILY #30 tablet 01/14/18 Cephalexin Monohydrate [Keflex -] 500 mg PO BID #14 capsule 01/15/18 Cephalexin Monohydrate [Keflex -] 500 mg PO BID 7 Days #14 capsule 11/25/18 Review of Systems - Review of Systems Able to Perform ROS?: No (demented, ROS per ) Is the patient limited Romansh proficient: Yes Constitutional: No: Fever, Night Sweats Respiratory: No: Cough, Shortness of Breath Cardiac (ROS): No: Chest Pain, Syncope, Chest Tightness ABD/GI: No: Constipated, Diarrhea, Poor Appetite, Poor Fluid Intake, Vomiting <Deondre Doe - Last Filed: 11/25/18 07:13> *Physical Exam - Physical Exam Comments: 11/25/18 06:20 Physical exam limited by patient cooperation / dementia Vitals: 112/64 75 97% 17 98.4 Gen: demented, nonverbal woman with closed eyes, smelling strongly of urine HEENT: eyes closed, mouth open for a split second - edentulous, some blood visualized, patient refused to open for further exam CV: RRR, nl s1/s2, no murmurs appreciated Pulm: CTABL, normal work of breathing, no wheezes / rales / rhonchi appreciated Abd: obese, soft, nontender, nondistended Pulses: 2+ radial and PT Neuro: patient noncooperative, MAEE, good strength, grossly intact cranial nerves <Deondre Doe - Last Filed: 11/25/18 07:13> - Vital Signs Last Vital Signs Temp Pulse Resp BP Pulse Ox 98.4 F 74 17 112/64 96 11/25/18 05:49 11/25/18 05:49 11/25/18 05:49 11/25/18 05:49 11/25/18 05:49 <Fabiana Briggs - Last Filed: 11/26/18 00:47> ED Treatment Course - LABORATORY CBC & Chemistry Diagram: 11/25/18 06:45 11/25/18 06:45 <Deondre Doe - Last Filed: 11/25/18 07:13> - LABORATORY CBC & Chemistry Diagram: 11/25/18 06:45 11/25/18 06:45 <Fabiana Briggs - Last Filed: 11/26/18 00:47> Medical Decision Making - Medical Decision Making 11/25/18 06:26 68yo woman with PMH asthma, hyperlipidemia, alzheimers, fecal and urinary incontinence, and seizure disorder, on phenobarbital BIBEMS s/p witnessed seizure one hour ago. Patient with stable vitals, exam notable for strong smelling urine, ROS limited by dementia and non-verbal. Plan for broad search for occult infection as possible cause of breakthrough seizure. No new neuro deficits per , no anticoagulants and no head trauma per - no need for NCHCT at this time. -CBC, CMP, Mg, Phos, Lactate, Cardiac Prof (for CK) -UA, UCx -CXR, EKG -Phenobarb level 11/25/18 07:13 Signed-out to Dr. Malin. <Deondre Doe - Last Filed: 11/25/18 07:13> *DC/Admit/Observation/Transfer <Deondre Doe - Last Filed: 11/25/18 07:13> <Fabiana Briggs - Last Filed: 11/26/18 00:47> Diagnosis at time of Disposition: UTI (urinary tract infection), Seizure, Alzheimer disease - Discharge Dispostion Disposition: HOME Condition at time of disposition: Improved - Prescriptions Prescriptions: Cephalexin Monohydrate [Keflex -] 500 mg PO BID 7 Days #14 capsule - Referrals Referrals: Richie Bryant MD [Staff Physician] - Chris Estrada MD [Staff Physician] - Kings Santillan MD [Staff Physician] - Israel Maya MD [Staff Physician] - - Patient Instructions Printed Discharge Instructions: DI for Seizure Disorder -- Adult, DI for Urinary Tract Infection (UTI) Additional Instructions: You were seen in the ER today for a seizure. The results of your labs and imaging today showed a urinary tract infection. Please follow-up with your primary care doctor and neurology within 1-2 days to discuss your visit and make sure your symptoms have improved. Please return to the ER if you have any worsening pain, development of fevers or chills, loss of consciousness, inability to tolerate food or fluids, or any other concerns. I have sent medications to your pharmacy. Please take these medications as prescribed.
--- NOTE | 2018-11-25 06:43 | PDOC ---
Attending Attestation - Resident Resident Name: Deondre Doe - ED Attending Attestation I have performed the following: I have examined & evaluated the patient, I agree w/resident's findings & plan - HPI HPI: 11/25/18 06:42 Pt comes with emile at home. witnessed it. It was her usual. - Physicial Exam PE: 11/25/18 06:43 Agree with resident exam. - Medical Decision Making 11/25/18 06:43 Labs and imaging as needed. 11/25/18 06:54 Pt will be signed out to the day ER team.
[2018-11-25 07:01] LABS: BASO % 0.4 % (0-2.0); EOS % 8.5 % (0-4.5); HEMOGLOBIN 11.8 GM/dL (10.7-15.3); LYMPH % 18.3 % (8-40); MCH 31.6 pg (25.7-33.7); MCHC 33.6 g/dl (32.0-36.0); MEAN CELL VOLUME 93.9 fl (80-96); MONO % 6.1 % (3.8-10.2); NEUT % 66.7 % (42.8-82.8); PLATELET COUNT 215 K/MM3 (134-434); RBC 3.73 M/mm3 (3.60-5.2); RDW 14.4 % (11.6-15.6); WHITE BLOOD COUNT 7.3 K/mm3 (4.0-10.0)
[2018-11-25 07:04] LABS: EPI CELLS 3.9 /HPF (0-5/HPF); HYALINE CASTS 2 /lpf (0-8); URINE APPEARANCE CLEAR; URINE BACTERIA 4157.2 /hpf (NEGATIVE); URINE BILIRUBIN NEGATIVE (NEGATIVE); URINE COLOR YELLOW; URINE GLUCOSE (UA) NEGATIVE (NEGATIVE); URINE KETONE NEGATIVE (NEGATIVE); URINE LEUK ESTERASE 1+ (NEGATIVE); URINE NITRITE POSITIVE (NEGATIVE); URINE PROTEIN NEGATIVE (NEGATIVE); URINE RBC 11 /hpf (0-4); URINE UROBILINOGEN 0.2 mg/dL (0.2-1.0); URINE WBC 10 /hpf (0-5)
--- NOTE | 2018-11-25 07:24 | PDOC ---
*Physical Exam - Vital Signs Last Vital Signs Temp Pulse Resp BP Pulse Ox 98.4 F 74 17 112/64 96 11/25/18 05:49 11/25/18 05:49 11/25/18 05:49 11/25/18 05:49 11/25/18 05:49 ED Treatment Course - LABORATORY CBC & Chemistry Diagram: 11/25/18 06:45 11/25/18 06:45 - ADDITIONAL ORDERS Additional order review: Laboratory Results 11/25/18 11/25/18 11/25/18 06:45 06:45 06:45 Phosphorus Cancelled Magnesium Cancelled Creatine Kinase Cancelled Troponin I Cancelled Urine Color Urine Appearance Urine pH Ur Specific [place] Urine Protein Urine Glucose (UA) Urine Ketones Urine Blood Urine Nitrite Urine Bilirubin Urine Urobilinogen Ur Leukocyte Esterase Urine WBC (Auto) Urine RBC (Auto) Urine Casts (Auto) U Epithel Cells (Auto) Urine Bacteria (Auto) 11/25/18 06:45 Phosphorus Magnesium Creatine Kinase Troponin I Urine Color Yellow Urine Appearance Clear Urine pH 7.0 Ur Specific [place] 1.012 Urine Protein Negative Urine Glucose (UA) Negative Urine Ketones Negative Urine Blood 2+ H Urine Nitrite Positive H Urine Bilirubin Negative Urine Urobilinogen 0.2 Ur Leukocyte Esterase 1+ H Urine WBC (Auto) 10 Urine RBC (Auto) 11 Urine Casts (Auto) 2 U Epithel Cells (Auto) 3.9 Urine Bacteria (Auto) 4157.2 11/25/18 06:45 RBC 3.73 MCV 93.9 MCHC 33.6 RDW 14.4 MPV 9.0 D Neutrophils % 66.7 D Lymphocytes % 18.3 D Monocytes % 6.1 Eosinophils % 8.5 H Basophils % 0.4 Medical Decision Making - Medical Decision Making Pt was signed out to me by resident Dr. Doe, who explained the presentation , ED course, any pending results, and needed interventions. Pending results include CBC, CMP, UA, chest x-ray. Pt is currently stable and is lying comfortably. Pt is post-ictal but starting to awake and interacting with . CBC showed no increased WBC UA showed nitrite positive UTI -- will treat with abx (prior cultures have been rock-sensitive). 11/25/18 07:19 Chest x-ray with mild atelectasis at L base. No focal consolidation noted. Pt has had no recent cough or URI symptoms. CMP WNL except mild dehydration (mild increase BUN) -- providing pt dose of IV ceftriaxone and 500 mL IV NS 11/25/18 07:50 Pt awake and interacting with . Pt can be discharged to home with follow-up. Pt advised to follow-up with PCP in 1-2 days and has been referred to Neurology. Strict return precautions provided with pt understanding. Sent abx to pt pharmacy for UTI. 11/25/18 09:04 *DC/Admit/Observation/Transfer Diagnosis at time of Disposition: Seizure UTI (urinary tract infection) Qualifiers: Urinary tract infection type: site unspecified Hematuria presence: with hematuria Qualified Code(s): N39.0 - Urinary tract infection, site not specified ; R31.9 - Hematuria, unspecified Alzheimer disease Qualifiers: Alzheimer's disease onset: unspecified onset Dementia behavioral disturbance: without behavioral disturbance Qualified Code(s): G30.9 - Alzheimer's disease, unspecified; F02.80 - Dementia in other diseases classified elsewhere without behavioral disturbance - Discharge Dispostion Disposition: HOME Condition at time of disposition: Improved Decision to Admit order: No - Prescriptions Prescriptions: Cephalexin Monohydrate [Keflex -] 500 mg PO BID 7 Days #14 capsule - Referrals Referrals: Israel Maya MD [Staff Physician] - Richie Bryant MD [Staff Physician] - Chris Estrada MD [Staff Physician] - Kings Santillan MD [Staff Physician] - - Patient Instructions Printed Discharge Instructions: DI for Seizure Disorder -- Adult, DI for Urinary Tract Infection (UTI) Additional Instructions: You were seen in the ER today for a seizure. The results of your labs and imaging today showed a urinary tract infection. Please follow-up with your primary care doctor and neurology within 1-2 days to discuss your visit and make sure your symptoms have improved. Please return to the ER if you have any worsening pain, development of fevers or chills, loss of consciousness, inability to tolerate food or fluids, or any other concerns. I have sent medications to your pharmacy. Please take these medications as prescribed. - Post Discharge Activity
[2018-11-25] MEDS ORDERED: CEFTRIAXONE 1 GM in DEXTROSE 5%-WATER - 100 ML IVPB ONE (07:30)
[2018-11-25 07:39] LABS: ALBUMIN 3.6 g/dl (3.4-5.0); ALK PHOS 112 U/L (45-117); ANION GAP 8 MMOL/L (8-16); BILIRUBIN,TOTAL 0.2 mg/dL (0.2-1); BLOOD UREA NITROGEN 21.3 mg/dL (7-18); CALCIUM 8.6 mg/dL (8.5-10.1); CHLORIDE 107 mmol/L (98-107); CO2 29 mmol/L (21-32); CREATININE 0.7 mg/dL (0.55-1.3); GLUCOSE,RANDOM 105 mg/dL (74-106); MAGNESIUM 2.2 mg/dL (1.8-2.4); PHOSPHOROUS 2.8 mg/dL (2.5-4.9); POTASSIUM 3.5 mmol/L (3.5-5.1); SGOT/AST 15 U/L (15-37); SGPT/ALT 16 U/L (13-61); SODIUM 144 mmol/L (136-145); TOT PROT 6.8 g/dl (6.4-8.2)
[2018-11-25] MEDS ORDERED: SODIUM CHLORIDE 500 ML IV STA (07:43)
[2018-11-25] MEDS ORDERED: CEFTRIAXONE 1 GM/50 ML BAG ONE (07:53)
[2018-11-25 09:29] VITALS: BP 111/54
[2018-11-25 10:00] VITALS: PULSE 70; TEMP 97.8
--- NOTE | 2018-11-26 09:05 | EKG ---
Test Reason : Blood Pressure : / mmHG Vent. Rate : 078 BPM Atrial Rate : 078 BPM P-R Int : 174 ms QRS Dur : 078 ms QT Int : 374 ms P-R-T Axes : 068 029 019 degrees QTc Int : 426 ms NORMAL SINUS RHYTHM NORMAL ECG WHEN COMPARED WITH ECG OF 12-JAN-2018 09:59, NO SIGNIFICANT CHANGE WAS FOUND Confirmed by LYNETTE SOLORIO MD ([id number]) on 11/26/2018 9:05:02 AM Referred By: Confirmed By:LYNETTE SOLORIO MD
== END 2018-11-25 10:00 | disposition home or self-care (01) ==
LOC: JER 05:31
PROC: 3E0337Z Introduction of Electrolytic and Water Balance Substance into Peripheral Vein, Percutaneous Approach (ICD-10-PCS; principal; 2018-11-25)
PROC: 3E03329 Introduction of Other Anti-infective into Peripheral Vein, Percutaneous Approach (ICD-10-PCS; 2018-11-25)
DX: G40.909 Epilepsy, unspecified, not intractable, without status epilepticus (principal); N39.0 Urinary tract infection, site not specified; R31.9 Hematuria, unspecified; J45.909 Unspecified asthma, uncomplicated; E78.5 Hyperlipidemia, unspecified; G30.8 Other Alzheimer's disease; F02.80 Dementia in other diseases classified elsewhere, unspecified severity, without behavioral disturbance, psychotic disturbance, mood disturbance, and anxiety; R15.9 Full incontinence of feces; R32 Unspecified urinary incontinence
CPT/HCPCS: 36415; 71045-TC-FY; 80053; 80184; 81003; 82550; 83605; 83735; 84100; 84484; 85025; 87086; 87186; 93005; 93010; 96361; 96365; 99284-25; J7030

== ENCOUNTER 2018-12-24 04:59 | Inpatient (IN) | payer MEDICARE, OTHER ==
[2018-12-24 05:04] VITALS: BMI 31.6
--- NOTE | 2018-12-24 06:02 | PDOC ---
History of Present Illness - General Chief Complaint: Seizure Stated Complaint: SEIZURE Time Seen by Provider: 12/24/18 05:19 - History of Present Illness Initial Comments: 12/24/18 06:06 68yo woman with PMH asthma, hyperlipidemia, alzheimers, fecal and urinary incontinence, and seizure disorder, on phenobarbital BIBEMS s/p witnessed seizure one hour ago prior to presentation. Per the , she lives with him. He handles her medications and she has been compliant. The seizure occurred while she was lying in bed and denies head trauma. Was at baseline prior to the seizure. At baseline, she is non verbal and does not follow commands. 12/24/18 07:07 Past History - Past Medical History Allergies/Adverse Reactions: Allergies Allergy/AdvReac Type Severity Reaction Status Date / Time ciprofloxacin Allergy Intermediate Rash Verified 12/24/18 05:04 Home Medications: Ambulatory Orders Atorvastatin Ca [Lipitor] 10 mg PO HS 01/21/17 Escitalopram Oxalate [Lexapro -] 10 mg PO DAILY 09/07/17 Pantoprazole Sodium [Protonix -] 40 mg PO DAILY tablet.ec 09/12/17 Albuterol Sulfate Inhaler - [Ventolin HFA Inhaler -] 1 - 2 inh PO Q4H PRN Naproxen Sodium [Naproxen Sodium ER] 500 mg PO BID 10/19/17 Phenobarbital 60 mg PO BID #60 tablet MDD 2 tablets 10/19/17 Aspirin 81 DAILY 12/24/18 Memantine HCl [Namenda -] 10 mg PO DAILY #30 tablet 12/27/18 Phenobarbital - 30 mg PO BID #60 tablet MDD 2 12/27/18 levETIRAcetam [Keppra -] 500 mg PO BID #60 tablet 12/27/18 Asthma: Yes COPD: No Dementia: Yes (Alzheimers) GI Disorders: Yes (H/O GALLSTONES/INCONTINENT OF STOOL) Disorders: Yes (HEMATURIA, incontinency) HTN: Yes Hypercholesterolemia: Yes Seizures: Yes - Immunization History Immunization Up to Date: No - Suicide/Smoking/Psychosocial Hx Smoking History: Never smoked Have you smoked in the past 12 months: No Hx Alcohol Use: No Drug/Substance Use Hx: No Substance Use Type: None Hx Substance Use Treatment: No Review of Systems - Review of Systems Able to Perform ROS?: No (Dementia, non verbal) *Physical Exam - Vital Signs Last Vital Signs Temp Pulse Resp BP Pulse Ox 98.0 F 74 14 98/45 L 98 12/24/18 05:03 12/24/18 05:03 12/24/18 05:03 12/24/18 05:03 12/24/18 05:03 - Physical Exam General Appearance: Yes: Nourished, Appropriately Dressed. No: Apparent Distress, Intoxicated HEENT: positive: EOMI, CECELIA, Symmetrical, Pharynx Normal. negative: Pale Conjunctivae, Scleral Icterus (R), Scleral Icterus (L), Pharyngeal Erythema, Tonsillar Exudate, Nasal Congestion, Rhinorrhea Neck: positive: Trachea midline, Supple. negative: Tender, Lymphadenopathy (R) , Lymphadenopathy (L), Tender lateral, Tender midline Respiratory/Chest: positive: Lungs Clear, Normal Breath Sounds. negative: Chest Tender, Respiratory Distress, Accessory Muscle Use Cardiovascular: positive: Regular Rhythm, Regular Rate, S1, S2. negative: Systolic Murmur Gastrointestinal/Abdominal: positive: Normal Bowel Sounds, Flat, Soft. negative : Tender Lymphatic: negative: Adenopathy Musculoskeletal: positive: Normal Inspection. negative: CVA Tenderness, Vertebral Tenderness Extremity: positive: Normal Capillary Refill, Normal Inspection, Normal Range of Motion. negative: Tender Integumentary: positive: Normal Color, Dry, Warm Neurologic: positive: Other (arousable) ED Treatment Course - LABORATORY CBC & Chemistry Diagram: 12/28/18 08:00 12/28/18 08:00 Medical Decision Making - Medical Decision Making 68yo woman with PMH asthma, hyperlipidemia, alzheimers, fecal and urinary incontinence, and seizure disorder, on phenobarbital BIBEMS s/p witnessed seizure one hour ago prior to presentation. Initial vitals: Initial Vital Signs Temp Pulse Resp BP Pulse Ox 98.0 F 74 14 98/45 L 98 12/24/18 05:03 12/24/18 05:03 12/24/18 05:03 12/24/18 05:03 12/24/18 05:03 work up: ddx: non adherence of medication vs infectious etiology. per the , he gives her the medication, thus unlikely to be a medication non compliance. she has been to [facility] multiple times for UTIs likely secondary to her stool incontinence causing e coli UTI. during the examination, the patient had significant amounts of stool in her diaper. likely has a UTI. will obtain labs and levels. Laboratory Tests 12/24/18 12/24/18 12/24/18 06:25 06:25 06:25 WBC 6.6 RBC 3.84 Hgb 12.2 Hct 36.2 MCV 94.2 MCH 31.8 MCHC 33.7 RDW 14.2 Plt Count 208 MPV 9.3 Absolute Neuts (auto) 3.5 Neutrophils % 52.6 D Lymphocytes % 26.1 D Monocytes % 10.1 Eosinophils % 10.2 H Basophils % 1.0 Nucleated RBC % 0 Sodium 143 Potassium 3.7 Chloride 107 Carbon Dioxide 31 Anion Gap 5 L BUN 17.2 Creatinine 0.8 Est GFR (CKD-EPI)AfAm 88.42 Est GFR (CKD-EPI)NonAf 76.29 Random Glucose 91 Lactic Acid 1.9 Calcium 9.1 Phosphorus 3.2 Magnesium 2.5 H Total Bilirubin 0.2 AST 18 ALT 17 Alkaline Phosphatase 112 Creatine Kinase 100 Troponin I < 0.02 Total Protein 7.0 Albumin 3.7 Urine Color Urine Appearance Urine pH Ur Specific [place] Urine Protein Urine Glucose (UA) Urine Ketones Urine Blood Urine Nitrite Urine Bilirubin Urine Urobilinogen Ur Leukocyte Esterase Urine WBC (Auto) Urine RBC (Auto) Urine Casts (Auto) U Epithel Cells (Auto) Urine Bacteria (Auto) Phenobarbital 12/24/18 12/24/18 06:25 07:55 WBC RBC Hgb Hct MCV MCH MCHC RDW Plt Count MPV Absolute Neuts (auto) Neutrophils % Lymphocytes % Monocytes % Eosinophils % Basophils % Nucleated RBC % Sodium Potassium Chloride Carbon Dioxide Anion Gap BUN Creatinine Est GFR (CKD-EPI)AfAm Est GFR (CKD-EPI)NonAf Random Glucose Lactic Acid Calcium Phosphorus Magnesium Total Bilirubin AST ALT Alkaline Phosphatase Creatine Kinase Troponin I Total Protein Albumin Urine Color Yellow Urine Appearance Clear Urine pH 8.5 H D Ur Specific [place] 1.015 Urine Protein Trace Urine Glucose (UA) Negative Urine Ketones Negative Urine Blood 3+ H Urine Nitrite Positive Urine Bilirubin Negative Urine Urobilinogen 0.2 Ur Leukocyte Esterase 1+ H Urine WBC (Auto) 11.9 Urine RBC (Auto) 54.1 Urine Casts (Auto) None seen U Epithel Cells (Auto) 76.9 Urine Bacteria (Auto) 4876.4 Phenobarbital 29 UA positive for UTI. patient was signed out to Dr. Mcfadden. *DC/Admit/Observation/Transfer Diagnosis at time of Disposition: UTI (urinary tract infection), Seizure - Discharge Dispostion Disposition: VNS/HOME HEALTH CARE - Referrals - Patient Instructions - Post Discharge Activity
--- NOTE | 2018-12-24 06:35 | PDOC ---
Attending Attestation - Resident Resident Name: BrianFeliz - ED Attending Attestation I have performed the following: I have examined & evaluated the patient, The case was reviewed & discussed with the resident, I agree w/resident's findings & plan - HPI HPI: 12/24/18 07:09 Pt was shaking; she had her usual seizure, as per . 12/24/18 07:11 Pt is incontinent of stool and she has recurrent UTIs - Physicial Exam PE: 12/24/18 07:10 Agree with resident exam Pt has no fever. She is demented and sleeping. She is arousable. Pt has soft NT ND abd. No leg swelling. - Medical Decision Making 12/24/18 07:11 Pt will be signed out to the day team. Her labs are pending. UA pending. wants to take her home if possible. Pt has a HHAide x 9 hrs daily.
[2018-12-24 06:53] LABS: EOS % 10.2 % (0-4.5); HEMATOCRIT 36.2 % (32.4-45.2); HEMOGLOBIN 12.2 GM/dL (10.7-15.3); LYMPH % 26.1 % (8-40); MCH 31.8 pg (25.7-33.7); MCHC 33.7 g/dl (32.0-36.0); MEAN CELL VOLUME 94.2 fl (80-96); MEAN PLT VOLUME 9.3 fl (7.5-11.1); MONO % 10.1 % (3.8-10.2); NEUT % 52.6 % (42.8-82.8); PLATELET COUNT 208 K/MM3 (134-434); RBC 3.84 M/mm3 (3.60-5.2); RDW 14.2 % (11.6-15.6); WHITE BLOOD COUNT 6.6 K/mm3 (4.0-10.0)
[2018-12-24] MEDS ORDERED: SODIUM CHLORIDE 0.9% 500 ML INFUS.BAG IV ONE (07:12)
[2018-12-24 07:21] LABS: ALBUMIN 3.7 g/dl (3.4-5.0); ALK PHOS 112 U/L (45-117); ANION GAP 5 MMOL/L (8-16); BILIRUBIN,TOTAL 0.2 mg/dL (0.2-1); BLOOD UREA NITROGEN 17.2 mg/dL (7-18); CALCIUM 9.1 mg/dL (8.5-10.1); CHLORIDE 107 mmol/L (98-107); CO2 31 mmol/L (21-32); CREATININE 0.8 mg/dL (0.55-1.3); GLUCOSE,RANDOM 91 mg/dL (74-106); MAGNESIUM 2.5 mg/dL (1.8-2.4); PHOSPHOROUS 3.2 mg/dL (2.5-4.9); POTASSIUM 3.7 mmol/L (3.5-5.1); SGOT/AST 18 U/L (15-37); SGPT/ALT 17 U/L (13-61); SODIUM 143 mmol/L (136-145)
--- NOTE | 2018-12-24 07:24 | PDOC ---
*Physical Exam - Vital Signs Last Vital Signs Temp Pulse Resp BP Pulse Ox 98.0 F 74 14 98/45 L 98 12/24/18 05:03 12/24/18 05:03 12/24/18 05:03 12/24/18 05:03 12/24/18 05:03 - Physical Exam Comments: 12/24/18 08:16 Gen: awake, demented, nonverbal, at baseline ms heart: +s1s2 reg lungs: cta b/l, poor inspiratory effort abd: soft, nt/nd +bs ext: no c/c/e neuro: at baseline ms, moves all extremities, no new focal deficits, nonverbal, no seizure activity in the ED ED Treatment Course - LABORATORY CBC & Chemistry Diagram: 12/24/18 06:25 12/24/18 06:25 - ADDITIONAL ORDERS Additional order review: Laboratory Results 12/24/18 12/24/18 06:25 06:25 Sodium 143 Potassium 3.7 Chloride 107 Carbon Dioxide 31 Anion Gap 5 L BUN 17.2 Creatinine 0.8 Est GFR (CKD-EPI)AfAm 88.42 Est GFR (CKD-EPI)NonAf 76.29 Random Glucose 91 Lactic Acid 1.9 Calcium 9.1 Phosphorus 3.2 Magnesium 2.5 H Total Bilirubin 0.2 AST 18 ALT 17 Alkaline Phosphatase 112 Creatine Kinase 100 Troponin I < 0.02 Total Protein 7.0 Albumin 3.7 12/24/18 06:25 RBC 3.84 MCV 94.2 MCHC 33.7 RDW 14.2 MPV 9.3 Neutrophils % 52.6 D Lymphocytes % 26.1 D Monocytes % 10.1 Eosinophils % 10.2 H Basophils % 1.0 Medical Decision Making - Medical Decision Making 12/24/18 07:23 a/p: 68yo female with hx of seizures with seizure activity this am -currently at baseline -signed out by the nightteam pending labs, ua, cxr 12/24/18 08:18 labs reviewed +uti last culture was + ecoli rock sensitive, will start rocephin no seizure activity bp improved - 143 systolic 12/24/18 08:22 updated call placed to Dr. Maya for admission for uti and seizure 12/24/18 09:39 resident discussed the case with Dr. Young who accepts pt to service *DC/Admit/Observation/Transfer Diagnosis at time of Disposition: UTI (urinary tract infection), Seizure - Discharge Dispostion Condition at time of disposition: Fair Decision to Admit order: Yes - Referrals - Patient Instructions - Post Discharge Activity
[2018-12-24 08:09] LABS: PH,URINE 8.5 (5.0-8.0); URINE APPEARANCE Clear; URINE BILIRUBIN Negative (NEGATIVE); URINE COLOR Yellow; URINE GLUCOSE (UA) Negative (NEGATIVE); URINE KETONE Negative (NEGATIVE); URINE LEUK ESTERASE 1+ (NEGATIVE); URINE NITRITE Positive (NEGATIVE); URINE PROTEIN Trace (NEGATIVE); URINE UROBILINOGEN 0.2 mg/dL (0.2-1.0)
[2018-12-24] MEDS ORDERED: CEFTRIAXONE 1 GM in DEXTROSE 5%-WATER - 100 ML IVPB ONE (08:16)
--- NOTE | 2018-12-24 08:26 | PDOC ---
*Physical Exam - Vital Signs Last Vital Signs Temp Pulse Resp BP Pulse Ox 98.0 F 74 14 98/45 L 98 12/24/18 05:03 12/24/18 05:03 12/24/18 05:03 12/24/18 05:03 12/24/18 05:03 - Physical Exam Respiratory/Chest: positive: Lungs Clear, Other (poor inspiratory effort ) Cardiovascular: positive: Regular Rhythm, Regular Rate, S1, S2 Gastrointestinal/Abdominal: positive: Normal Bowel Sounds, Soft Extremity: positive: Normal Capillary Refill Integumentary: positive: Dry ED Treatment Course - LABORATORY CBC & Chemistry Diagram: 12/24/18 06:25 12/24/18 06:25 - ADDITIONAL ORDERS Additional order review: Laboratory Results 12/24/18 12/24/18 12/24/18 07:55 06:25 06:25 Sodium 143 Potassium 3.7 Chloride 107 Carbon Dioxide 31 Anion Gap 5 L BUN 17.2 Creatinine 0.8 Est GFR (CKD-EPI)AfAm 88.42 Est GFR (CKD-EPI)NonAf 76.29 Random Glucose 91 Lactic Acid 1.9 Calcium 9.1 Phosphorus 3.2 Magnesium 2.5 H Total Bilirubin 0.2 AST 18 ALT 17 Alkaline Phosphatase 112 Creatine Kinase 100 Troponin I < 0.02 Total Protein 7.0 Albumin 3.7 Urine Color Yellow Urine Appearance Clear Urine pH 8.5 H D Ur Specific [place] 1.015 Urine Protein Trace Urine Glucose (UA) Negative Urine Ketones Negative Urine Blood 3+ H Urine Nitrite Positive Urine Bilirubin Negative Urine Urobilinogen 0.2 Ur Leukocyte Esterase 1+ H 12/24/18 06:25 RBC 3.84 MCV 94.2 MCHC 33.7 RDW 14.2 MPV 9.3 Neutrophils % 52.6 D Lymphocytes % 26.1 D Monocytes % 10.1 Eosinophils % 10.2 H Basophils % 1.0 Medical Decision Making - Medical Decision Making 12/24/18 08:25 68 y/o/f here for a seizure that occurred this morning. Patient is nonverbal at baseline, hx of dementia patient signed out by night time as per , patient is at baseline but has been sleeping more often at home CBC, CMP grossly normal CXR - There is some minimal pleural reaction and atelectasis at the left base. The left upper lobe and right lung are clear. UA - positive for nitrites and leukocyte esterase. Patient was diagnosed with UTI 3 weeks and treated, positive for UTI again today. Started on Rocephin. Will speak with Dr. Maya for admission. Patient BP improved - 148/103 12/24/18 09:[address] Young. Will admit patient to med/surg. *DC/Admit/Observation/Transfer Diagnosis at time of Disposition: UTI (urinary tract infection), Seizure - Discharge Dispostion Condition at time of disposition: Fair Decision to Admit order: Yes - Referrals Referrals: Israel Maya MD [Primary Care Provider] - - Patient Instructions - Post Discharge Activity
[2018-12-24] MEDS ORDERED: CEFTRIAXONE 1 GM/50 ML BAG ONE (08:29)
--- NOTE | 2018-12-24 09:36 | EKG ---
Test Reason : Blood Pressure : / mmHG Vent. Rate : 069 BPM Atrial Rate : 069 BPM P-R Int : 168 ms QRS Dur : 080 ms QT Int : 400 ms P-R-T Axes : 067 032 042 degrees QTc Int : 428 ms NORMAL SINUS RHYTHM NORMAL ECG WHEN COMPARED WITH ECG OF 25-NOV-2018 07:13, NO SIGNIFICANT CHANGE WAS FOUND Confirmed by EDNA VIRGEN MD ([id number]) on 12/24/2018 9:36:11 AM Referred By: Chaya WALLACE Confirmed By:EDNA VIRGEN MD
[2018-12-24 10:59] LABS: EPI CELLS 76.9 /HPF (0-5/HPF); HYALINE CASTS NONE SEEN /lpf (0-8); URINE RBC 54.1 /hpf (0-4); URINE WBC 11.9 /hpf (0-5)
[2018-12-24 11:00] LABS: URINE BACTERIA 4876.4 /hpf (NEGATIVE)
--- NOTE | 2018-12-24 11:14 | HP ---
Admitting History and Physical - Admission History of Present Illness: 68 y/o/f here for a seizure that occurred this morning. Patient is nonverbal at baseline, hx of dementia patient signed out by night time as per , patient is at baseline but has been sleeping more often at home - Past Medical History [employer]: Yes: Alzheimer's, Dementia, Seizure Cardiovascular: Yes: Hyperlipdemia. No: CHF Pulmonary: Yes: Asthma Renal/: Yes: Hematuria, Neurogenic Bladder, UTI - Smoking History Smoking history: Never smoked Have you smoked in the past 12 months: No - Alcohol/Substance Use Hx Alcohol Use: No History of Substance Use: reports: None - Social History ADL: Support Services History of Recent Travel: No Home Medications - Allergies Allergies/Adverse Reactions: Allergies Allergy/AdvReac Type Severity Reaction Status Date / Time ciprofloxacin Allergy Intermediate Rash Verified 12/24/18 05:04 - Home Medications Home Medications: Ambulatory Orders Atorvastatin Ca [Lipitor] 10 mg PO HS 01/21/17 Escitalopram Oxalate [Lexapro -] 10 mg PO DAILY 09/07/17 Pantoprazole Sodium [Protonix -] 40 mg PO DAILY tablet.ec 09/12/17 Albuterol Sulfate Inhaler - [Ventolin HFA Inhaler -] 1 - 2 inh PO Q4H PRN Naproxen Sodium [Naproxen Sodium ER] 500 mg PO BID 10/19/17 Phenobarbital 32.4 mg PO BID #60 tablet MDD 2 tablets 10/19/17 Phenobarbital 60 mg PO BID #60 tablet MDD 2 tablets 10/19/17 Memantine HCl 10 mg PO DAILY #30 tablet 01/14/18 Cephalexin Monohydrate [Keflex -] 500 mg PO BID #14 capsule 01/15/18 Aspirin 81 DAILY 12/24/18 Physical Examination Vital Signs: Vital Signs Temperature 98.1 F 12/24/18 08:22 Pulse Rate 82 12/24/18 08:52 Respiratory Rate 13 12/24/18 08:52 Blood Pressure 148/103 H 12/24/18 08:52 O2 Sat by Pulse Oximetry (%) 98 12/24/18 08:52 Cardiovascular: Yes: Regular Rate and Rhythm Respiratory: Yes: Regular, CTA Bilaterally Gastrointestinal: Yes: Normal Bowel Sounds, Soft Edema: No Neurological: Yes: Lethargy, Weakness Labs: CBC, BMP 12/24/18 06:25 12/24/18 06:25 Imaging - Results Chest X-ray: Report Reviewed Problem List - Problems (1) UTI (urinary tract infection) Assessment/Plan: CBC, CMP grossly normal CXR - There is some minimal pleural reaction and atelectasis at the left base. The left upper lobe and right lung are clear. UA - positive for nitrites and leukocyte esterase. Patient was diagnosed with UTI 3 weeks and treated, positive for UTI again today. Started on Rocephin. id consult Code(s): N39.0 - URINARY TRACT INFECTION, SITE NOT SPECIFIED (2) Seizure Assessment/Plan: maybe due to infection pb level neuro Code(s): R56.9 - UNSPECIFIED CONVULSIONS (3) Altered mental status Code(s): R41.82 - ALTERED MENTAL STATUS, UNSPECIFIED Qualifiers: Altered mental status type: unspecified Qualified Code(s): R41.82 - Altered mental status, unspecified (4) Dementia Code(s): F03.90 - UNSPECIFIED DEMENTIA WITHOUT BEHAVIORAL DISTURBANCE Qualifiers: Dementia type: Alzheimer's disease Alzheimer's disease onset: unspecified onset Dementia behavioral disturbance: without behavioral disturbance Qualified Code(s): G30.9 - Alzheimer's disease, unspecified; F02.80 - Dementia in other diseases classified elsewhere without behavioral disturbance
[2018-12-24] MEDS: ASPIRIN 81 MG CHEWABLE TABLETS PO SCH (13:26)
[2018-12-24] MEDS: PHENobarbital 30 MG TABLET PO SCH ×4 (13:26→21:59)
[2018-12-24] MEDS: ATORVASTATIN CA 10 MG TABLET (FP) PO SCH (21:59)
[2018-12-24] MEDS: HEPARIN NA (PORCINE) 5,000 UNITS/ML 1ML VIAL SQ SCH (21:59)
[2018-12-24] MEDS ORDERED: PHENobarbital 30 MG TABLET PO SCH (22:00)
[2018-12-24] MEDS ORDERED: PT OWN MED DRAWER 7, Y5N ONE (22:36)
[2018-12-25 07:41] LABS: BASO % 0.6 % (0-2.0); EOS % 9.1 % (0-4.5); HEMATOCRIT 37.4 % (32.4-45.2); HEMOGLOBIN 12.6 GM/dL (10.7-15.3); LYMPH % 24.5 % (8-40); MCH 31.5 pg (25.7-33.7); MCHC 33.8 g/dl (32.0-36.0); MEAN CELL VOLUME 93.2 fl (80-96); MEAN PLT VOLUME 9.8 fl (7.5-11.1); NEUT % 56.8 % (42.8-82.8); PLATELET COUNT 229 K/MM3 (134-434); RBC 4.01 M/mm3 (3.60-5.2); RDW 14.2 % (11.6-15.6); WHITE BLOOD COUNT 6.4 K/mm3 (4.0-10.0)
[2018-12-25 08:12] LABS: ALBUMIN 3.4 g/dl (3.4-5.0); BILIRUBIN,TOTAL 0.2 mg/dL (0.2-1); BLOOD UREA NITROGEN 15.7 mg/dL (7-18); CALCIUM 8.9 mg/dL (8.5-10.1); CREATININE 0.7 mg/dL (0.55-1.3); MAGNESIUM 2.3 mg/dL (1.8-2.4); PHOSPHOROUS 3.4 mg/dL (2.5-4.9); POTASSIUM 3.5 mmol/L (3.5-5.1); TOT PROT 6.5 g/dl (6.4-8.2)
[2018-12-25] MEDS ORDERED: DEXTROSE 5%-WATER - 50 ML IVPB ONE (10:54)
[2018-12-25] MEDS ORDERED: cefTRIAXone SODIUM 1 GM VIAL ONE (10:54)
[2018-12-25] MEDS: PANTOPRAZOLE 40 MG TABLET (FP) PO SCH (10:57)
[2018-12-25] MEDS: HEPARIN NA (PORCINE) 5,000 UNITS/ML 1ML VIAL SQ SCH ×2 (10:57→21:30)
[2018-12-25] MEDS: ESCITALOPRAM OXALATE 10 MG TABLET (FP) PO SCH (10:57)
[2018-12-25] MEDS: PHENobarbital 30 MG TABLET PO SCH ×4 (10:57→21:29)
[2018-12-25] MEDS: ASPIRIN 81 MG CHEWABLE TABLETS PO SCH (10:57)
[2018-12-25] MEDS: MEMANTINE HCL 10 MG TABLET (FP) PO SCH (10:57)
[2018-12-25] MEDS: CEFTRIAXONE 1 GM in DEXTROSE 5%-WATER - 50 ML IVPB SCH (10:58)
--- NOTE | 2018-12-25 11:55 | PN ---
Progress Note, Physician - Current Medication List Current Medications: Active Medications Aspirin (Asa -) 81 mg PO DAILY [facility] Last Admin: 12/25/18 10:57 Dose: 81 mg Atorvastatin Calcium (Lipitor -) 10 mg PO HS [facility] Last Admin: 12/24/18 21:59 Dose: 10 mg Escitalopram Oxalate (Lexapro -) 10 mg PO DAILY [facility] Last Admin: 12/25/18 10:57 Dose: 10 mg Heparin Sodium (Porcine) (Heparin -) 5,000 unit SQ BID [facility] Last Admin: 12/25/18 10:57 Dose: 5,000 unit Ceftriaxone Sodium 1 gm/ (Dextrose) 50 mls @ 100 mls/hr IVPB DAILY [facility]; Protocol Last Admin: 12/25/18 10:58 Dose: 100 mls/hr Memantine (Namenda -) 10 mg PO DAILY [facility] Last Admin: 12/25/18 10:57 Dose: 10 mg Pantoprazole Sodium (Protonix -) 40 mg PO DAILY [facility] Last Admin: 12/25/18 10:57 Dose: 40 mg Phenobarbital (Phenobarbital -) 60 mg PO BID [facility] Last Admin: 12/25/18 10:57 Dose: 60 mg Phenobarbital (Phenobarbital -) 30 mg PO BID [facility] Last Admin: 12/25/18 10:58 Dose: 30 mg - Objective Vital Signs: Vital Signs Temperature 97.5 F L 12/25/18 05:47 Pulse Rate 74 12/25/18 05:47 Respiratory Rate 18 12/25/18 05:47 Blood Pressure 109/76 12/25/18 05:47 O2 Sat by Pulse Oximetry (%) 98 12/24/18 20:41 Cardiovascular: Yes: S1, S2 Respiratory: Yes: Regular, CTA Bilaterally Gastrointestinal: Yes: Normal Bowel Sounds, Soft Neurological: Yes: Alert, Confusion Labs: CBC, BMP 12/25/18 06:30 12/25/18 06:30 Problem List - Problems (1) UTI (urinary tract infection) Assessment/Plan: CBC, CMP grossly normal CXR - There is some minimal pleural reaction and atelectasis at the left base. The left upper lobe and right lung are clear. UA - positive for nitrites and leukocyte esterase. Patient was diagnosed with UTI 3 weeks and treated, positive for UTI again today. Started on Rocephin. id consult Code(s): N39.0 - URINARY TRACT INFECTION, SITE NOT SPECIFIED (2) Seizure Assessment/Plan: maybe due to infection pb level neuro Code(s): R56.9 - UNSPECIFIED CONVULSIONS (3) Altered mental status Code(s): R41.82 - ALTERED MENTAL STATUS, UNSPECIFIED Qualifiers: Altered mental status type: unspecified Qualified Code(s): R41.82 - Altered mental status, unspecified (4) Dementia Code(s): F03.90 - UNSPECIFIED DEMENTIA WITHOUT BEHAVIORAL DISTURBANCE Qualifiers: Dementia type: Alzheimer's disease Alzheimer's disease onset: unspecified onset Dementia behavioral disturbance: without behavioral disturbance Qualified Code(s): G30.9 - Alzheimer's disease, unspecified; F02.80 - Dementia in other diseases classified elsewhere without behavioral disturbance
--- NOTE | 2018-12-25 12:33 | CON.NEURO ---
Consult - History of Present Illness History of Present Illness: 68yo woman with PMH asthma, hyperlipidemia, early onset alzheimers, fecal and urinary incontinence, and seizure disorder, on phenobarbital BIBEMS s/p witnessed seizure one hour ago prior to presentation on 12/24/18 . Per the , she lives with him. He handles her medications and she has been compliant. The seizure occurred while she was lying in bed and denies head trauma. Was at baseline prior to the seizure. At baseline, she is non verbal and does not follow commands. Phenobarb level P TSH, b12-WNL , UA (-) CT HD no acute pathology - Past Medical History [employer]: Yes: Alzheimer's, Dementia, 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 No: CHF Pulmonary: Yes: Asthma Renal/: Yes: Hematuria, Neurogenic Bladder, UTI - Alcohol/Substance Use Hx Alcohol Use: No History of Substance Use: reports: None - Smoking History Smoking history: Never smoked Have you smoked in the past 12 months: No - Social History Usual Living Arrangement: With Spouse ADL: Support Services History of Recent Travel: No Home Medications - Allergies Allergies/Adverse Reactions: Allergies Allergy/AdvReac Type Severity Reaction Status Date / Time ciprofloxacin Allergy Intermediate Rash Verified 12/24/18 05:04 - Home Medications Home Medications: Ambulatory Orders Atorvastatin Ca [Lipitor] 10 mg PO HS 01/21/17 Escitalopram Oxalate [Lexapro -] 10 mg PO DAILY 09/07/17 Pantoprazole Sodium [Protonix -] 40 mg PO DAILY tablet.ec 09/12/17 Albuterol Sulfate Inhaler - [Ventolin HFA Inhaler -] 1 - 2 inh PO Q4H PRN Naproxen Sodium [Naproxen Sodium ER] 500 mg PO BID 10/19/17 Phenobarbital 32.4 mg PO BID #60 tablet MDD 2 tablets 10/19/17 Phenobarbital 60 mg PO BID #60 tablet MDD 2 tablets 10/19/17 Memantine HCl 10 mg PO DAILY #30 tablet 01/14/18 Cephalexin Monohydrate [Keflex -] 500 mg PO BID #14 capsule 01/15/18 Aspirin 81 DAILY 12/24/18 Physical Exam-Neuro Vital Signs: Vital Signs Temperature 97.5 F L 12/25/18 05:47 Pulse Rate 74 12/25/18 05:47 Respiratory Rate 18 12/25/18 05:47 Blood Pressure 109/76 12/25/18 05:47 O2 Sat by Pulse Oximetry (%) 98 12/24/18 20:41 Labs: CBC, BMP 12/25/18 06:30 12/25/18 06:30 - Neuro Exam Level Of Consciousness: Yes: Alert (awake, not oriented, not following requests , severe dementia ) Problem List - Problems (1) Seizure Code(s): R56.9 - UNSPECIFIED CONVULSIONS (2) Altered mental status Code(s): R41.82 - ALTERED MENTAL STATUS, UNSPECIFIED Qualifiers: Altered mental status type: unspecified Qualified Code(s): R41.82 - Altered mental status, unspecified (3) Alzheimer disease Code(s): G30.9 - ALZHEIMER'S DISEASE, UNSPECIFIED; F02.80 - DEMENTIA IN OTH DISEASES CLASSD ELSWHR W/O BEHAVRL DISTURB Qualifiers: Alzheimer's disease onset: unspecified onset Dementia behavioral disturbance: without behavioral disturbance Qualified Code(s): G30.9 - Alzheimer's disease, unspecified; F02.80 - Dementia in other diseases classified elsewhere without behavioral disturbance Assessment/Plan 68yo woman with PMH asthma, hyperlipidemia, alzheimers, fecal and urinary incontinence, and seizure disorder, on phenobarbital BIBEMS s/p witnessed seizure one hour ago prior to presentation on 12/24/18 . Per the , she lives with him. He handles her medications and she has been compliant. The seizure occurred while she was lying in bed and denies head trauma. Was at baseline prior to the seizure. At baseline, she is non verbal and does not follow commands. Phenobarb level P TSH, b12-WNL , UA (-) CT HD no acute pathology AP : early onset dementia frontotemporal or early onset ALZ , since 2013 as per ; with [facility] Seizures Cont Phenobarb 90 BID ( 60/30 bid) add on keppra 500BID would get MRI BRAIN would consider genetic dementia testing as an outpt DR MITCHELL
[2018-12-25] MEDS: levETIRAcetam 500 MG TABLET (FP) PO SCH ×2 (15:00→21:29)
[2018-12-25] MEDS ORDERED: ALBUTEROL SO4 2.5/IPRATROPIUM 0.5 INH SOL 3 ML VIAL.NEB. NEB PRN (19:08)
--- NOTE | 2018-12-25 19:24 | PN ---
Progress Note, Physician - Current Medication List Current Medications: Active Medications Albuterol/Ipratropium (Duoneb -) 1 amp NEB Q4H PRN PRN Reason: SHORTNESS OF BREATH Aspirin (Asa -) 81 mg PO DAILY [facility] Last Admin: 12/25/18 10:57 Dose: 81 mg Atorvastatin Calcium (Lipitor -) 10 mg PO HS [facility] Last Admin: 12/24/18 21:59 Dose: 10 mg Escitalopram Oxalate (Lexapro -) 10 mg PO DAILY [facility] Last Admin: 12/25/18 10:57 Dose: 10 mg Heparin Sodium (Porcine) (Heparin -) 5,000 unit SQ BID [facility] Last Admin: 12/25/18 10:57 Dose: 5,000 unit Ceftriaxone Sodium 1 gm/ (Dextrose) 50 mls @ 100 mls/hr IVPB DAILY [facility]; Protocol Last Admin: 12/25/18 10:58 Dose: 100 mls/hr Levetiracetam (Keppra -) 500 mg PO BID [facility] Last Admin: 12/25/18 15:00 Dose: Not Given Memantine (Namenda -) 10 mg PO DAILY [facility] Last Admin: 12/25/18 10:57 Dose: 10 mg Pantoprazole Sodium (Protonix -) 40 mg PO DAILY [facility] Last Admin: 12/25/18 10:57 Dose: 40 mg Phenobarbital (Phenobarbital -) 60 mg PO BID [facility] Last Admin: 12/25/18 10:57 Dose: 60 mg Phenobarbital (Phenobarbital -) 30 mg PO BID [facility] Last Admin: 12/25/18 10:58 Dose: 30 mg - Objective Vital Signs: Vital Signs Temperature 98.5 F 12/25/18 15:13 Pulse Rate 80 12/25/18 15:13 Respiratory Rate 18 12/25/18 15:13 Blood Pressure 100/58 L 12/25/18 15:13 O2 Sat by Pulse Oximetry (%) 98 12/25/18 09:00 Labs: CBC, BMP 12/25/18 06:30 12/25/18 06:30 Assessment/Plan UTI R/O SEPSIS SECONDARY TO UTI SEIZURE DISORDER OBS AWAIT C/S CONTINUE EMPIRIC CEFTRIAXONE DISCUSSED WITH AT BEDSIDE
[2018-12-25] MEDS: ATORVASTATIN CA 10 MG TABLET (FP) PO SCH (21:29)
[2018-12-25] MEDS ORDERED: PT OWN MED DRAWER 7, Y5N ONE (21:32)
--- NOTE | 2018-12-26 09:23 | CONS ---
DATE OF CONSULTATION: DATE DICTATION: 12/26/2018 HISTORY OF PRESENT ILLNESS: The patient is a 68-year-old female who was evaluated for a urinary tract infection. History was obtained from the chart, as well as the patient's present at the time of the examination. She was admitted to the hospital on December 24, 2018 after seizure activity. She was admitted to the hospital where she was evaluated by Neurology. She was found to have pyuria on exam, a urine culture was ordered and she was empirically treated with ceftriaxone. The patient is unable to offer any additional details, as she suffers from dementia. According to the notes, she had recently been treated for a urinary tract infection as an outpatient. Her most recent urine available is from last month, which was an E. coli, which is pansensitive. No reports of malodorous urine or abdominal distress. No reported fever or chills. PAST MEDICAL HISTORY: Positive for seizure disorder, dementia, asthma, hyperlipidemia. ALLERGIES: CIPROFLOXACIN. MEDICATIONS: Include ceftriaxone, albuterol, aspirin, Lipitor, Lexapro, Namenda, Protonix, phenobarbital. SOCIAL HISTORY: Resides at home with her . Dependent in activities of daily living, no active tobacco, or alcohol use. SYSTEMS REVIEW: Neurologic: As per HPI. Cardiac: Negative chest pain or palpitations. Respiratory: Negative cough, or sputum production. Gastrointestinal: Negative vomiting, or diarrhea. Genitourinary: As per HPI. LABORATORY DATA: White count 6.4, hematocrit 37.4, platelets 229, creatinine 0.7, liver enzymes normal. Urinalysis 11 white cells. Cultures pending. PHYSICAL EXAMINATION: General: On exam, she was awake; however confused, in no acute distress. Vitals: Temperature 98.5, blood pressure 100/58, pulse 80 regular, respirations 18 per minute. HEENT: Sclera anicteric. Heart: Sounds S1, S2. Lungs: Clear. Abdomen: Soft, no suprapubic or flank tenderness. Extremities: Negative for edema. IMPRESSION: 1. Recurrent urinary tract infection, rule out sepsis, secondary to urinary tract infection. 2. Seizure disorder. 3. Dementia. PLAN: Await cultures; continue empiric antibiotic coverage with ceftriaxone pending cultures. The case was discussed with the patient's at the bedside. Thank you for the kind referral. KELSI KENNEDY M.D. [id number]
[2018-12-26] MEDS ORDERED: DEXTROSE 5%-WATER - 50 ML IVPB ONE (10:56)
[2018-12-26] MEDS ORDERED: cefTRIAXone SODIUM 1 GM VIAL ONE (10:56)
[2018-12-26] MEDS ORDERED: PT OWN MED DRAWER 7, Y5N ONE (10:57)
[2018-12-26] MEDS: CEFTRIAXONE 1 GM in DEXTROSE 5%-WATER - 50 ML IVPB SCH (11:33)
[2018-12-26] MEDS: ASPIRIN 81 MG CHEWABLE TABLETS PO SCH (11:34)
[2018-12-26] MEDS: PANTOPRAZOLE 40 MG TABLET (FP) PO SCH (11:34)
[2018-12-26] MEDS: PHENobarbital 30 MG TABLET PO SCH ×4 (11:34→22:13)
[2018-12-26] MEDS: HEPARIN NA (PORCINE) 5,000 UNITS/ML 1ML VIAL SQ SCH ×2 (11:35→22:12)
[2018-12-26] MEDS: ESCITALOPRAM OXALATE 10 MG TABLET (FP) PO SCH (11:35)
[2018-12-26] MEDS: MEMANTINE HCL 10 MG TABLET (FP) PO SCH (11:36)
[2018-12-26] MEDS: levETIRAcetam 500 MG TABLET (FP) PO SCH ×2 (11:36→22:12)
--- NOTE | 2018-12-26 15:24 | PN ---
Progress Note, Physician Chief Complaint: UTI Seizure History of Present Illness: Previous notes and events reviewed awake and alert, pleasantly confused NAD no seizure episodes reported - Current Medication List Current Medications: Active Medications Albuterol/Ipratropium (Duoneb -) 1 amp NEB Q4H PRN PRN Reason: SHORTNESS OF BREATH Aspirin (Asa -) 81 mg PO DAILY [facility] Last Admin: 12/26/18 11:34 Dose: 81 mg Atorvastatin Calcium (Lipitor -) 10 mg PO HS [facility] Last Admin: 12/25/18 21:29 Dose: 10 mg Escitalopram Oxalate (Lexapro -) 10 mg PO DAILY [facility] Last Admin: 12/26/18 11:35 Dose: 10 mg Heparin Sodium (Porcine) (Heparin -) 5,000 unit SQ BID [facility] Last Admin: 12/26/18 11:35 Dose: 5,000 unit Ceftriaxone Sodium 1 gm/ (Dextrose) 50 mls @ 100 mls/hr IVPB DAILY [facility]; Protocol Last Admin: 12/26/18 11:33 Dose: 100 mls/hr Levetiracetam (Keppra -) 500 mg PO BID [facility] Last Admin: 12/26/18 11:36 Dose: 500 mg Memantine (Namenda -) 10 mg PO DAILY [facility] Last Admin: 12/26/18 11:36 Dose: 10 mg Pantoprazole Sodium (Protonix -) 40 mg PO DAILY [facility] Last Admin: 12/26/18 11:34 Dose: 40 mg Phenobarbital (Phenobarbital -) 60 mg PO BID [facility] Last Admin: 12/26/18 11:34 Dose: 60 mg Phenobarbital (Phenobarbital -) 30 mg PO BID [facility] Last Admin: 12/26/18 11:34 Dose: 30 mg - Objective Vital Signs: Vital Signs Temperature 97.3 F L 12/26/18 14:28 Pulse Rate 73 12/26/18 14:28 Respiratory Rate 18 12/26/18 10:00 Blood Pressure 131/73 12/26/18 14:28 O2 Sat by Pulse Oximetry (%) 98 12/26/18 09:00 Constitutional: Yes: No Distress Eyes: Yes: Conjunctiva Clear HENT: Yes: Atraumatic Cardiovascular: Yes: Regular Rate and Rhythm Respiratory: Yes: Regular, CTA Bilaterally Gastrointestinal: Yes: Normal Bowel Sounds, Soft Genitourinary: Yes: Incontinence Musculoskeletal: Yes: Muscle Weakness Extremities: Yes: WNL Edema: No Neurological: Yes: Alert, Confusion Psychiatric: Yes: Alert Labs: CBC, BMP 12/25/18 06:30 12/25/18 06:30 - ....Imaging Cat Scan: Report Reviewed MRI: Report Reviewed Problem List - Problems (1) Seizure Assessment/Plan: -Neurology on board -Keppra and Phenobarbital -Phenobarbital level pending -seizure precautions -fall precautions Code(s): R56.9 - UNSPECIFIED CONVULSIONS (2) UTI (urinary tract infection) Assessment/Plan: -ID on board -UA shows 1+ leuks, 3+ blood -UC ordered -no leukocytosis -afebrile -Ceftriaxone Code(s): N39.0 - URINARY TRACT INFECTION, SITE NOT SPECIFIED (3) Alzheimer disease Assessment/Plan: -Neurology on board -Brain MRI shows loss of volume of the brain parenchyma with involutional changes, cortical atrophy observed, with widened cortical sulci, sylvian fissures -further dementia workp-up as outpatient -Namenda Code(s): G30.9 - ALZHEIMER'S DISEASE, UNSPECIFIED; F02.80 - DEMENTIA IN OTH DISEASES CLASSD ELSWHR W/O BEHAVRL DISTURB Qualifiers: Alzheimer's disease onset: unspecified onset Dementia behavioral disturbance: without behavioral disturbance Qualified Code(s): G30.9 - Alzheimer's disease, unspecified; F02.80 - Dementia in other diseases classified elsewhere without behavioral disturbance (4) HLD (hyperlipidemia) Assessment/Plan: -Atorvastatin Code(s): E78.5 - HYPERLIPIDEMIA, UNSPECIFIED Assessment/Plan see problem list dvt ppx
--- NOTE | 2018-12-26 16:32 | PN ---
Progress Note (short form) - Note Progress Note: 68yo woman with PMH asthma, hyperlipidemia, early onset alzheimers, fecal and urinary incontinence, and seizure disorder, on phenobarbital BIBEMS s/p witnessed seizure one hour ago prior to presentation on 12/24/18 . Per the , she lives with him. He handles her medications and she has been compliant. The seizure occurred while she was lying in bed and denies head trauma. Was at baseline prior to the seizure. At baseline, she is non verbal and does not follow commands. Phenobarb level P TSH, b12-WNL , UA (-) CT HD no acute pathology FU: back to baseline , bedside no new seizures MRI significant atrophy, no stroke, mass etc - Past Medical History [employer]: Yes: Alzheimer's, Dementia, 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 No: CHF Pulmonary: Yes: Asthma Renal/: Yes: Hematuria, Neurogenic Bladder, UTI - Alcohol/Substance Use Hx Alcohol Use: No History of Substance Use: reports: None - Smoking History Smoking history: Never smoked Have you smoked in the past 12 months: No - Social History Usual Living Arrangement: With Spouse ADL: Support Services History of Recent Travel: No Home Medications - Allergies Allergies/Adverse Reactions: Allergies Allergy/AdvReac Type Severity Reaction Status Date / Time ciprofloxacin Allergy Intermediate Rash Verified 12/24/18 05:04 - Home Medications Home Medications: Ambulatory Orders Atorvastatin Ca [Lipitor] 10 mg PO HS 01/21/17 Escitalopram Oxalate [Lexapro -] 10 mg PO DAILY 09/07/17 Pantoprazole Sodium [Protonix -] 40 mg PO DAILY tablet.ec 09/12/17 Albuterol Sulfate Inhaler - [Ventolin HFA Inhaler -] 1 - 2 inh PO Q4H PRN Naproxen Sodium [Naproxen Sodium ER] 500 mg PO BID 10/19/17 Phenobarbital 32.4 mg PO BID #60 tablet MDD 2 tablets 10/19/17 Phenobarbital 60 mg PO BID #60 tablet MDD 2 tablets 10/19/17 Memantine HCl 10 mg PO DAILY #30 tablet 01/14/18 Cephalexin Monohydrate [Keflex -] 500 mg PO BID #14 capsule 01/15/18 Aspirin 81 DAILY 12/24/18 Physical Exam-Neuro Vital Signs: Vital Signs Temperature 97.3 F L 12/26/18 14:28 Pulse Rate 73 12/26/18 14:28 Respiratory Rate 18 12/26/18 10:00 Blood Pressure 131/73 12/26/18 14:28 O2 Sat by Pulse Oximetry (%) 98 12/26/18 09:00 Labs: CBCD WBC 6.4 K/mm3 (4.0-10.0) 12/25/18 06:30 RBC 4.01 M/mm3 (3.60-5.2) 12/25/18 06:30 Hgb 12.6 GM/dL (10.7-15.3) 12/25/18 06:30 Hct 37.4 % (32.4-45.2) 12/25/18 06:30 MCV 93.2 fl (80-96) 12/25/18 06:30 MCHC 33.8 g/dl (32.0-36.0) 12/25/18 06:30 RDW 14.2 % (11.6-15.6) 12/25/18 06:30 Plt Count 229 K/MM3 (134-434) 12/25/18 06:30 MPV 9.8 fl (7.5-11.1) 12/25/18 06:30 CMP Sodium 142 mmol/L (136-145) 12/25/18 06:30 Potassium 3.5 mmol/L (3.5-5.1) 12/25/18 06:30 Chloride 106 mmol/L (98-107) 12/25/18 06:30 Carbon Dioxide 31 mmol/L (21-32) 12/25/18 06:30 Anion Gap 5 MMOL/L (8-16) L 12/25/18 06:30 BUN 15.7 mg/dL (7-18) 12/25/18 06:30 Creatinine 0.7 mg/dL (0.55-1.3) 12/25/18 06:30 Calcium 8.9 mg/dL (8.5-10.1) 12/25/18 06:30 Total Bilirubin 0.2 mg/dL (0.2-1) 12/25/18 06:30 AST 16 U/L (15-37) 12/25/18 06:30 ALT 15 U/L (13-61) 12/25/18 06:30 Alkaline Phosphatase 110 U/L (45-117) 12/25/18 06:30 Total Protein 6.5 g/dl (6.4-8.2) 12/25/18 06:30 Albumin 3.4 g/dl (3.4-5.0) 12/25/18 06:30 - Neuro Exam Level Of Consciousness: Yes: Alert (awake, not oriented, not following requests , severe dementia ) Problem List - Problems (1) Seizure Code(s): R56.9 - UNSPECIFIED CONVULSIONS (2) Altered mental status Code(s): R41.82 - ALTERED MENTAL STATUS, UNSPECIFIED Qualifiers: Altered mental status type: unspecified Qualified Code(s): R41.82 - Altered mental status, unspecified (3) Alzheimer disease Code(s): G30.9 - ALZHEIMER'S DISEASE, UNSPECIFIED; F02.80 - DEMENTIA IN OTH DISEASES CLASSD ELSWHR W/O BEHAVRL DISTURB Qualifiers: Alzheimer's disease onset: unspecified onset Dementia behavioral disturbance: without behavioral disturbance Qualified Code(s): G30.9 - Alzheimer's disease, unspecified; F02.80 - Dementia in other diseases classified elsewhere without behavioral disturbance Assessment/Plan 68yo woman with PMH asthma, hyperlipidemia, alzheimers, fecal and urinary incontinence, and seizure disorder, on phenobarbital BIBEMS s/p witnessed seizure one hour ago prior to presentation on 12/24/18 . Per the , she lives with him. He handles her medications and she has been compliant. The seizure occurred while she was lying in bed and denies head trauma. Was at baseline prior to the seizure. At baseline, she is non verbal and does not follow commands. Phenobarb level P TSH, b12-WNL , UA (-) CT HD no acute pathology AP : early onset dementia frontotemporal or early onset ALZ , since 2013 as per ; with breakthrough Seizures Cont Phenobarb 90 BID ( 60/30 bid) . FU level cont keppra 500BID MRI BRAIN reviewed -atrophy would consider genetic dementia testing as an outpt neurologically stable and can be DC DR MITCHELL Problem List - Problems (1) Seizure Code(s): R56.9 - UNSPECIFIED CONVULSIONS (2) Altered mental status Code(s): R41.82 - ALTERED MENTAL STATUS, UNSPECIFIED Qualifiers: Altered mental status type: unspecified Qualified Code(s): R41.82 - Altered mental status, unspecified (3) Alzheimer disease Code(s): G30.9 - ALZHEIMER'S DISEASE, UNSPECIFIED; F02.80 - DEMENTIA IN OTH DISEASES CLASSD ELSWHR W/O BEHAVRL DISTURB Qualifiers: Alzheimer's disease onset: unspecified onset Dementia behavioral disturbance: without behavioral disturbance Qualified Code(s): G30.9 - Alzheimer's disease, unspecified; F02.80 - Dementia in other diseases classified elsewhere without behavioral disturbance
[2018-12-26] MEDS: ATORVASTATIN CA 10 MG TABLET (FP) PO SCH (22:12)
[2018-12-27 08:05] LABS: HEMATOCRIT 34.5 % (32.4-45.2); HEMOGLOBIN 11.6 GM/dL (10.7-15.3); MCH 31.6 pg (25.7-33.7); MCHC 33.5 g/dl (32.0-36.0); MEAN CELL VOLUME 94.2 fl (80-96); MEAN PLT VOLUME 9.7 fl (7.5-11.1); PLATELET COUNT 202 K/MM3 (134-434); RBC 3.66 M/mm3 (3.60-5.2); RDW 14.4 % (11.6-15.6); WHITE BLOOD COUNT 5.4 K/mm3 (4.0-10.0)
[2018-12-27 08:10] LABS: ALBUMIN 3.1 g/dl (3.4-5.0); BILIRUBIN,TOTAL 0.2 mg/dL (0.2-1); BLOOD UREA NITROGEN 18.9 mg/dL (7-18); CALCIUM 8.6 mg/dL (8.5-10.1); CREATININE 0.6 mg/dL (0.55-1.3); POTASSIUM 3.6 mmol/L (3.5-5.1)
[2018-12-27] MEDS ORDERED: DEXTROSE 5%-WATER - 50 ML IVPB ONE (10:57)
[2018-12-27] MEDS ORDERED: cefTRIAXone SODIUM 1 GM VIAL ONE (10:57)
[2018-12-27] MEDS: CEFTRIAXONE 1 GM in DEXTROSE 5%-WATER - 50 ML IVPB SCH (11:01)
[2018-12-27] MEDS: PANTOPRAZOLE 40 MG TABLET (FP) PO SCH (11:01)
[2018-12-27] MEDS: levETIRAcetam 500 MG TABLET (FP) PO SCH ×2 (11:02→21:40)
[2018-12-27] MEDS: PHENobarbital 30 MG TABLET PO SCH ×4 (11:02→21:40)
[2018-12-27] MEDS: ASPIRIN 81 MG CHEWABLE TABLETS PO SCH (11:02)
[2018-12-27] MEDS: HEPARIN NA (PORCINE) 5,000 UNITS/ML 1ML VIAL SQ SCH ×2 (11:02→21:40)
[2018-12-27] MEDS: MEMANTINE HCL 10 MG TABLET (FP) PO SCH (11:02)
[2018-12-27] MEDS: ESCITALOPRAM OXALATE 10 MG TABLET (FP) PO SCH (11:02)
--- NOTE | 2018-12-27 15:49 | PN ---
Progress Note, Physician Chief Complaint: UTI Seizure History of Present Illness: Previous notes and events reviewed awake and alert, pleasantly confused NAD no seizure episodes reported afebrile no leukocytosis BC pending - Current Medication List Current Medications: Active Medications Albuterol/Ipratropium (Duoneb -) 1 amp NEB Q4H PRN PRN Reason: SHORTNESS OF BREATH Aspirin (Asa -) 81 mg PO DAILY [facility] Last Admin: 12/27/18 11:02 Dose: 81 mg Atorvastatin Calcium (Lipitor -) 10 mg PO HS [facility] Last Admin: 12/26/18 22:12 Dose: 10 mg Escitalopram Oxalate (Lexapro -) 10 mg PO DAILY [facility] Last Admin: 12/27/18 11:02 Dose: 10 mg Heparin Sodium (Porcine) (Heparin -) 5,000 unit SQ BID [facility] Last Admin: 12/27/18 11:02 Dose: 5,000 unit Ceftriaxone Sodium 1 gm/ (Dextrose) 50 mls @ 100 mls/hr IVPB DAILY [facility]; Protocol Last Admin: 12/27/18 11:01 Dose: 100 mls/hr Levetiracetam (Keppra -) 500 mg PO BID [facility] Last Admin: 12/27/18 11:02 Dose: 500 mg Memantine (Namenda -) 10 mg PO DAILY [facility] Last Admin: 12/27/18 11:02 Dose: 10 mg Pantoprazole Sodium (Protonix -) 40 mg PO DAILY [facility] Last Admin: 12/27/18 11:01 Dose: 40 mg Phenobarbital (Phenobarbital -) 60 mg PO BID [facility] Last Admin: 12/27/18 11:02 Dose: 60 mg Phenobarbital (Phenobarbital -) 30 mg PO BID [facility] Last Admin: 12/27/18 11:02 Dose: 30 mg - Objective Vital Signs: Vital Signs Temperature 98.4 F 12/27/18 09:00 Pulse Rate 72 12/27/18 09:00 Respiratory Rate 19 12/27/18 09:00 Blood Pressure 99/69 12/27/18 09:00 O2 Sat by Pulse Oximetry (%) 99 12/27/18 09:00 Constitutional: Yes: No Distress, Calm Eyes: Yes: Conjunctiva Clear HENT: Yes: Atraumatic Cardiovascular: Yes: Regular Rate and Rhythm Respiratory: Yes: Regular, CTA Bilaterally Gastrointestinal: Yes: Normal Bowel Sounds, Soft Genitourinary: Yes: Incontinence Musculoskeletal: Yes: Muscle Weakness Extremities: Yes: WNL Edema: No Neurological: Yes: Alert, Confusion, Pre-Existing Deficit Psychiatric: Yes: Alert Labs: CBC, BMP 12/27/18 06:30 12/27/18 06:30 Problem List - Problems (1) Seizure Assessment/Plan: -Neurology on board -Keppra and Phenobarbital -Phenobarbital level pending -seizure precautions -fall precautions Code(s): R56.9 - UNSPECIFIED CONVULSIONS (2) UTI (urinary tract infection) Assessment/Plan: -ID on board -UA shows 1+ leuks, 3+ blood -UC ordered -no leukocytosis -afebrile -Ceftriaxone Code(s): N39.0 - URINARY TRACT INFECTION, SITE NOT SPECIFIED (3) Alzheimer disease Assessment/Plan: -Neurology on board -Brain MRI shows loss of volume of the brain parenchyma with involutional changes, cortical atrophy observed, with widened cortical sulci, sylvian fissures -further dementia workp-up as outpatient -Namenda Code(s): G30.9 - ALZHEIMER'S DISEASE, UNSPECIFIED; F02.80 - DEMENTIA IN OTH DISEASES CLASSD ELSWHR W/O BEHAVRL DISTURB Qualifiers: Alzheimer's disease onset: unspecified onset Dementia behavioral disturbance: without behavioral disturbance Qualified Code(s): G30.9 - Alzheimer's disease, unspecified; F02.80 - Dementia in other diseases classified elsewhere without behavioral disturbance (4) HLD (hyperlipidemia) Assessment/Plan: -Atorvastatin Code(s): E78.5 - HYPERLIPIDEMIA, UNSPECIFIED Assessment/Plan see problem list dvt ppx
[2018-12-27] MEDS: ATORVASTATIN CA 10 MG TABLET (FP) PO SCH (21:40)
[2018-12-27] MEDS ORDERED: PT OWN MED DRAWER 7, Y5N ONE (22:10)
[2018-12-28 03:00] VITALS: TEMP 98.4
[2018-12-28 09:02] LABS: HEMATOCRIT 39.1 % (32.4-45.2); HEMOGLOBIN 12.8 GM/dL (10.7-15.3); MCH 30.9 pg (25.7-33.7); MCHC 32.7 g/dl (32.0-36.0); MEAN CELL VOLUME 94.5 fl (80-96); PLATELET COUNT 211 K/MM3 (134-434); RBC 4.14 M/mm3 (3.60-5.2); RDW 14.7 % (11.6-15.6); WHITE BLOOD COUNT 5.8 K/mm3 (4.0-10.0)
[2018-12-28 09:24] LABS: ALBUMIN 3.5 g/dl (3.4-5.0); BILIRUBIN,TOTAL 0.2 mg/dL (0.2-1); BLOOD UREA NITROGEN 18.4 mg/dL (7-18); CALCIUM 9.1 mg/dL (8.5-10.1); CREATININE 0.7 mg/dL (0.55-1.3); POTASSIUM 3.6 mmol/L (3.5-5.1)
[2018-12-28] MEDS ORDERED: cefTRIAXone SODIUM 1 GM VIAL ONE (10:23)
[2018-12-28] MEDS ORDERED: DEXTROSE 5%-WATER - 50 ML IVPB ONE (10:23)
[2018-12-28] MEDS: CEFTRIAXONE 1 GM in DEXTROSE 5%-WATER - 50 ML IVPB SCH (10:51)
[2018-12-28] MEDS: HEPARIN NA (PORCINE) 5,000 UNITS/ML 1ML VIAL SQ SCH (10:51)
[2018-12-28] MEDS: ASPIRIN 81 MG CHEWABLE TABLETS PO SCH (10:51)
[2018-12-28] MEDS: levETIRAcetam 500 MG TABLET (FP) PO SCH (10:52)
[2018-12-28] MEDS: ESCITALOPRAM OXALATE 10 MG TABLET (FP) PO SCH (10:52)
[2018-12-28] MEDS: PANTOPRAZOLE 40 MG TABLET (FP) PO SCH (10:52)
[2018-12-28] MEDS: MEMANTINE HCL 10 MG TABLET (FP) PO SCH (10:52)
[2018-12-28] MEDS: PHENobarbital 30 MG TABLET PO SCH ×2 (10:53)
--- NOTE | 2018-12-28 11:06 | DS ---
Physical Examination Vital Signs: Vital Signs Temperature 98.4 F 12/28/18 05:55 Pulse Rate 58 L 12/28/18 05:55 Respiratory Rate 20 12/28/18 05:55 Blood Pressure 108/61 12/28/18 05:55 O2 Sat by Pulse Oximetry (%) 98 12/27/18 22:00 Constitutional: Yes: No Distress, Calm Eyes: Yes: Conjunctiva Clear HENT: Yes: Atraumatic Cardiovascular: Yes: Regular Rate and Rhythm Respiratory: Yes: Regular, CTA Bilaterally Gastrointestinal: Yes: Normal Bowel Sounds, Soft, Abdomen, Obese Renal/: Yes: Incontinence Musculoskeletal: Yes: Muscle Weakness Extremities: Yes: WNL Edema: No Neurological: Yes: Alert, Pre-Existing Deficit Psychiatric: Yes: Alert Labs: CBC, BMP 12/28/18 08:00 12/28/18 08:00 Microbiology 12/26/18 15:55 Blood - Peripheral Venous Blood Culture - Preliminary NO GROWTH OBTAINED AFTER 24 HOURS, INCUBATION TO CONTINUE FOR 4 DAYS. 12/26/18 15:46 Blood - Peripheral Venous Blood Culture - Preliminary NO GROWTH OBTAINED AFTER 24 HOURS, INCUBATION TO CONTINUE FOR 4 DAYS. Discharge Summary Reason For Visit: URINARY TRACT INFECTION/SEIZURE Current Active Problems Seizure (Acute) UTI (urinary tract infection) (Acute) Hospital Course: Patient is a 77 y/o female with past medical of Seizures. Patient presented to ER for seizure that morning. Patient is non-verbal at baseline and has hx of Dementia. Patient was evaluated by Neurology while in patient and Brain CT and MRI neg for stroke. Treated with IV antibiotics for possible UTI, BC neg. During hospitalization no seizure episodes reported and patient had keppra added to her seizure med regimen. Condition: Stable - Instructions Diet, Activity, Other Instructions: Follow up with PMD in 1 week Follow up with Neurologist as scheduled continue with medication as prescribed return to ER if develop fevers, change in mental status, respiratory distress, chest pain Referrals: Israel Maya MD [Primary Care Provider] - Tom Pham DO [Staff Physician] - Disposition: VNS/HOME HEALTH CARE - Home Medications Comprehensive Discharge Medication List: Ambulatory Orders Atorvastatin Ca [Lipitor] 10 mg PO HS 01/21/17 Escitalopram Oxalate [Lexapro -] 10 mg PO DAILY 09/07/17 Pantoprazole Sodium [Protonix -] 40 mg PO DAILY tablet.ec 09/12/17 Albuterol Sulfate Inhaler - [Ventolin HFA Inhaler -] 1 - 2 inh PO Q4H PRN Naproxen Sodium [Naproxen Sodium ER] 500 mg PO BID 10/19/17 Phenobarbital 60 mg PO BID #60 tablet MDD 2 tablets 10/19/17 Aspirin 81 DAILY 12/24/18 Memantine HCl [Namenda -] 10 mg PO DAILY #30 tablet 12/27/18 Phenobarbital - 30 mg PO BID #60 tablet MDD 2 12/27/18 levETIRAcetam [Keppra -] 500 mg PO BID #60 tablet 12/27/18
[2018-12-28 12:16] VITALS: BP 92/52; PULSE 69
--- NOTE | 2018-12-28 12:38 | PN ---
Progress Note, Physician History of Present Illness: AWAKE, ALERT SEATED IN BED CONFUSED AFEBRILE - Current Medication List Current Medications: Active Medications Albuterol/Ipratropium (Duoneb -) 1 amp NEB Q4H PRN PRN Reason: SHORTNESS OF BREATH Aspirin (Asa -) 81 mg PO DAILY [facility] Last Admin: 12/28/18 10:51 Dose: 81 mg Atorvastatin Calcium (Lipitor -) 10 mg PO HS [facility] Last Admin: 12/27/18 21:40 Dose: 10 mg Escitalopram Oxalate (Lexapro -) 10 mg PO DAILY [facility] Last Admin: 12/28/18 10:52 Dose: 10 mg Heparin Sodium (Porcine) (Heparin -) 5,000 unit SQ BID [facility] Last Admin: 12/28/18 10:51 Dose: 5,000 unit Ceftriaxone Sodium 1 gm/ (Dextrose) 50 mls @ 100 mls/hr IVPB DAILY [facility]; Protocol Last Admin: 12/28/18 10:51 Dose: 100 mls/hr Levetiracetam (Keppra -) 500 mg PO BID [facility] Last Admin: 12/28/18 10:52 Dose: 500 mg Memantine (Namenda -) 10 mg PO DAILY [facility] Last Admin: 12/28/18 10:52 Dose: 10 mg Pantoprazole Sodium (Protonix -) 40 mg PO DAILY [facility] Last Admin: 12/28/18 10:52 Dose: 40 mg Phenobarbital (Phenobarbital -) 60 mg PO BID [facility] Last Admin: 12/28/18 10:53 Dose: 60 mg Phenobarbital (Phenobarbital -) 30 mg PO BID [facility] Last Admin: 12/28/18 10:53 Dose: 30 mg - Objective Vital Signs: Vital Signs Temperature 98.4 F 12/28/18 10:00 Pulse Rate 69 12/28/18 10:00 Respiratory Rate 20 12/28/18 10:00 Blood Pressure 92/52 L 12/28/18 10:00 O2 Sat by Pulse Oximetry (%) 98 12/28/18 09:00 Constitutional: Yes: No Distress Cardiovascular: Yes: Regular Rate and Rhythm, S1, S2 Respiratory: Yes: CTA Bilaterally Gastrointestinal: Yes: Normal Bowel Sounds, Soft. No: Tenderness Labs: CBC, BMP 12/28/18 08:00 12/28/18 08:00 Assessment/Plan UTI S/P SEIZURE OBS D/C ANTIBIOTICS, OBSERVE OFF
== END 2018-12-28 13:28 | disposition home health service (06) | DRG 101 ==
LOC: JER 04:59 → JERBED 08:22 → J6S 11:12
PROVIDERS: ADMIT Family Medicine; ATTEND Family Medicine
DX: G40.909 Epilepsy, unspecified, not intractable, without status epilepticus (principal); N39.0 Urinary tract infection, site not specified; J98.11 Atelectasis; G30.9 Alzheimer's disease, unspecified; F02.80 Dementia in other diseases classified elsewhere, unspecified severity, without behavioral disturbance, psychotic disturbance, mood disturbance, and anxiety; E78.5 Hyperlipidemia, unspecified; E66.9 Obesity, unspecified; Z68.31 Body mass index [BMI] 31.0-31.9, adult; R41.82 Altered mental status, unspecified
CPT/HCPCS: 36415; 70450-TC; 70551-TC; 71045-TC-FY; 80053; 80184; 81003; 82550; 82607; 83605; 83735; 84100; 84443; 84484; 85025; 85027; 87040; 93005; 93010; 99284-25; J1644

== ENCOUNTER 2020-05-15 12:53 | Inpatient (IN) | payer MEDICARE, OTHER ==
[2020-05-15 13:18] VITALS: BMI 24.2
[2020-05-15 16:03] LABS: BASO % 0.5 % (0-2.0); HEMATOCRIT 38.5 % (32.4-45.2); HEMOGLOBIN 12.9 GM/dL (10.7-15.3); LYMPH % 17.2 % (8-40); MCH 30.9 pg (25.7-33.7); MCHC 33.5 g/dl (32.0-36.0); MEAN CELL VOLUME 92.3 fl (80-96); MEAN PLT VOLUME 9.1 fl (7.5-11.1); MONO % 8.9 % (3.8-10.2); NEUT % 63.4 % (42.8-82.8); PLATELET COUNT 233 K/MM3 (134-434); RBC 4.17 M/mm3 (3.60-5.2); RDW 14.3 % (11.6-15.6); WHITE BLOOD COUNT 7.2 K/mm3 (4.0-10.0)
[2020-05-15 16:26] LABS: POTASSIUM 4.1 mmol/L (3.5-5.1)
[2020-05-15 16:27] LABS: BLOOD UREA NITROGEN 13.5 mg/dL (7-18); CALCIUM 9.1 mg/dL (8.5-10.1)
[2020-05-15 16:31] LABS: CREATININE 0.6 mg/dL (0.55-1.3)
[2020-05-15] MEDS ORDERED: ALBUTEROL SO4 HFA INHALER IH PRN (18:02)
[2020-05-15 19:02] LABS: EPI CELLS 36 /uL (0-25.1); HYALINE CASTS 2 /uL (0-3.1); PH,URINE 7.5 (5.0-8.0); URINE APPEARANCE CLOUDY; URINE BACTERIA >9,000 /uL (0-1359); URINE BILIRUBIN NEGATIVE (NEGATIVE); URINE COLOR YELLOW; URINE GLUCOSE (UA) NEGATIVE (NEGATIVE); URINE KETONE NEGATIVE (NEGATIVE); URINE LEUK ESTERASE TRACE (NEGATIVE); URINE NITRITE NEGATIVE (NEGATIVE); URINE PROTEIN NEGATIVE (NEGATIVE); URINE RBC 112 /uL (0-23.9); URINE UROBILINOGEN 0.2 mg/dL (0.2-1.0); URINE WBC 93 /uL (0-25.8)
[2020-05-15] MEDS ORDERED: ATORVASTATIN CA 10 MG TABLET (FP) PO SCH (22:00)
[2020-05-15] MEDS ORDERED: levETIRAcetam 500 MG TABLET (FP) PO ONE (22:14)
[2020-05-15] MEDS ORDERED: ATORVASTATIN CA 10 MG TABLET (FP) ONE (22:14)
[2020-05-15] MEDS ORDERED: PHENobarbital 30 MG TABLET ONE (22:17)
[2020-05-15] MEDS: levETIRAcetam 500 MG TABLET (FP) PO SCH (22:25)
[2020-05-15] MEDS: PHENobarbital 30 MG TABLET PO SCH (22:25)
[2020-05-16] MEDS ORDERED: MEMANTINE HCL 10 MG TABLET (FP) PO SCH (10:00)
[2020-05-16] MEDS ORDERED: PANTOPRAZOLE 40 MG TABLET PO SCH (10:00)
[2020-05-16] MEDS ORDERED: ASPIRIN COATED 81 MG TABLET.EC PO SCH (10:00)
[2020-05-16] MEDS ORDERED: ESCITALOPRAM OXALATE 10 MG TABLET PO SCH (10:00)
[2020-05-16] MEDS ORDERED: ASPIRIN COATED 81 MG TABLET.EC ONE (11:38)
[2020-05-16] MEDS ORDERED: levETIRAcetam 500 MG TABLET (FP) PO ONE (11:38)
[2020-05-16] MEDS ORDERED: PHENobarbital 30 MG TABLET ONE (11:38)
[2020-05-16] MEDS ORDERED: PANTOPRAZOLE 40 MG TABLET ONE (11:38)
[2020-05-16] MEDS ORDERED: ESCITALOPRAM OXALATE 10 MG TABLET ONE (11:39)
[2020-05-16 11:46] VITALS: TEMP 97.8
[2020-05-16] MEDS: levETIRAcetam 500 MG TABLET (FP) PO SCH (12:09)
[2020-05-16] MEDS: PHENobarbital 30 MG TABLET PO SCH (12:10)
[2020-05-16 12:24] LABS: BASO % 0.5 % (0-2.0); EOS % 1.7 % (0-4.5); HEMATOCRIT 44.2 % (32.4-45.2); HEMOGLOBIN 14.7 GM/dL (10.7-15.3); LYMPH % 10.8 % (8-40); MCH 30.8 pg (25.7-33.7); MCHC 33.2 g/dl (32.0-36.0); MEAN CELL VOLUME 92.7 fl (80-96); MEAN PLT VOLUME 9.5 fl (7.5-11.1); MONO % 8.1 % (3.8-10.2); NEUT % 78.9 % (42.8-82.8); PLATELET COUNT 205 K/MM3 (134-434); RBC 4.76 M/mm3 (3.60-5.2); RDW 14.2 % (11.6-15.6); WHITE BLOOD COUNT 9.5 K/mm3 (4.0-10.0)
[2020-05-16 12:32] LABS: INR 1.01 (0.83-1.09); PROTHROMBIN TIME (PATIENT) 12.4 SEC (9.7-13.0)
[2020-05-16 12:34] LABS: ACTIVATED PTT 33.8 SECONDS (25.2-36.5)
[2020-05-16 12:52] LABS: POTASSIUM 3.8 mmol/L (3.5-5.1)
[2020-05-16 12:53] LABS: CALCIUM 9.8 mg/dL (8.5-10.1)
[2020-05-16 12:54] LABS: ALBUMIN 3.9 g/dl (3.4-5.0); BLOOD UREA NITROGEN 12.6 mg/dL (7-18)
[2020-05-16 12:57] LABS: CREATININE 0.6 mg/dL (0.55-1.3)
[2020-05-16 12:59] LABS: BILIRUBIN,TOTAL 0.2 mg/dL (0.2-1); TOT PROT 8.2 g/dl (6.4-8.2)
[2020-05-16 21:29] VITALS: BP 162/93; PULSE 77
== END 2020-05-16 21:46 | DRG 57 ==
LOC: JER 12:53 → JERBED 17:56
PROVIDERS: ATTEND Internal Medicine
DX: G30.9 Alzheimer's disease, unspecified (principal); F02.80 Dementia in other diseases classified elsewhere, unspecified severity, without behavioral disturbance, psychotic disturbance, mood disturbance, and anxiety; J45.909 Unspecified asthma, uncomplicated; G40.909 Epilepsy, unspecified, not intractable, without status epilepticus; E78.5 Hyperlipidemia, unspecified; I10 Essential (primary) hypertension; F32.9 Major depressive disorder, single episode, unspecified
CPT/HCPCS: 36415; 71045-TC-FY; 74019-TC-FY; 80048; 80053; 81003; 82962; 85025; 85610; 85730; 86769; 87086; 87186; 93005; 93010; 99285-25; C9803; U0003

== ENCOUNTER 2020-06-03 15:30 | Inpatient (IN) | payer OTHER ==
[2020-06-03] MEDS ORDERED: ACETAMINOPHEN 1000 MG/100 ML VIAL (NON FORMULARY) IVPB ONE (16:21)
[2020-06-03] MEDS ORDERED: SODIUM CHLORIDE 1,000 ML IV SCH (17:00)
[2020-06-03] MEDS ORDERED: ACETAMINOPHEN INJECTION 100 ML IVPB ONE (17:54)
[2020-06-03 18:09] LABS: BASO % 0.3 % (0-2.0); EOS % 0.6 % (0-4.5); HEMATOCRIT 45.7 % (32.4-45.2); LYMPH % 11.1 % (8-40); MCH 30.4 pg (25.7-33.7); MCHC 32.9 g/dl (32.0-36.0); MEAN CELL VOLUME 92.6 fl (80-96); MEAN PLT VOLUME 12.2 fl (7.5-11.1); MONO % 5.9 % (3.8-10.2); NEUT % 82.1 % (42.8-82.8); PLATELET COUNT 225 K/MM3 (134-434); RBC 4.94 M/mm3 (3.60-5.2); RDW 14.3 % (11.6-15.6); WHITE BLOOD COUNT 9.5 K/mm3 (4.0-10.0)
[2020-06-03 18:16] LABS: INR 1.57 (0.83-1.09); PROTHROMBIN TIME (PATIENT) 18.8 SEC (9.7-13.0)
[2020-06-03 18:19] LABS: ACTIVATED PTT 32.1 SECONDS (25.2-36.5)
[2020-06-03 18:28] LABS: CHLORIDE 121 mmol/L (98-107); POTASSIUM 3.5 mmol/L (3.5-5.1); SODIUM 158 mmol/L (136-145)
[2020-06-03 18:31] LABS: ALBUMIN 2.7 g/dl (3.4-5.0); ANION GAP 9 MMOL/L (8-16); BLOOD UREA NITROGEN 35.6 mg/dL (7-18); CO2 28 mmol/L (21-32); GLUCOSE,RANDOM 133 mg/dL (74-106)
[2020-06-03 18:33] LABS: BILIRUBIN,DIRECT 0.2 mg/dL (0.0-0.2); SGOT/AST 20 U/L (15-37); SGPT/ALT 12 U/L (13-61)
[2020-06-03 18:34] LABS: CREATININE 0.8 mg/dL (0.55-1.3)
[2020-06-03 18:35] LABS: BILIRUBIN,TOTAL 0.4 mg/dL (0.2-1); LDH 311 U/L (84-246); TOT PROT 7.2 g/dl (6.4-8.2)
[2020-06-03 18:36] LABS: ALK PHOS 95 U/L (45-117)
[2020-06-03 19:16] LABS: URINE APPEARANCE TURBID; URINE BILIRUBIN MODERATE (NEGATIVE); URINE COLOR BROWN; URINE GLUCOSE (UA) NEGATIVE (NEGATIVE); URINE KETONE NEGATIVE (NEGATIVE)
[2020-06-03 19:17] LABS: PH,URINE > 9.0 (5.0-8.0); URINE PROTEIN 100 (NEGATIVE); URINE UROBILINOGEN 0.2 mg/dL (0.2-1.0)
[2020-06-03 19:19] LABS: URINE LEUK ESTERASE 4+ (NEGATIVE); URINE NITRITE POSITIVE (NEGATIVE)
[2020-06-03 19:27] LABS: URINE RBC 8141.8 /uL (0-23.9)
[2020-06-03 19:28] LABS: EPI CELLS 141.9 /uL (0-25.1); HYALINE CASTS 464.15 /uL (0-3.1); URINE WBC 14492.1 /uL (0-25.8)
[2020-06-03] MEDS ORDERED: PIPERACILLIN/TAZOB 3.375 GM 3.375 GM in DEXTROSE 5%-WATER - 50 ML IVPB ONE (19:29)
[2020-06-03] MEDS ORDERED: SODIUM CHLORIDE 0.45% 1,000 ML IV SCH (19:30)
[2020-06-03] MEDS ORDERED: PIPERACILLIN/TAZOB 3.375 GM 3.375 GM/50 ML BAG IVPB ONE (19:32)
[2020-06-03] MEDS: SODIUM CHLORIDE 0.45%/POT 20 MEQ/1,000 ML INFUS.BAG IV SCH (19:58)
[2020-06-03] MEDS ORDERED: ENOXAPARIN NA (PORCINE) 40 MG/0.4 ML DISP.SYRIN SQ ONE (19:59)
[2020-06-03] MEDS: ENOXAPARIN NA (PORCINE) 40 MG/0.4 ML DISP.SYRIN SQ SCH (20:02)
[2020-06-04] MEDS ORDERED: ALBUTEROL SO4 HFA INHALER IH PRN (04:48)
[2020-06-04] MEDS: PIPERACILLIN/TAZOB 2.25 GM 2.25 GM in DEXTROSE 5%-WATER - 50 ML IVPB SCH ×3 (05:06→17:51)
[2020-06-04] MEDS ORDERED: PIPERACILLIN/TAZOBACTAM 2.25 GM VIAL IVPB ONE ×2 (05:11→08:50)
[2020-06-04] MEDS ORDERED: DEXTROSE 5%-WATER - 50 ML IVPB ONE ×2 (05:11→08:50)
[2020-06-04] MEDS: SODIUM CHLORIDE 0.45%/POT 20 MEQ/1,000 ML INFUS.BAG IV SCH (05:47)
[2020-06-04] MEDS ORDERED: PT OWN MED DRAWER 7, Y5N ONE (08:50)
[2020-06-04] MEDS ORDERED: FLU VACCINE (FLULAVAL) PF 60 MCG/0.5 ML SYRINGE 2020-2021 IM ONE (10:00)
[2020-06-04] MEDS ORDERED: PNEUMOC 13-VAL CONJ-DIP CRM/PF 0.5 ML DISP.SYRIN IM ONE (10:00)
[2020-06-04] MEDS ORDERED: PANTOPRAZOLE 40 MG TABLET PO SCH (10:00)
[2020-06-04] MEDS: PHENobarbital 30 MG TABLET PO SCH ×2 (10:29→21:53)
[2020-06-04] MEDS: ENOXAPARIN NA (PORCINE) 40 MG/0.4 ML DISP.SYRIN SQ SCH (10:29)
[2020-06-04] MEDS: levETIRAcetam 500 MG TABLET (FP) PO SCH ×2 (10:29→21:53)
[2020-06-04] MEDS: ESCITALOPRAM OXALATE 10 MG TABLET PO SCH (10:30)
[2020-06-04] MEDS: MEMANTINE HCL 10 MG TABLET (FP) PO SCH (10:30)
[2020-06-04 11:26] LABS: HEMATOCRIT 41.6 % (32.4-45.2); HEMOGLOBIN 13.3 GM/dL (10.7-15.3); MCH 29.8 pg (25.7-33.7); MEAN CELL VOLUME 93.2 fl (80-96); MEAN PLT VOLUME 12.4 fl (7.5-11.1); PLATELET COUNT 181 K/MM3 (134-434); RBC 4.47 M/mm3 (3.60-5.2); RDW 14.2 % (11.6-15.6); WHITE BLOOD COUNT 6.5 K/mm3 (4.0-10.0)
[2020-06-04 11:50] LABS: POTASSIUM 3.5 mmol/L (3.5-5.1)
[2020-06-04 11:51] LABS: CALCIUM 8.6 mg/dL (8.5-10.1)
[2020-06-04 11:52] LABS: BLOOD UREA NITROGEN 31.7 mg/dL (7-18)
[2020-06-04 11:55] LABS: CREATININE 0.6 mg/dL (0.55-1.3)
[2020-06-04] MEDS ORDERED: SODIUM CHLORIDE 0.45% 1,000 ML IV SCH (14:30)
[2020-06-04] MEDS ORDERED: VANCOMYCIN 1 GM in D5W (PRE-DOCKED) 1,000 MG/250 ML IVPB ONE (15:00)
[2020-06-04] MEDS: ATORVASTATIN CA 10 MG TABLET (FP) PO SCH (21:53)
[2020-06-05 09:01] LABS: HEMOGLOBIN 11.8 GM/dL (10.7-15.3); MCH 30.2 pg (25.7-33.7); MCHC 32.7 g/dl (32.0-36.0); MEAN CELL VOLUME 92.3 fl (80-96); MEAN PLT VOLUME 12.5 fl (7.5-11.1); PLATELET COUNT 194 K/MM3 (134-434); RDW 14.2 % (11.6-15.6); WHITE BLOOD COUNT 6.8 K/mm3 (4.0-10.0)
[2020-06-05 09:28] LABS: POTASSIUM 3.2 mmol/L (3.5-5.1)
[2020-06-05 09:34] LABS: ALBUMIN 2.1 g/dl (3.4-5.0); BLOOD UREA NITROGEN 27.5 mg/dL (7-18); CALCIUM 8.5 mg/dL (8.5-10.1)
[2020-06-05 09:35] LABS: MAGNESIUM 2.1 mg/dL (1.8-2.4)
[2020-06-05 09:37] LABS: CREATININE 0.7 mg/dL (0.55-1.3); PHOSPHOROUS 2.2 mg/dL (2.5-4.9)
[2020-06-05 09:38] LABS: BILIRUBIN,TOTAL 0.3 mg/dL (0.2-1)
[2020-06-05 09:39] LABS: TOT PROT 5.8 g/dl (6.4-8.2)
[2020-06-05] MEDS ORDERED: DEXTROSE 5%-WATER - 50 ML IVPB ONE ×2 (10:45→18:59)
[2020-06-05] MEDS ORDERED: PIPERACILLIN/TAZOBACTAM 2.25 GM VIAL IVPB ONE ×2 (10:45→18:59)
[2020-06-05] MEDS: PIPERACILLIN/TAZOB 2.25 GM 2.25 GM in DEXTROSE 5%-WATER - 50 ML IVPB SCH ×3 (10:53→19:08)
[2020-06-05] MEDS: ENOXAPARIN NA (PORCINE) 40 MG/0.4 ML DISP.SYRIN SQ SCH (10:54)
[2020-06-05] MEDS: MEMANTINE HCL 10 MG TABLET (FP) PO SCH (10:55)
[2020-06-05] MEDS: levETIRAcetam 500 MG TABLET (FP) PO SCH (10:55)
[2020-06-05] MEDS: ESCITALOPRAM OXALATE 10 MG TABLET PO SCH (10:55)
[2020-06-05] MEDS: PHENobarbital 30 MG TABLET PO SCH (10:56)
[2020-06-05] MEDS: FAMOTIDINE 40 MG/5 ML ORAL SUSPENSION PO SCH ×2 (15:32→21:57)
[2020-06-05] MEDS: levETIRAcetam 500 MG/5 ML INJECTION VIAL IVPB SCH (21:02)
[2020-06-05] MEDS: PHENobarbital SODIUM 65 MG/1 ML VIAL IVPB SCH (21:52)
[2020-06-05] MEDS: ATORVASTATIN CA 10 MG TABLET (FP) PO SCH (21:57)
[2020-06-06] MEDS ORDERED: PIPERACILLIN/TAZOBACTAM 2.25 GM VIAL IVPB ONE ×3 (00:35→16:59)
[2020-06-06] MEDS ORDERED: DEXTROSE 5%-WATER - 50 ML IVPB ONE ×3 (00:35→16:59)
[2020-06-06] MEDS: PIPERACILLIN/TAZOB 2.25 GM 2.25 GM in DEXTROSE 5%-WATER - 50 ML IVPB SCH ×3 (01:25→17:08)
[2020-06-06 10:08] LABS: HEMATOCRIT 34.2 % (32.4-45.2); HEMOGLOBIN 11.1 GM/dL (10.7-15.3); MCH 30.1 pg (25.7-33.7); MCHC 32.6 g/dl (32.0-36.0); MEAN CELL VOLUME 92.5 fl (80-96); MEAN PLT VOLUME 12.4 fl (7.5-11.1); PLATELET COUNT 227 K/MM3 (134-434); RDW 14.1 % (11.6-15.6)
[2020-06-06 10:45] LABS: POTASSIUM 3.1 mmol/L (3.5-5.1)
[2020-06-06 10:47] LABS: CALCIUM 8.3 mg/dL (8.5-10.1)
[2020-06-06 10:48] LABS: BLOOD UREA NITROGEN 25.3 mg/dL (7-18)
[2020-06-06 10:51] LABS: CREATININE 0.8 mg/dL (0.55-1.3)
[2020-06-06] MEDS: levETIRAcetam 500 MG/5 ML INJECTION VIAL IVPB SCH ×2 (10:55→22:17)
[2020-06-06] MEDS: PHENobarbital SODIUM 65 MG/1 ML VIAL IVPB SCH ×2 (10:55→22:43)
[2020-06-06] MEDS: FAMOTIDINE 40 MG/5 ML ORAL SUSPENSION PO SCH ×2 (10:55→22:13)
[2020-06-06] MEDS ORDERED: ACETAMINOPHEN 1000 MG/100 ML VIAL (NON FORMULARY) IVPB PRN (11:54)
[2020-06-06] MEDS: KCL 10 MEQ IVPB 10 MEQ/100 ML INFUS.BAG IVPB SCH ×3 (13:35→16:04)
[2020-06-06] MEDS ORDERED: POTASSIUM PHOSPHATE 30 MM in DEXTROSE 5%-WATER - 500 ML IVPB ONE (14:49)
[2020-06-06] MEDS ORDERED: AMINO ACIDS 4.25%/D5W 1,000 ML IV SCH (15:00)
[2020-06-06] MEDS: POTASSIUM CHLORIDE 10 MEQ in AMINO ACIDS 4.25%/D5W 1,000 ML IV SCH (20:25)
[2020-06-06 21:52] LABS: POTASSIUM 3.7 mmol/L (3.5-5.1)
[2020-06-06 21:53] LABS: CALCIUM 8.3 mg/dL (8.5-10.1)
[2020-06-06 21:54] LABS: BLOOD UREA NITROGEN 24.8 mg/dL (7-18)
[2020-06-06 21:57] LABS: CREATININE 0.9 mg/dL (0.55-1.3)
[2020-06-06] MEDS: ATORVASTATIN CA 10 MG TABLET (FP) PO SCH (22:13)
[2020-06-07] MEDS ORDERED: PIPERACILLIN/TAZOBACTAM 2.25 GM VIAL IVPB ONE ×3 (01:27→17:03)
[2020-06-07] MEDS ORDERED: DEXTROSE 5%-WATER - 50 ML IVPB ONE ×3 (01:28→17:03)
[2020-06-07] MEDS: PIPERACILLIN/TAZOB 2.25 GM 2.25 GM in DEXTROSE 5%-WATER - 50 ML IVPB SCH ×3 (01:45→17:59)
[2020-06-07] MEDS: POTASSIUM CHLORIDE 10 MEQ in AMINO ACIDS 4.25%/D5W 1,000 ML IV SCH ×3 (02:08→14:37)
[2020-06-07] MEDS ORDERED: POTASSIUM CHLORIDE 10 MEQ in SODIUM CHLORIDE 0.45% 1,000 ML IVPB SCH (07:15)
[2020-06-07] MEDS ORDERED: SODIUM CHLORIDE 0.45% 1,000 ML IV SCH ×2 (08:30→14:52)
[2020-06-07] MEDS: levETIRAcetam 500 MG/5 ML INJECTION VIAL IVPB SCH ×2 (09:15→21:37)
[2020-06-07] MEDS: PHENobarbital SODIUM 65 MG/1 ML VIAL IVPB SCH ×2 (11:03→21:12)
[2020-06-07] MEDS: FAMOTIDINE 20 MG/50 ML IVPB 20 MG/50 ML MG IVPB SCH ×2 (12:16→21:12)
[2020-06-07 12:41] LABS: BASO % 0.3 % (0-2.0); EOS % 3.5 % (0-4.5); HEMATOCRIT 32.6 % (32.4-45.2); HEMOGLOBIN 10.6 GM/dL (10.7-15.3); LYMPH % 13.5 % (8-40); MCH 30.2 pg (25.7-33.7); MCHC 32.5 g/dl (32.0-36.0); MEAN CELL VOLUME 92.8 fl (80-96); MEAN PLT VOLUME 11.7 fl (7.5-11.1); MONO % 8.2 % (3.8-10.2); NEUT % 74.5 % (42.8-82.8); PLATELET COUNT 222 K/MM3 (134-434); RBC 3.51 M/mm3 (3.60-5.2); RDW 14.3 % (11.6-15.6); WHITE BLOOD COUNT 10.2 K/mm3 (4.0-10.0)
[2020-06-07 13:03] LABS: POTASSIUM 3.1 mmol/L (3.5-5.1)
[2020-06-07 13:06] LABS: BLOOD UREA NITROGEN 23.8 mg/dL (7-18); CALCIUM 7.9 mg/dL (8.5-10.1); MAGNESIUM 1.7 mg/dL (1.8-2.4)
[2020-06-07 13:09] LABS: CREATININE 0.8 mg/dL (0.55-1.3)
[2020-06-07 13:10] LABS: BILIRUBIN,TOTAL 0.2 mg/dL (0.2-1); TOT PROT 5.9 g/dl (6.4-8.2)
[2020-06-07 13:58] LABS: ANISOCYTOSIS 0; HELMET CELLS 0; HOWELL-JOLLY BODIES 0; MACROCYTOSIS 0; OVALOCYTE 0; PLATELET ESTIMATE NORMAL; ROULEAU 0; SICKELED CELLS 0; TARGET CELLS 0; TEAR DROP CELLS 0; TOXIC GRANULATION 0
[2020-06-07] MEDS ORDERED: MAGNESIUM SULF 50% (8.12 MEQ/2 ML-1 GM VIAL) IVPB ONE ×2 (15:08→20:00)
[2020-06-07] MEDS ORDERED: POTASSIUM CHLORIDE 10 MEQ in SODIUM CHLORIDE 0.45% 1,000 ML IV SCH (15:10)
[2020-06-07] MEDS: KCL 10 MEQ IVPB 10 MEQ/100 ML INFUS.BAG IVPB SCH ×3 (15:47→22:25)
[2020-06-07] MEDS ORDERED: POTASSIUM PHOSPHATE 20 MM in DEXTROSE 5%-WATER - 250 ML IVPB ONE (17:16)
[2020-06-07] MEDS: ATORVASTATIN CA 10 MG TABLET (FP) PO SCH (21:36)
[2020-06-07 21:58] LABS: CALCIUM 7.8 mg/dL (8.5-10.1)
[2020-06-07 21:59] LABS: BLOOD UREA NITROGEN 19.4 mg/dL (7-18)
[2020-06-07 22:03] LABS: CREATININE 0.7 mg/dL (0.55-1.3)
[2020-06-07 22:11] LABS: POTASSIUM 2.9 mmol/L (3.5-5.1)
[2020-06-08] MEDS ORDERED: PIPERACILLIN/TAZOBACTAM 2.25 GM VIAL IVPB ONE ×3 (01:10→17:01)
[2020-06-08] MEDS ORDERED: DEXTROSE 5%-WATER - 50 ML IVPB ONE ×3 (01:11→17:01)
[2020-06-08] MEDS: PIPERACILLIN/TAZOB 2.25 GM 2.25 GM in DEXTROSE 5%-WATER - 50 ML IVPB SCH ×3 (01:52→17:19)
[2020-06-08] MEDS: KCL 10 MEQ IVPB 10 MEQ/100 ML INFUS.BAG IVPB SCH ×3 (08:34→13:21)
[2020-06-08] MEDS: levETIRAcetam 500 MG/5 ML INJECTION VIAL IVPB SCH ×2 (09:53→21:53)
[2020-06-08] MEDS: PHENobarbital SODIUM 65 MG/1 ML VIAL IVPB SCH ×2 (10:19→22:56)
[2020-06-08 11:23] LABS: BASO % 1.1 % (0-2.0); HEMATOCRIT 31.4 % (32.4-45.2); HEMOGLOBIN 10.2 GM/dL (10.7-15.3); LYMPH % 12.4 % (8-40); MCH 29.8 pg (25.7-33.7); MCHC 32.5 g/dl (32.0-36.0); MEAN CELL VOLUME 91.7 fl (80-96); MEAN PLT VOLUME 11.8 fl (7.5-11.1); MONO % 7.6 % (3.8-10.2); NEUT % 74.9 % (42.8-82.8); PLATELET COUNT 218 K/MM3 (134-434); RBC 3.42 M/mm3 (3.60-5.2); WHITE BLOOD COUNT 11.3 K/mm3 (4.0-10.0)
[2020-06-08 11:43] LABS: POTASSIUM 3.5 mmol/L (3.5-5.1)
[2020-06-08] MEDS: FAMOTIDINE 20 MG/50 ML IVPB 20 MG/50 ML MG IVPB SCH ×2 (11:44→21:10)
[2020-06-08 11:45] LABS: CALCIUM 7.7 mg/dL (8.5-10.1)
[2020-06-08 11:46] LABS: BLOOD UREA NITROGEN 11.4 mg/dL (7-18); MAGNESIUM 2.7 mg/dL (1.8-2.4)
[2020-06-08 11:49] LABS: CREATININE 0.5 mg/dL (0.55-1.3)
[2020-06-08 11:50] LABS: BILIRUBIN,TOTAL 0.5 mg/dL (0.2-1); TOT PROT 5.7 g/dl (6.4-8.2)
[2020-06-08 12:00] LABS: ANISOCYTOSIS 1+; MACROCYTOSIS 1+; PLATELET ESTIMATE NORMAL
[2020-06-08] MEDS: POTASSIUM CHLORIDE 10 MEQ in AMINO ACIDS 4.25%/D5W 1,000 ML IV SCH (15:05)
[2020-06-08] MEDS: PIPERACILLIN/TAZOB 3.375 GM 3.375 GM in DEXTROSE 5%-WATER - 50 ML IVPB SCH (19:13)
[2020-06-08 20:41] LABS: EPI CELLS 13 /uL (0-25.1); HYALINE CASTS 123 /uL (0-3.1); URINE APPEARANCE TURBID; URINE BILIRUBIN 2+ (NEGATIVE); URINE COLOR RED; URINE GLUCOSE (UA) NEGATIVE (NEGATIVE); URINE KETONE NEGATIVE (NEGATIVE); URINE LEUK ESTERASE 3+ (NEGATIVE); URINE NITRITE POSITIVE (NEGATIVE); URINE PROTEIN 2+ (NEGATIVE); URINE RBC 31222 /uL (0-23.9); URINE UROBILINOGEN 0.2 mg/dL (0.2-1.0); URINE WBC 7675 /uL (0-25.8)
[2020-06-08 21:36] LABS: URINE BACTERIA 0 /uL (0-1359); YEAST FEW (NEGATIVE)
[2020-06-08] MEDS ORDERED: VANCOMYCIN 750 MG in DEXTROSE 5%-WATER - 150 ML IVPB SCH (22:00)
[2020-06-08] MEDS: ATORVASTATIN CA 10 MG TABLET (FP) PO SCH (22:20)
[2020-06-08] MEDS: VANCOMYCIN 750 MG in DEXTROSE 5%-WATER - 250 ML IVPB SCH (23:23)
[2020-06-09] MEDS ORDERED: PIPERACILLIN/TAZOBACTAM 3.375 GM VIAL IVPB ONE ×3 (01:05→17:47)
[2020-06-09] MEDS ORDERED: DEXTROSE 5%-WATER - 50 ML IVPB ONE ×3 (01:05→17:47)
[2020-06-09] MEDS: PIPERACILLIN/TAZOB 3.375 GM 3.375 GM in DEXTROSE 5%-WATER - 50 ML IVPB SCH ×3 (02:23→18:17)
[2020-06-09] MEDS: POTASSIUM CHLORIDE 10 MEQ in AMINO ACIDS 4.25%/D5W 1,000 ML IV SCH (05:44)
[2020-06-09] MEDS: levETIRAcetam 500 MG/5 ML INJECTION VIAL IVPB SCH ×2 (09:40→22:08)
[2020-06-09 09:45] LABS: BASO % 0.2 % (0-2.0); EOS % 3.6 % (0-4.5); HEMATOCRIT 28.6 % (32.4-45.2); HEMOGLOBIN 9.5 GM/dL (10.7-15.3); LYMPH % 14.1 % (8-40); MCH 30.4 pg (25.7-33.7); MCHC 33.3 g/dl (32.0-36.0); MEAN CELL VOLUME 91.3 fl (80-96); MEAN PLT VOLUME 11.1 fl (7.5-11.1); MONO % 9.5 % (3.8-10.2); NEUT % 72.6 % (42.8-82.8); PLATELET COUNT 205 K/MM3 (134-434); RBC 3.14 M/mm3 (3.60-5.2); RDW 13.8 % (11.6-15.6); WHITE BLOOD COUNT 9.6 K/mm3 (4.0-10.0)
[2020-06-09 10:01] LABS: POTASSIUM 3.1 mmol/L (3.5-5.1)
[2020-06-09] MEDS: PHENobarbital SODIUM 65 MG/1 ML VIAL IVPB SCH ×2 (10:16→23:29)
[2020-06-09 10:26] LABS: ALBUMIN 1.8 g/dl (3.4-5.0); BILIRUBIN,TOTAL 0.2 mg/dL (0.2-1); BLOOD UREA NITROGEN 14.5 mg/dL (7-18); TOT PROT 5.6 g/dl (6.4-8.2)
[2020-06-09 10:29] LABS: CREATININE 0.5 mg/dL (0.55-1.3); PHOSPHOROUS 2.2 mg/dL (2.5-4.9)
[2020-06-09 10:30] LABS: ANISOCYTOSIS 1+; PLATELET ESTIMATE NORMAL
[2020-06-09 10:31] LABS: CALCIUM 7.8 mg/dL (8.5-10.1)
[2020-06-09 10:33] LABS: MAGNESIUM 2.3 mg/dL (1.8-2.4)
[2020-06-09] MEDS ORDERED: NAPH,MB-DB/K PH,MBDB POWDER PACKET PO ONE (12:06)
[2020-06-09] MEDS: FAMOTIDINE 20 MG/50 ML IVPB 20 MG/50 ML MG IVPB SCH ×2 (12:07→21:23)
[2020-06-09] MEDS ORDERED: SODIUM PHOSPHATE - 20 MM in SODIUM CHLORIDE 250 ML IVPB ONE (12:55)
[2020-06-09] MEDS ORDERED: PT OWN MED DRAWER 7, Y5N ONE ×3 (13:24→23:22)
[2020-06-09] MEDS: VANCOMYCIN 750 MG in DEXTROSE 5%-WATER - 250 ML IVPB SCH (13:29)
[2020-06-09] MEDS: KCL 10 MEQ IVPB 10 MEQ/100 ML INFUS.BAG IVPB SCH ×3 (15:31→19:04)
[2020-06-09] MEDS: POTASSIUM CHLORIDE 20 MEQ in AMINO ACIDS 4.25%/D5W 1,000 ML IV SCH (18:18)
[2020-06-09] MEDS: ATORVASTATIN CA 10 MG TABLET (FP) PO SCH (21:23)
[2020-06-10] MEDS: VANCOMYCIN 750 MG in DEXTROSE 5%-WATER - 250 ML IVPB SCH ×2 (00:07→12:18)
[2020-06-10] MEDS ORDERED: PIPERACILLIN/TAZOBACTAM 3.375 GM VIAL IVPB ONE ×3 (01:31→17:15)
[2020-06-10] MEDS ORDERED: DEXTROSE 5%-WATER - 50 ML IVPB ONE ×3 (01:32→17:16)
[2020-06-10] MEDS: PIPERACILLIN/TAZOB 3.375 GM 3.375 GM in DEXTROSE 5%-WATER - 50 ML IVPB SCH ×3 (03:08→17:21)
[2020-06-10] MEDS: POTASSIUM CHLORIDE 20 MEQ in AMINO ACIDS 4.25%/D5W 1,000 ML IV SCH ×2 (06:33→14:34)
[2020-06-10 08:58] LABS: BASO % 0.3 % (0-2.0); EOS % 4.4 % (0-4.5); HEMATOCRIT 27.2 % (32.4-45.2); HEMOGLOBIN 9.3 GM/dL (10.7-15.3); LYMPH % 18.9 % (8-40); MCH 30.9 pg (25.7-33.7); MEAN CELL VOLUME 90.8 fl (80-96); MEAN PLT VOLUME 10.4 fl (7.5-11.1); MONO % 10.4 % (3.8-10.2); PLATELET COUNT 214 K/MM3 (134-434); RDW 13.7 % (11.6-15.6); WHITE BLOOD COUNT 7.8 K/mm3 (4.0-10.0)
[2020-06-10 09:11] LABS: INR 1.63 (0.83-1.09); PROTHROMBIN TIME (PATIENT) 19.8 SEC (9.7-13.0)
[2020-06-10 09:14] LABS: ACTIVATED PTT 33.6 SECONDS (25.2-36.5)
[2020-06-10 09:16] LABS: ALBUMIN 1.8 g/dl (3.4-5.0); BLOOD UREA NITROGEN 13.4 mg/dL (7-18); CALCIUM 7.7 mg/dL (8.5-10.1); MAGNESIUM 1.9 mg/dL (1.8-2.4)
[2020-06-10 09:19] LABS: BILIRUBIN,TOTAL 0.2 mg/dL (0.2-1); CREATININE 0.4 mg/dL (0.55-1.3)
[2020-06-10 09:20] LABS: TOT PROT 5.5 g/dl (6.4-8.2)
[2020-06-10] MEDS: MULTIVITAMINS (DAILY MVI) TABLET (FP) PO SCH (11:02)
[2020-06-10] MEDS: FAMOTIDINE 20 MG/50 ML IVPB 20 MG/50 ML MG IVPB SCH ×2 (11:02→21:22)
[2020-06-10] MEDS: PHENobarbital SODIUM 65 MG/1 ML VIAL IVPB SCH ×2 (11:02→21:23)
[2020-06-10] MEDS: levETIRAcetam 500 MG/5 ML INJECTION VIAL IVPB SCH ×2 (11:02→21:22)
[2020-06-10 12:28] LABS: ANISOCYTOSIS 0; MACROCYTOSIS 0; PLATELET ESTIMATE NORMAL
[2020-06-10] MEDS: NAPH,MB-DB/K PH,MBDB POWDER PACKET PO SCH ×2 (15:39→21:23)
[2020-06-10] MEDS: KCL 10 MEQ IVPB 10 MEQ/100 ML INFUS.BAG IVPB SCH ×2 (15:42→17:14)
[2020-06-10] MEDS: POTASSIUM CHLORIDE 40 MEQ in AMINO ACIDS 4.25%/D5W 1,000 ML IV SCH (17:20)
[2020-06-10] MEDS: ATORVASTATIN CA 10 MG TABLET (FP) PO SCH (21:23)
[2020-06-11] MEDS ORDERED: PIPERACILLIN/TAZOBACTAM 3.375 GM VIAL IVPB ONE ×3 (01:37→18:06)
[2020-06-11] MEDS ORDERED: DEXTROSE 5%-WATER - 50 ML IVPB ONE ×3 (01:37→18:06)
[2020-06-11] MEDS: PIPERACILLIN/TAZOB 3.375 GM 3.375 GM in DEXTROSE 5%-WATER - 50 ML IVPB SCH ×3 (01:46→19:41)
[2020-06-11] MEDS: NAPH,MB-DB/K PH,MBDB POWDER PACKET PO SCH (06:08)
[2020-06-11] MEDS: POTASSIUM CHLORIDE 40 MEQ in AMINO ACIDS 4.25%/D5W 1,000 ML IV SCH ×2 (06:23→21:09)
[2020-06-11] MEDS: levETIRAcetam 500 MG/5 ML INJECTION VIAL IVPB SCH ×2 (10:12→21:10)
[2020-06-11 10:13] LABS: BASO % 0.2 % (0-2.0); EOS % 3.1 % (0-4.5); HEMOGLOBIN 9.5 GM/dL (10.7-15.3); LYMPH % 13.5 % (8-40); MCH 30.7 pg (25.7-33.7); MCHC 33.9 g/dl (32.0-36.0); MEAN CELL VOLUME 90.5 fl (80-96); MONO % 10.3 % (3.8-10.2); NEUT % 72.9 % (42.8-82.8); PLATELET COUNT 236 K/MM3 (134-434); RDW 13.5 % (11.6-15.6); WHITE BLOOD COUNT 8.9 K/mm3 (4.0-10.0)
[2020-06-11] MEDS: FAMOTIDINE 20 MG/50 ML IVPB 20 MG/50 ML MG IVPB SCH ×2 (10:13→21:09)
[2020-06-11] MEDS: PHENobarbital SODIUM 65 MG/1 ML VIAL IVPB SCH ×2 (10:16→21:10)
[2020-06-11] MEDS: MULTIVITAMINS (DAILY MVI) TABLET (FP) PO SCH ×2 (10:16→10:26)
[2020-06-11 10:29] LABS: POTASSIUM 3.5 mmol/L (3.5-5.1)
[2020-06-11 10:41] LABS: ALBUMIN 1.9 g/dl (3.4-5.0); CALCIUM 8.1 mg/dL (8.5-10.1)
[2020-06-11 10:42] LABS: BLOOD UREA NITROGEN 13.5 mg/dL (7-18); MAGNESIUM 1.8 mg/dL (1.8-2.4)
[2020-06-11 10:45] LABS: CREATININE 0.4 mg/dL (0.55-1.3); PHOSPHOROUS 1.7 mg/dL (2.5-4.9)
[2020-06-11 10:46] LABS: BILIRUBIN,TOTAL 0.2 mg/dL (0.2-1); TOT PROT 5.7 g/dl (6.4-8.2)
[2020-06-11] MEDS ORDERED: SODIUM PHOSPHATE - 20 MM in SODIUM CHLORIDE 250 ML IVPB ONE (12:55)
[2020-06-11] MEDS ORDERED: POTASSIUM PHOSPHATE 30 MM in DEXTROSE 5%-WATER - 500 ML IVPB ONE (13:30)
[2020-06-11 14:37] LABS: ANISOCYTOSIS 0; MACROCYTOSIS 0; PLATELET ESTIMATE NORMAL
[2020-06-11] MEDS: ATORVASTATIN CA 10 MG TABLET (FP) PO SCH (21:10)
[2020-06-12] MEDS ORDERED: PIPERACILLIN/TAZOBACTAM 3.375 GM VIAL IVPB ONE ×3 (02:18→16:50)
[2020-06-12] MEDS ORDERED: DEXTROSE 5%-WATER - 50 ML IVPB ONE ×3 (02:18→16:51)
[2020-06-12] MEDS: PIPERACILLIN/TAZOB 3.375 GM 3.375 GM in DEXTROSE 5%-WATER - 50 ML IVPB SCH ×3 (02:40→17:03)
[2020-06-12] MEDS: POTASSIUM CHLORIDE 40 MEQ in AMINO ACIDS 4.25%/D5W 1,000 ML IV SCH ×3 (03:40→17:03)
[2020-06-12 09:26] LABS: BASO % 0.5 % (0-2.0); EOS % 3.4 % (0-4.5); HEMATOCRIT 26.9 % (32.4-45.2); HEMOGLOBIN 9.2 GM/dL (10.7-15.3); LYMPH % 14.9 % (8-40); MCHC 34.3 g/dl (32.0-36.0); MEAN CELL VOLUME 90.4 fl (80-96); MEAN PLT VOLUME 9.7 fl (7.5-11.1); MONO % 9.5 % (3.8-10.2); NEUT % 71.7 % (42.8-82.8); PLATELET COUNT 238 K/MM3 (134-434); RBC 2.97 M/mm3 (3.60-5.2); RDW 13.4 % (11.6-15.6); WHITE BLOOD COUNT 8.1 K/mm3 (4.0-10.0)
[2020-06-12] MEDS: MULTIVITAMINS (DAILY MVI) TABLET (FP) PO SCH (09:32)
[2020-06-12 09:53] LABS: POTASSIUM 3.9 mmol/L (3.5-5.1)
[2020-06-12 10:26] LABS: CALCIUM 8.5 mg/dL (8.5-10.1)
[2020-06-12 10:27] LABS: ALBUMIN 1.9 g/dl (3.4-5.0); BLOOD UREA NITROGEN 15.1 mg/dL (7-18); MAGNESIUM 1.8 mg/dL (1.8-2.4)
[2020-06-12 10:28] LABS: CREATININE 0.5 mg/dL (0.55-1.3)
[2020-06-12 10:30] LABS: PHOSPHOROUS 2.2 mg/dL (2.5-4.9); TOT PROT 5.6 g/dl (6.4-8.2)
[2020-06-12 10:38] LABS: BILIRUBIN,TOTAL 0.4 mg/dL (0.2-1)
[2020-06-12] MEDS: PHENobarbital SODIUM 65 MG/1 ML VIAL IVPB SCH ×2 (11:21→22:12)
[2020-06-12] MEDS: levETIRAcetam 500 MG/5 ML INJECTION VIAL IVPB SCH ×2 (12:34→21:00)
[2020-06-12] MEDS: FAMOTIDINE 20 MG/50 ML IVPB 20 MG/50 ML MG IVPB SCH ×2 (13:54→22:45)
[2020-06-12] MEDS ORDERED: POTASSIUM PHOSPHATE 30 MM in DEXTROSE 5%-WATER - 500 ML IVPB ONE (19:02)
[2020-06-12] MEDS: ATORVASTATIN CA 10 MG TABLET (FP) PO SCH (21:40)
[2020-06-13] MEDS ORDERED: DEXTROSE 5%-WATER - 50 ML IVPB ONE ×3 (00:57→17:44)
[2020-06-13] MEDS ORDERED: PIPERACILLIN/TAZOBACTAM 3.375 GM VIAL IVPB ONE ×3 (00:57→17:44)
[2020-06-13] MEDS: PIPERACILLIN/TAZOB 3.375 GM 3.375 GM in DEXTROSE 5%-WATER - 50 ML IVPB SCH ×3 (01:02→18:13)
[2020-06-13] MEDS: POTASSIUM CHLORIDE 40 MEQ in AMINO ACIDS 4.25%/D5W 1,000 ML IV SCH ×3 (03:05→22:31)
[2020-06-13 09:00] LABS: BASO % 0.3 % (0-2.0); EOS % 3.5 % (0-4.5); HEMATOCRIT 27.5 % (32.4-45.2); HEMOGLOBIN 9.4 GM/dL (10.7-15.3); LYMPH % 12.4 % (8-40); MCH 30.8 pg (25.7-33.7); MCHC 34.2 g/dl (32.0-36.0); MEAN CELL VOLUME 90.1 fl (80-96); MEAN PLT VOLUME 9.1 fl (7.5-11.1); MONO % 9.9 % (3.8-10.2); NEUT % 73.9 % (42.8-82.8); PLATELET COUNT 272 K/MM3 (134-434); RBC 3.05 M/mm3 (3.60-5.2); RDW 13.5 % (11.6-15.6); WHITE BLOOD COUNT 8.1 K/mm3 (4.0-10.0)
[2020-06-13] MEDS: FAMOTIDINE 20 MG/50 ML IVPB 20 MG/50 ML MG IVPB SCH ×2 (10:22→21:05)
[2020-06-13] MEDS: levETIRAcetam 500 MG/5 ML INJECTION VIAL IVPB SCH ×2 (10:23→22:30)
[2020-06-13] MEDS: PHENobarbital SODIUM 65 MG/1 ML VIAL IVPB SCH ×2 (10:23→21:47)
[2020-06-13] MEDS: MULTIVITAMINS (DAILY MVI) TABLET (FP) PO SCH (10:24)
[2020-06-13 10:50] LABS: POTASSIUM 4.1 mmol/L (3.5-5.1)
[2020-06-13 10:55] LABS: CALCIUM 8.3 mg/dL (8.5-10.1); MAGNESIUM 1.7 mg/dL (1.8-2.4)
[2020-06-13 10:56] LABS: BLOOD UREA NITROGEN 14.6 mg/dL (7-18)
[2020-06-13 10:57] LABS: CREATININE 0.4 mg/dL (0.55-1.3); PHOSPHOROUS 3.9 mg/dL (2.5-4.9)
[2020-06-13 10:59] LABS: BILIRUBIN,TOTAL 0.2 mg/dL (0.2-1)
[2020-06-13] MEDS ORDERED: MAGNESIUM SULF 50% (8.12 MEQ/2 ML-1 GM VIAL) IVPB ONE (15:55)
[2020-06-13] MEDS: ATORVASTATIN CA 10 MG TABLET (FP) PO SCH (22:30)
[2020-06-14] MEDS ORDERED: DEXTROSE 5%-WATER - 50 ML IVPB ONE ×3 (00:44→17:55)
[2020-06-14] MEDS ORDERED: PIPERACILLIN/TAZOBACTAM 3.375 GM VIAL IVPB ONE ×3 (00:44→17:55)
[2020-06-14] MEDS: PIPERACILLIN/TAZOB 3.375 GM 3.375 GM in DEXTROSE 5%-WATER - 50 ML IVPB SCH ×3 (01:30→18:16)
[2020-06-14] MEDS: POTASSIUM CHLORIDE 40 MEQ in AMINO ACIDS 4.25%/D5W 1,000 ML IV SCH ×2 (04:47→18:16)
[2020-06-14 09:06] LABS: HEMATOCRIT 27.6 % (32.4-45.2); HEMOGLOBIN 9.4 GM/dL (10.7-15.3); MCH 30.8 pg (25.7-33.7); MCHC 34.1 g/dl (32.0-36.0); MEAN CELL VOLUME 90.3 fl (80-96); MEAN PLT VOLUME 9.1 fl (7.5-11.1); PLATELET COUNT 284 K/MM3 (134-434); RBC 3.06 M/mm3 (3.60-5.2); RDW 13.8 % (11.6-15.6); WHITE BLOOD COUNT 8.2 K/mm3 (4.0-10.0)
[2020-06-14] MEDS: PHENobarbital SODIUM 65 MG/1 ML VIAL IVPB SCH ×2 (09:27→23:46)
[2020-06-14] MEDS: MULTIVITAMINS (DAILY MVI) TABLET (FP) PO SCH (09:29)
[2020-06-14] MEDS: FAMOTIDINE 20 MG/50 ML IVPB 20 MG/50 ML MG IVPB SCH ×2 (09:30→21:24)
[2020-06-14] MEDS: levETIRAcetam 500 MG/5 ML INJECTION VIAL IVPB SCH ×2 (09:30→21:58)
[2020-06-14 09:32] LABS: POTASSIUM 3.8 mmol/L (3.5-5.1)
[2020-06-14 10:21] LABS: BLOOD UREA NITROGEN 13.7 mg/dL (7-18); CALCIUM 8.7 mg/dL (8.5-10.1)
[2020-06-14 10:25] LABS: CREATININE 0.5 mg/dL (0.55-1.3)
[2020-06-14 10:33] LABS: BILIRUBIN,TOTAL 0.7 mg/dL (0.2-1)
[2020-06-14] MEDS: ATORVASTATIN CA 10 MG TABLET (FP) PO SCH (23:00)
[2020-06-15] MEDS ORDERED: PIPERACILLIN/TAZOBACTAM 3.375 GM VIAL IVPB ONE ×2 (01:44→10:16)
[2020-06-15] MEDS ORDERED: DEXTROSE 5%-WATER - 50 ML IVPB ONE ×2 (01:44→10:16)
[2020-06-15] MEDS: PIPERACILLIN/TAZOB 3.375 GM 3.375 GM in DEXTROSE 5%-WATER - 50 ML IVPB SCH ×2 (02:09→10:35)
[2020-06-15] MEDS: POTASSIUM CHLORIDE 40 MEQ in AMINO ACIDS 4.25%/D5W 1,000 ML IV SCH ×2 (04:49→15:31)
[2020-06-15] MEDS: FAMOTIDINE 20 MG/50 ML IVPB 20 MG/50 ML MG IVPB SCH ×2 (10:34→21:02)
[2020-06-15] MEDS: MULTIVITAMINS (DAILY MVI) TABLET (FP) PO SCH (10:35)
[2020-06-15] MEDS: levETIRAcetam 500 MG/5 ML INJECTION VIAL IVPB SCH ×2 (10:36→22:40)
[2020-06-15] MEDS: PHENobarbital SODIUM 65 MG/1 ML VIAL IVPB SCH ×2 (10:45→22:03)
[2020-06-15 12:56] LABS: HEMATOCRIT 27.7 % (32.4-45.2); HEMOGLOBIN 9.4 GM/dL (10.7-15.3); MCH 31.1 pg (25.7-33.7); MCHC 34.1 g/dl (32.0-36.0); MEAN CELL VOLUME 91.2 fl (80-96); PLATELET COUNT 311 K/MM3 (134-434); RBC 3.04 M/mm3 (3.60-5.2); RDW 13.6 % (11.6-15.6); WHITE BLOOD COUNT 6.9 K/mm3 (4.0-10.0)
[2020-06-15] MEDS: ATORVASTATIN CA 10 MG TABLET (FP) PO SCH (21:10)
[2020-06-16] MEDS: POTASSIUM CHLORIDE 40 MEQ in AMINO ACIDS 4.25%/D5W 1,000 ML IV SCH ×2 (03:00→16:33)
[2020-06-16] MEDS: levETIRAcetam 500 MG/5 ML INJECTION VIAL IVPB SCH ×2 (09:35→23:18)
[2020-06-16] MEDS: PHENobarbital SODIUM 65 MG/1 ML VIAL IVPB SCH ×2 (09:35→23:55)
[2020-06-16] MEDS: FAMOTIDINE 20 MG/50 ML IVPB 20 MG/50 ML MG IVPB SCH ×2 (09:36→22:42)
[2020-06-16] MEDS: MULTIVITAMINS (DAILY MVI) TABLET (FP) PO SCH (09:36)
[2020-06-16 11:03] LABS: HEMATOCRIT 28.6 % (32.4-45.2); HEMOGLOBIN 9.7 GM/dL (10.7-15.3); MCH 30.8 pg (25.7-33.7); MCHC 33.9 g/dl (32.0-36.0); MEAN PLT VOLUME 8.5 fl (7.5-11.1); PLATELET COUNT 358 K/MM3 (134-434); RBC 3.15 M/mm3 (3.60-5.2); RDW 13.8 % (11.6-15.6); WHITE BLOOD COUNT 7.1 K/mm3 (4.0-10.0)
[2020-06-16 11:13] LABS: POTASSIUM 4.3 mmol/L (3.5-5.1)
[2020-06-16 11:17] LABS: ALBUMIN 2.1 g/dl (3.4-5.0); BLOOD UREA NITROGEN 15.8 mg/dL (7-18); MAGNESIUM 1.9 mg/dL (1.8-2.4)
[2020-06-16 11:19] LABS: CREATININE 0.4 mg/dL (0.55-1.3)
[2020-06-16 11:21] LABS: TOT PROT 6.1 g/dl (6.4-8.2)
[2020-06-16 11:25] LABS: BILIRUBIN,TOTAL 0.2 mg/dL (0.2-1)
[2020-06-16] MEDS ORDERED: ONDANSETRON 4 MG/2 ML VIAL IVPUSH PRN ×2 (16:34→21:32)
[2020-06-16] MEDS ORDERED: LACTATED RINGERS SOLUTION 1,000 ML IV SCH ×2 (16:45→21:32)
[2020-06-16] MEDS ORDERED: PROPOFOL 20 ML ONE (19:55)
[2020-06-16] MEDS ORDERED: ceFAZolin SODIUM 1 GM VIAL IVPB ONE (20:00)
[2020-06-16] MEDS ORDERED: ALBUTEROL SO4 HFA INHALER IH PRN (21:32)
[2020-06-16] MEDS: ATORVASTATIN CA 10 MG TABLET (FP) PO SCH (22:43)
[2020-06-17] MEDS ORDERED: POTASSIUM CHLORIDE 40 MEQ in AMINO ACIDS 4.25%/D5W 1,000 ML IV SCH (03:17)
[2020-06-17] MEDS: POTASSIUM CHLORIDE 40 MEQ in AMINO ACIDS 4.25%/D5W 1,000 ML IV SCH ×2 (10:04→21:22)
[2020-06-17] MEDS: levETIRAcetam 500 MG/5 ML INJECTION VIAL IVPB SCH ×2 (10:33→22:49)
[2020-06-17] MEDS: MULTIVITAMINS (DAILY MVI) TABLET (FP) PO SCH (10:35)
[2020-06-17] MEDS: FAMOTIDINE 20 MG/50 ML IVPB 20 MG/50 ML MG IVPB SCH ×2 (10:35→22:55)
[2020-06-17] MEDS: PHENobarbital SODIUM 65 MG/1 ML VIAL IVPB SCH ×2 (10:36→22:51)
[2020-06-17] MEDS: ATORVASTATIN CA 10 MG TABLET (FP) PO SCH (22:56)
[2020-06-18] MEDS: PHENobarbital SODIUM 65 MG/1 ML VIAL IVPB SCH ×2 (10:03→21:36)
[2020-06-18] MEDS: MULTIVITAMINS (DAILY MVI) TABLET (FP) PO SCH (10:14)
[2020-06-18] MEDS: FAMOTIDINE 20 MG/50 ML IVPB 20 MG/50 ML MG IVPB SCH ×2 (10:21→21:36)
[2020-06-18] MEDS: levETIRAcetam 500 MG/5 ML INJECTION VIAL IVPB SCH ×2 (10:21→21:36)
[2020-06-18] MEDS: POTASSIUM CHLORIDE 40 MEQ in AMINO ACIDS 4.25%/D5W 1,000 ML IV SCH ×2 (13:12→21:35)
[2020-06-18 13:31] LABS: EOS % 4.3 % (0-4.5); HEMOGLOBIN 9.7 GM/dL (10.7-15.3); LYMPH % 17.4 % (8-40); MCH 30.4 pg (25.7-33.7); MCHC 33.3 g/dl (32.0-36.0); MEAN CELL VOLUME 91.3 fl (80-96); MEAN PLT VOLUME 8.4 fl (7.5-11.1); MONO % 10.6 % (3.8-10.2); NEUT % 66.7 % (42.8-82.8); PLATELET COUNT 382 K/MM3 (134-434); RBC 3.18 M/mm3 (3.60-5.2); RDW 13.9 % (11.6-15.6); WHITE BLOOD COUNT 6.1 K/mm3 (4.0-10.0)
[2020-06-18 13:52] LABS: POTASSIUM 4.1 mmol/L (3.5-5.1)
[2020-06-18 14:09] LABS: CALCIUM 9.2 mg/dL (8.5-10.1)
[2020-06-18 14:10] LABS: ALBUMIN 2.2 g/dl (3.4-5.0); BLOOD UREA NITROGEN 14.4 mg/dL (7-18); MAGNESIUM 1.7 mg/dL (1.8-2.4)
[2020-06-18 14:13] LABS: CREATININE 0.4 mg/dL (0.55-1.3); PHOSPHOROUS 2.5 mg/dL (2.5-4.9)
[2020-06-18 14:15] LABS: TOT PROT 6.1 g/dl (6.4-8.2)
[2020-06-18 14:37] LABS: BILIRUBIN,TOTAL 0.4 mg/dL (0.2-1)
[2020-06-18] MEDS: ATORVASTATIN CA 10 MG TABLET (FP) PO SCH (21:37)
[2020-06-19 08:34] LABS: BASO % 0.9 % (0-2.0); EOS % 3.9 % (0-4.5); HEMATOCRIT 29.2 % (32.4-45.2); HEMOGLOBIN 9.8 GM/dL (10.7-15.3); LYMPH % 15.2 % (8-40); MCH 30.3 pg (25.7-33.7); MCHC 33.5 g/dl (32.0-36.0); MEAN CELL VOLUME 90.5 fl (80-96); MEAN PLT VOLUME 8.2 fl (7.5-11.1); MONO % 13.5 % (3.8-10.2); NEUT % 66.5 % (42.8-82.8); PLATELET COUNT 429 K/MM3 (134-434); RBC 3.23 M/mm3 (3.60-5.2); WHITE BLOOD COUNT 6.8 K/mm3 (4.0-10.0)
[2020-06-19 09:01] LABS: POTASSIUM 3.9 mmol/L (3.5-5.1)
[2020-06-19 09:08] LABS: ALBUMIN 2.3 g/dl (3.4-5.0)
[2020-06-19 09:09] LABS: BLOOD UREA NITROGEN 14.8 mg/dL (7-18); CALCIUM 9.2 mg/dL (8.5-10.1)
[2020-06-19 09:10] LABS: MAGNESIUM 1.5 mg/dL (1.8-2.4)
[2020-06-19 09:13] LABS: CREATININE 0.5 mg/dL (0.55-1.3)
[2020-06-19 09:14] LABS: PHOSPHOROUS 2.6 mg/dL (2.5-4.9)
[2020-06-19 09:15] LABS: TOT PROT 6.6 g/dl (6.4-8.2)
[2020-06-19 09:16] LABS: BILIRUBIN,TOTAL 0.2 mg/dL (0.2-1)
[2020-06-19] MEDS: FAMOTIDINE 20 MG/50 ML IVPB 20 MG/50 ML MG IVPB SCH ×2 (10:01→21:48)
[2020-06-19] MEDS: levETIRAcetam 500 MG/5 ML INJECTION VIAL IVPB SCH ×2 (10:02→21:49)
[2020-06-19] MEDS: PHENobarbital SODIUM 65 MG/1 ML VIAL IVPB SCH ×2 (10:05→21:51)
[2020-06-19] MEDS: MULTIVITAMINS (DAILY MVI) TABLET (FP) PO SCH (10:07)
[2020-06-19] MEDS ORDERED: MAGNESIUM SULF 50% (8.12 MEQ/2 ML-1 GM VIAL) IVPB ONE (11:37)
[2020-06-19] MEDS: POTASSIUM CHLORIDE 40 MEQ in AMINO ACIDS 4.25%/D5W 1,000 ML IV SCH ×2 (14:00)
[2020-06-19] MEDS: ATORVASTATIN CA 10 MG TABLET (FP) PO SCH (21:54)
[2020-06-19] MEDS ORDERED: ACETAMINOPHEN 325 MG TABLET (FP) PO ONE (23:13)
[2020-06-20] MEDS: POTASSIUM CHLORIDE 40 MEQ in AMINO ACIDS 4.25%/D5W 1,000 ML IV SCH ×2 (03:48→15:14)
[2020-06-20] MEDS: PHENobarbital SODIUM 65 MG/1 ML VIAL IVPB SCH ×2 (10:33→22:53)
[2020-06-20] MEDS: levETIRAcetam 500 MG/5 ML INJECTION VIAL IVPB SCH ×2 (10:34→23:31)
[2020-06-20] MEDS: FAMOTIDINE 20 MG/50 ML IVPB 20 MG/50 ML MG IVPB SCH ×2 (10:34→22:14)
[2020-06-20] MEDS: MULTIVITAMINS (DAILY MVI) TABLET (FP) PO SCH (10:35)
[2020-06-20] MEDS: ATORVASTATIN CA 10 MG TABLET (FP) PO SCH (22:30)
[2020-06-21] MEDS: POTASSIUM CHLORIDE 40 MEQ in AMINO ACIDS 4.25%/D5W 1,000 ML IV SCH (05:00)
[2020-06-21 09:50] LABS: HEMATOCRIT 28.3 % (32.4-45.2); HEMOGLOBIN 9.6 GM/dL (10.7-15.3); MCH 31.2 pg (25.7-33.7); MCHC 33.8 g/dl (32.0-36.0); MEAN CELL VOLUME 92.1 fl (80-96); MEAN PLT VOLUME 8.7 fl (7.5-11.1); PLATELET COUNT 349 K/MM3 (134-434); RBC 3.07 M/mm3 (3.60-5.2); RDW 14.1 % (11.6-15.6); WHITE BLOOD COUNT 6.8 K/mm3 (4.0-10.0)
[2020-06-21 10:26] LABS: BLOOD UREA NITROGEN 16.3 mg/dL (7-18)
[2020-06-21 10:27] LABS: ALBUMIN 2.3 g/dl (3.4-5.0); MAGNESIUM 1.9 mg/dL (1.8-2.4)
[2020-06-21 10:30] LABS: CREATININE 0.4 mg/dL (0.55-1.3)
[2020-06-21 10:31] LABS: TOT PROT 6.2 g/dl (6.4-8.2)
[2020-06-21 10:38] LABS: BILIRUBIN,TOTAL 0.2 mg/dL (0.2-1)
[2020-06-21] MEDS: FAMOTIDINE 20 MG/50 ML IVPB 20 MG/50 ML MG IVPB SCH ×2 (10:48→23:00)
[2020-06-21] MEDS: PHENobarbital SODIUM 65 MG/1 ML VIAL IVPB SCH ×2 (10:48→22:59)
[2020-06-21] MEDS: MULTIVITAMINS (DAILY MVI) TABLET (FP) PO SCH (10:48)
[2020-06-21] MEDS: levETIRAcetam 500 MG/5 ML INJECTION VIAL IVPB SCH ×2 (10:48→21:28)
[2020-06-21] MEDS ORDERED: MAGNESIUM SULF 50% (8.12 MEQ/2 ML-1 GM VIAL) IVPB ONE (12:02)
[2020-06-21 14:19] VITALS: BMI 28.2
[2020-06-21] MEDS ORDERED: FAMOTIDINE 20 MG TABLET PO ONE (22:14)
[2020-06-21] MEDS: ATORVASTATIN CA 10 MG TABLET (FP) NGT SCH (22:59)
[2020-06-22] MEDS: levETIRAcetam 500 MG TABLET (FP) PO SCH ×2 (09:40→21:40)
[2020-06-22] MEDS: MULTIVITAMINS (DAILY MVI) TABLET (FP) PO SCH (09:40)
[2020-06-22] MEDS: AMINO ACIDS/PROTEIN HYDROLYS 30 ML LIQUID.PKT PO SCH (09:40)
[2020-06-22] MEDS: PHENobarbital 30 MG TABLET PO SCH ×2 (09:40→21:40)
[2020-06-22] MEDS: FAMOTIDINE 10 MG TABLET PO SCH ×2 (09:40→21:40)
[2020-06-22] MEDS ORDERED: PT OWN MED DRAWER 7, Y5N ONE (21:33)
[2020-06-22] MEDS: ATORVASTATIN CA 10 MG TABLET (FP) NGT SCH (21:40)
[2020-06-23 08:59] LABS: BASO % 0.9 % (0-2.0); EOS % 4.7 % (0-4.5); HEMATOCRIT 29.9 % (32.4-45.2); HEMOGLOBIN 10.1 GM/dL (10.7-15.3); LYMPH % 16.1 % (8-40); MCH 30.6 pg (25.7-33.7); MCHC 33.7 g/dl (32.0-36.0); MEAN CELL VOLUME 90.9 fl (80-96); MEAN PLT VOLUME 8.5 fl (7.5-11.1); MONO % 12.7 % (3.8-10.2); NEUT % 65.6 % (42.8-82.8); PLATELET COUNT 301 K/MM3 (134-434); RBC 3.29 M/mm3 (3.60-5.2); RDW 14.8 % (11.6-15.6); WHITE BLOOD COUNT 7.5 K/mm3 (4.0-10.0)
[2020-06-23 09:22] LABS: POTASSIUM 3.5 mmol/L (3.5-5.1)
[2020-06-23 09:35] LABS: ALBUMIN 2.4 g/dl (3.4-5.0); BLOOD UREA NITROGEN 14.9 mg/dL (7-18); MAGNESIUM 1.9 mg/dL (1.8-2.4)
[2020-06-23 09:38] LABS: CREATININE 0.4 mg/dL (0.55-1.3)
[2020-06-23 09:39] LABS: PHOSPHOROUS 3.1 mg/dL (2.5-4.9)
[2020-06-23 09:40] LABS: BILIRUBIN,TOTAL 0.6 mg/dL (0.2-1); TOT PROT 6.6 g/dl (6.4-8.2)
[2020-06-23] MEDS: levETIRAcetam 500 MG TABLET (FP) PO SCH ×2 (10:00→21:33)
[2020-06-23] MEDS: PHENobarbital 30 MG TABLET PO SCH ×2 (10:00→21:33)
[2020-06-23] MEDS: MULTIVITAMINS (DAILY MVI) TABLET (FP) PO SCH (10:00)
[2020-06-23] MEDS: AMINO ACIDS/PROTEIN HYDROLYS 30 ML LIQUID.PKT PO SCH (10:01)
[2020-06-23] MEDS: FAMOTIDINE 10 MG TABLET PO SCH ×2 (10:01→21:33)
[2020-06-23] MEDS: ATORVASTATIN CA 10 MG TABLET (FP) NGT SCH (21:33)
[2020-06-24] MEDS: levETIRAcetam 500 MG TABLET (FP) PO SCH ×2 (09:27→21:36)
[2020-06-24] MEDS: AMINO ACIDS/PROTEIN HYDROLYS 30 ML LIQUID.PKT PO SCH (09:27)
[2020-06-24] MEDS: FAMOTIDINE 10 MG TABLET PO SCH ×2 (09:27→21:37)
[2020-06-24] MEDS: PHENobarbital 30 MG TABLET PO SCH ×2 (09:27→21:36)
[2020-06-24] MEDS: MULTIVITAMINS (DAILY MVI) TABLET (FP) PO SCH (09:27)
[2020-06-24 20:42] LABS: INR 1.03 (0.83-1.09); PROTHROMBIN TIME (PATIENT) 12.7 SEC (9.7-13.0)
[2020-06-24 20:45] LABS: ACTIVATED PTT 30.8 SECONDS (25.2-36.5)
[2020-06-24] MEDS: ATORVASTATIN CA 10 MG TABLET (FP) NGT SCH (21:36)
[2020-06-25] MEDS: AMINO ACIDS/PROTEIN HYDROLYS 30 ML LIQUID.PKT PO SCH (09:19)
[2020-06-25] MEDS: PHENobarbital 30 MG TABLET PO SCH ×2 (09:19→21:59)
[2020-06-25] MEDS: levETIRAcetam 500 MG TABLET (FP) PO SCH ×2 (09:19→21:59)
[2020-06-25] MEDS: FAMOTIDINE 10 MG TABLET PO SCH ×2 (09:19→21:59)
[2020-06-25] MEDS: MULTIVITAMINS (DAILY MVI) TABLET (FP) PO SCH (09:19)
[2020-06-25 09:27] LABS: BASO % 0.5 % (0-2.0); EOS % 9.5 % (0-4.5); HEMATOCRIT 30.9 % (32.4-45.2); HEMOGLOBIN 10.2 GM/dL (10.7-15.3); LYMPH % 16.1 % (8-40); MCH 30.3 pg (25.7-33.7); MEAN CELL VOLUME 91.7 fl (80-96); MEAN PLT VOLUME 8.8 fl (7.5-11.1); MONO % 11.8 % (3.8-10.2); NEUT % 62.1 % (42.8-82.8); PLATELET COUNT 252 K/MM3 (134-434); RBC 3.37 M/mm3 (3.60-5.2); RDW 14.7 % (11.6-15.6); WHITE BLOOD COUNT 7.1 K/mm3 (4.0-10.0)
[2020-06-25 09:46] LABS: POTASSIUM 3.5 mmol/L (3.5-5.1)
[2020-06-25 10:21] LABS: ALBUMIN 2.3 g/dl (3.4-5.0); BLOOD UREA NITROGEN 17.6 mg/dL (7-18); CALCIUM 8.7 mg/dL (8.5-10.1)
[2020-06-25 10:24] LABS: CREATININE 0.5 mg/dL (0.55-1.3)
[2020-06-25 10:25] LABS: PHOSPHOROUS 3.3 mg/dL (2.5-4.9)
[2020-06-25 10:26] LABS: BILIRUBIN,TOTAL 0.2 mg/dL (0.2-1); TOT PROT 6.3 g/dl (6.4-8.2)
[2020-06-25] MEDS: ATORVASTATIN CA 10 MG TABLET (FP) NGT SCH (21:59)
[2020-06-26] MEDS: AMINO ACIDS/PROTEIN HYDROLYS 30 ML LIQUID.PKT PO SCH (08:41)
[2020-06-26] MEDS: levETIRAcetam 500 MG TABLET (FP) PO SCH ×2 (09:27→22:52)
[2020-06-26] MEDS: FAMOTIDINE 10 MG TABLET PO SCH ×2 (09:27→22:52)
[2020-06-26] MEDS: PHENobarbital 30 MG TABLET PO SCH ×2 (09:28→22:53)
[2020-06-26] MEDS: MULTIVITAMINS (DAILY MVI) TABLET (FP) PO SCH (09:29)
[2020-06-26] MEDS: ATORVASTATIN CA 10 MG TABLET (FP) NGT SCH (22:52)
[2020-06-26] MEDS: ACETAMINOPHEN 650 MG/20.3 ML ORAL SOLUTION (CUPS) PO PRN (23:05)
[2020-06-27] MEDS: AMINO ACIDS/PROTEIN HYDROLYS 30 ML LIQUID.PKT PO SCH (07:56)
[2020-06-27] MEDS: MULTIVITAMINS (DAILY MVI) TABLET (FP) PO SCH (10:18)
[2020-06-27] MEDS: PHENobarbital 30 MG TABLET PO SCH ×2 (10:18→21:14)
[2020-06-27] MEDS: levETIRAcetam 500 MG TABLET (FP) PO SCH ×2 (10:18→21:14)
[2020-06-27] MEDS: FAMOTIDINE 10 MG TABLET PO SCH ×2 (10:19→21:14)
[2020-06-27] MEDS: ATORVASTATIN CA 10 MG TABLET (FP) NGT SCH (21:14)
[2020-06-27] MEDS ORDERED: ZINC OXIDE/PANTHENOL/VITAMIN E 56 GM TUBE TP PRN (23:00)
[2020-06-28 08:53] LABS: POTASSIUM 4.3 mmol/L (3.5-5.1)
[2020-06-28 08:58] LABS: BLOOD UREA NITROGEN 25.7 mg/dL (7-18)
[2020-06-28 08:59] LABS: CALCIUM 9.1 mg/dL (8.5-10.1)
[2020-06-28 09:01] LABS: CREATININE 0.5 mg/dL (0.55-1.3)
[2020-06-28] MEDS: PHENobarbital 30 MG TABLET PO SCH ×2 (09:53→23:54)
[2020-06-28] MEDS: FAMOTIDINE 10 MG TABLET PO SCH ×2 (09:53→23:53)
[2020-06-28] MEDS: AMINO ACIDS/PROTEIN HYDROLYS 30 ML LIQUID.PKT PO SCH (09:53)
[2020-06-28] MEDS: MULTIVITAMINS (DAILY MVI) TABLET (FP) PO SCH (09:53)
[2020-06-28] MEDS: levETIRAcetam 500 MG TABLET (FP) PO SCH ×2 (09:53→23:53)
[2020-06-28 14:05] LABS: BASO % 0.6 % (0-2.0); EOS % 6.9 % (0-4.5); HEMATOCRIT 31.4 % (32.4-45.2); HEMOGLOBIN 10.3 GM/dL (10.7-15.3); LYMPH % 16.3 % (8-40); MCH 30.5 pg (25.7-33.7); MCHC 32.9 g/dl (32.0-36.0); MEAN CELL VOLUME 92.6 fl (80-96); MEAN PLT VOLUME 9.1 fl (7.5-11.1); MONO % 9.9 % (3.8-10.2); NEUT % 66.3 % (42.8-82.8); PLATELET COUNT 263 K/MM3 (134-434); RBC 3.39 M/mm3 (3.60-5.2); RDW 15.2 % (11.6-15.6); WHITE BLOOD COUNT 6.8 K/mm3 (4.0-10.0)
[2020-06-28] MEDS: ATORVASTATIN CA 10 MG TABLET (FP) NGT SCH (23:53)
[2020-06-29] MEDS: MULTIVITAMINS (DAILY MVI) TABLET (FP) PO SCH (11:39)
[2020-06-29] MEDS: FAMOTIDINE 10 MG TABLET PO SCH ×2 (11:39→21:50)
[2020-06-29] MEDS: levETIRAcetam 500 MG TABLET (FP) PO SCH ×2 (11:39→21:50)
[2020-06-29] MEDS: AMINO ACIDS/PROTEIN HYDROLYS 30 ML LIQUID.PKT PO SCH (11:39)
[2020-06-29] MEDS: ATORVASTATIN CA 10 MG TABLET (FP) NGT SCH (21:50)
[2020-06-30] MEDS: AMINO ACIDS/PROTEIN HYDROLYS 30 ML LIQUID.PKT PO SCH (10:42)
[2020-06-30] MEDS: levETIRAcetam 500 MG TABLET (FP) PO SCH ×2 (10:42→21:36)
[2020-06-30] MEDS: FAMOTIDINE 10 MG TABLET PO SCH ×2 (10:42→21:36)
[2020-06-30] MEDS: MULTIVITAMINS (DAILY MVI) TABLET (FP) PO SCH (10:42)
[2020-06-30] MEDS: ATORVASTATIN CA 10 MG TABLET (FP) NGT SCH (21:36)
[2020-07-01] MEDS: AMINO ACIDS/PROTEIN HYDROLYS 30 ML LIQUID.PKT PO SCH (09:28)
[2020-07-01] MEDS: levETIRAcetam 500 MG TABLET (FP) PO SCH ×2 (09:28→22:08)
[2020-07-01] MEDS: MULTIVITAMINS (DAILY MVI) TABLET (FP) PO SCH (09:28)
[2020-07-01] MEDS: FAMOTIDINE 10 MG TABLET PO SCH ×2 (09:28→22:08)
[2020-07-01] MEDS: ACETAMINOPHEN 650 MG/20.3 ML ORAL SOLUTION (CUPS) PO PRN (22:07)
[2020-07-01] MEDS: ATORVASTATIN CA 10 MG TABLET (FP) NGT SCH (22:08)
[2020-07-02] MEDS: MULTIVITAMINS (DAILY MVI) TABLET (FP) PO SCH (09:00)
[2020-07-02] MEDS: AMINO ACIDS/PROTEIN HYDROLYS 30 ML LIQUID.PKT PO SCH (09:00)
[2020-07-02] MEDS: levETIRAcetam 500 MG TABLET (FP) PO SCH ×2 (09:00→22:41)
[2020-07-02] MEDS: FAMOTIDINE 10 MG TABLET PO SCH ×2 (09:01→22:41)
[2020-07-02] MEDS: ATORVASTATIN CA 10 MG TABLET (FP) NGT SCH (22:41)
[2020-07-03] MEDS: AMINO ACIDS/PROTEIN HYDROLYS 30 ML LIQUID.PKT PO SCH (08:56)
[2020-07-03] MEDS: FAMOTIDINE 10 MG TABLET PO SCH ×2 (09:03→21:26)
[2020-07-03] MEDS: MULTIVITAMINS (DAILY MVI) TABLET (FP) PO SCH (09:03)
[2020-07-03] MEDS: levETIRAcetam 500 MG TABLET (FP) PO SCH ×2 (09:03→21:26)
[2020-07-03] MEDS: ATORVASTATIN CA 10 MG TABLET (FP) NGT SCH (21:26)
[2020-07-04] MEDS: levETIRAcetam 500 MG TABLET (FP) PO SCH ×2 (09:03→22:08)
[2020-07-04] MEDS: AMINO ACIDS/PROTEIN HYDROLYS 30 ML LIQUID.PKT PO SCH (09:03)
[2020-07-04] MEDS: MULTIVITAMINS (DAILY MVI) TABLET (FP) PO SCH (09:03)
[2020-07-04] MEDS: FAMOTIDINE 10 MG TABLET PO SCH ×2 (09:03→22:09)
[2020-07-04] MEDS: ACETAMINOPHEN 650 MG/20.3 ML ORAL SOLUTION (CUPS) PO PRN (18:28)
[2020-07-04] MEDS: ATORVASTATIN CA 10 MG TABLET (FP) NGT SCH (22:08)
[2020-07-05] MEDS: AMINO ACIDS/PROTEIN HYDROLYS 30 ML LIQUID.PKT PO SCH (10:17)
[2020-07-05] MEDS: levETIRAcetam 500 MG TABLET (FP) PO SCH ×2 (10:18→22:37)
[2020-07-05] MEDS: FAMOTIDINE 10 MG TABLET PO SCH ×2 (10:18→22:37)
[2020-07-05] MEDS: MULTIVITAMINS (DAILY MVI) TABLET (FP) PO SCH (10:18)
[2020-07-05] MEDS: ATORVASTATIN CA 10 MG TABLET (FP) NGT SCH (22:37)
[2020-07-06] MEDS: AMINO ACIDS/PROTEIN HYDROLYS 30 ML LIQUID.PKT PO SCH (08:37)
[2020-07-06] MEDS: FAMOTIDINE 10 MG TABLET PO SCH ×2 (09:31→22:04)
[2020-07-06] MEDS: MULTIVITAMINS (DAILY MVI) TABLET (FP) PO SCH (09:31)
[2020-07-06] MEDS: levETIRAcetam 500 MG TABLET (FP) PO SCH ×2 (09:31→22:04)
[2020-07-06] MEDS: ATORVASTATIN CA 10 MG TABLET (FP) NGT SCH (22:04)
[2020-07-07] MEDS: MULTIVITAMINS (DAILY MVI) TABLET (FP) PO SCH (09:17)
[2020-07-07] MEDS: levETIRAcetam 500 MG TABLET (FP) PO SCH ×2 (09:18→22:17)
[2020-07-07] MEDS: FAMOTIDINE 10 MG TABLET PO SCH ×2 (09:18→22:18)
[2020-07-07] MEDS: AMINO ACIDS/PROTEIN HYDROLYS 30 ML LIQUID.PKT PO SCH (09:18)
[2020-07-07] MEDS: ACETAMINOPHEN 650 MG/20.3 ML ORAL SOLUTION (CUPS) PO PRN (22:17)
[2020-07-07] MEDS: ATORVASTATIN CA 10 MG TABLET (FP) NGT SCH (22:18)
[2020-07-08] MEDS: MULTIVITAMINS (DAILY MVI) TABLET (FP) PO SCH (10:02)
[2020-07-08] MEDS: AMINO ACIDS/PROTEIN HYDROLYS 30 ML LIQUID.PKT PO SCH (10:02)
[2020-07-08] MEDS: FAMOTIDINE 10 MG TABLET PO SCH (10:02)
[2020-07-08] MEDS: levETIRAcetam 500 MG TABLET (FP) PO SCH (10:02)
[2020-07-08 10:37] VITALS: BP 118/89; PULSE 119; TEMP 99.2
== END 2020-07-08 11:15 | DRG 853 ==
LOC: JER 15:30 → JERBED 19:40 → J8W 23:20 → J5S 06-04 18:53 → J6S 06-17 15:48
PROVIDERS: ADMIT Hospitalist; ATTEND Internal Medicine
PROC: 0TBB8ZX Excision of Bladder, Via Natural or Artificial Opening Endoscopic, Diagnostic (ICD-10-PCS; principal; 2020-06-16 16:00)
PROC: 0T5B8ZZ Destruction of Bladder, Via Natural or Artificial Opening Endoscopic (ICD-10-PCS; 2020-06-16 16:00)
DX: A41.2 Sepsis due to unspecified staphylococcus (principal); U07.1 COVID-19; J96.01 Acute respiratory failure with hypoxia; N39.0 Urinary tract infection, site not specified; E87.0 Hyperosmolality and hypernatremia; E87.2 Acidosis; E46 Unspecified protein-calorie malnutrition; D62 Acute posthemorrhagic anemia; R64 Cachexia; I10 Essential (primary) hypertension; R62.7 Adult failure to thrive; G30.9 Alzheimer's disease, unspecified; F02.80 Dementia in other diseases classified elsewhere, unspecified severity, without behavioral disturbance, psychotic disturbance, mood disturbance, and anxiety; R65.20 Severe sepsis without septic shock; E78.5 Hyperlipidemia, unspecified; R31.0 Gross hematuria; G40.909 Epilepsy, unspecified, not intractable, without status epilepticus; E86.9 Volume depletion, unspecified; J44.9 Chronic obstructive pulmonary disease, unspecified; F32.9 Major depressive disorder, single episode, unspecified; Z68.28 Body mass index [BMI] 28.0-28.9, adult; E86.0 Dehydration; E87.6 Hypokalemia; R00.0 Tachycardia, unspecified; E83.42 Hypomagnesemia; E83.39 Other disorders of phosphorus metabolism
CPT/HCPCS: 36415; 71045-TC-FY; 74178-TC; 76775-TC; 80048; 80053; 81003; 82248; 82272; 82550; 82728; 82962; 83605; 83615; 83735; 84100; 84443; 84484; 85025; 85027; 85379; 85610; 85730; 86140; 86769; 87040; 87086; 87186; 87804; 93005; 93010; 94760; 97161-GP; 99285-25; C9803; G0480; J0131; J3480; U0003